=== PATIENT | male | born 1975 | race Caucasian/White ===

== ENCOUNTER 2020-12-28 06:34 | Outpatient (REF) | payer OTHER, SELFPAY ==
[2020-12-28 07:36] LABS: Estimated Average Glucose 148 mg/dL; Hemoglobin A1c % 6.8 %
[2020-12-28 07:51] LABS: Alanine Aminotransferase 43 U/L (0-40); Albumin Level 4.7 g/dL (3.5-5.0); Alkaline Phosphatase 85 U/L (39-117); Anion Gap 14 (12-20); Aspartate Amino Transferase 25 U/L (5-37); Bilirubin Total 0.6 mg/dL (0.0-1.0); Blood Urea Nitrogen 17 mg/dL (9-16); Calcium 9.8 mg/dL (8.4-10.2); Carbon Dioxide 25 mmol/L (22-29); Chloride 100 mmol/L (96-108); Cholesterol 200 mg/dL; Estimated Glomerular Filt Rate > 60; Glucose Fasting 210 mg/dL (60-99); HDL Cholesterol 41 mg/dL; LDL Cholesterol Calculated 123 mg/dl; Potassium 4.6 mmol/L (3.3-5.1); Sodium 134 mmol/L (135-145); Total Protein 7.9 g/dL (6.5-8.0); Triglycerides 183 mg/dL
[2020-12-28 07:54] LABS: Creatinine Urine 198.21 mg/dL; Microalbum/Creatinine Ratio Ur 17.1 ug/mg cr
[2020-12-28 08:13] LABS: TSH reflex Free T4 3.64 uIU/mL (0.32-4.0)
== END 2020-12-28 06:35 | disposition home or self-care (01) ==
LOC: HO.LAB 06:34
PROVIDERS: PCP Nurse Practitioner Family; Visit Provider Nurse Practitioner Family
DX: Z00.00 Encounter for general adult medical examination without abnormal findings (principal); E11.9 Type 2 diabetes mellitus without complications
CPT/HCPCS: 36415; 80053; 80061; 82043; 83036; 84443

== ENCOUNTER 2021-02-27 06:04 | Outpatient (REF) | payer OTHER, SELFPAY ==
[2021-02-27 12:08] LABS: Alanine Aminotransferase 63 U/L (0-40); Albumin Level 4.5 g/dL (3.5-5.0); Alkaline Phosphatase 66 U/L (39-117); Anion Gap 15 (12-20); Aspartate Amino Transferase 45 U/L (5-37); Bilirubin Total 0.7 mg/dL (0.0-1.0); Blood Urea Nitrogen 11 mg/dL (9-16); Calcium 9.7 mg/dL (8.4-10.2); Carbon Dioxide 26 mmol/L (22-29); Chloride 102 mmol/L (96-108); Cholesterol 166 mg/dL; Estimated Glomerular Filt Rate > 60; Glucose Random 118 mg/dL (60-115); HDL Cholesterol 37 mg/dL; LDL Cholesterol Calculated 81 mg/dl; Potassium 4.7 mmol/L (3.3-5.1); Sodium 138 mmol/L (135-145); Total Protein 7.3 g/dL (6.5-8.0); Triglycerides 244 mg/dL
== END 2021-02-27 06:05 | disposition home or self-care (01) ==
LOC: HO.HMGCLDS 06:04
PROVIDERS: PCP Nurse Practitioner Family; Visit Provider Nurse Practitioner Family
DX: Z00.00 Encounter for general adult medical examination without abnormal findings (principal); E78.5 Hyperlipidemia, unspecified; E11.9 Type 2 diabetes mellitus without complications
CPT/HCPCS: 36415; 80053; 80061

== ENCOUNTER 2021-07-03 06:01 | Outpatient (REF) | payer OTHER, SELFPAY ==
[2021-07-03 11:45] LABS: Appearance Urine CLOUDY; Color Urine YELLOW; Glucose Urine UA 100 MG/DL (NEG); Leukocyte Esterase Urine NEG (NEG); Nitrite Urine NEG (NEG); Specific Gravity - Urine 1.025 (1.005-1.025); Urine Blood NEG (NEG); Urine Ketones NEG (NEG); Urine Protein NEG (NEG-TRACE)
[2021-07-03 11:56] LABS: TSH reflex Free T4 3.52 uIU/mL (0.32-4.0)
[2021-07-03 12:04] LABS: Alanine Aminotransferase 39 U/L (0-40); Albumin Level 4.2 g/dL (3.5-5.0); Alkaline Phosphatase 72 U/L (39-117); Anion Gap 12 (12-20); Aspartate Amino Transferase 27 U/L (5-37); Bilirubin Total 0.5 mg/dL (0.0-1.0); Blood Urea Nitrogen 7 mg/dL (9-16); Calcium 9.5 mg/dL (8.4-10.2); Carbon Dioxide 27 mmol/L (22-29); Chloride 104 mmol/L (96-108); Cholesterol 145 mg/dL; Estimated Glomerular Filt Rate > 60; Glucose Fasting 141 mg/dL (60-99); HDL Cholesterol 32 mg/dL; LDL Cholesterol Calculated 68 mg/dl; Potassium 4.3 mmol/L (3.3-5.1); Sodium 139 mmol/L (135-145); Total Protein 6.9 g/dL (6.5-8.0); Triglycerides 225 mg/dL
[2021-07-03 12:06] LABS: Estimated Average Glucose 143 mg/dL; Hemoglobin A1c % 6.6 %
== END 2021-07-03 06:02 | disposition home or self-care (01) ==
LOC: HO.HMGCLDS 06:01
PROVIDERS: PCP Nurse Practitioner Family; Visit Provider Nurse Practitioner Family
DX: I10 Essential (primary) hypertension (principal); E11.9 Type 2 diabetes mellitus without complications
CPT/HCPCS: 36415; 80053; 80061; 81003; 83036; 84443

== ENCOUNTER 2021-12-04 06:01 | Outpatient (REF) | payer OTHER, SELFPAY ==
[2021-12-04 11:33] LABS: Appearance Urine TURBID; Color Urine YELLOW; Glucose Urine UA 500 MG/DL (NEG); Leukocyte Esterase Urine NEG (NEG); Nitrite Urine NEG (NEG); PH 5.5 (5.0-8.0); Specific Gravity - Urine >= 1.030 (1.005-1.025); Urine Blood NEG (NEG); Urine Ketones 15 MG/DL (NEG); Urine Protein TRACE MG/DL (NEG-TRACE)
[2021-12-04 11:39] LABS: Estimated Average Glucose 189 mg/dL; Hemoglobin A1c % 8.2 %
[2021-12-04 12:06] LABS: Alanine Aminotransferase 41 U/L (0-40); Albumin Level 4.2 g/dL (3.5-5.0); Alkaline Phosphatase 79 U/L (39-117); Anion Gap 12 (12-20); Aspartate Amino Transferase 31 U/L (5-37); Bilirubin Total 0.5 mg/dL (0.0-1.0); Blood Urea Nitrogen 9 mg/dL (9-16); Calcium 9.4 mg/dL (8.4-10.2); Carbon Dioxide 26 mmol/L (22-29); Chloride 103 mmol/L (96-108); Cholesterol 153 mg/dL; Estimated Glomerular Filt Rate > 60; Glucose Fasting 185 mg/dL (60-99); HDL Cholesterol 32 mg/dL; LDL Cholesterol Calculated 79 mg/dl; Potassium 4.3 mmol/L (3.3-5.1); Sodium 137 mmol/L (135-145); Triglycerides 212 mg/dL
[2021-12-04 12:30] LABS: TSH reflex Free T4 4.01 uIU/mL (0.32-4.0)
[2021-12-04 13:59] LABS: Free T4 (Free Thyroxine) 0.96 ng/dL (0.71-1.85)
[2021-12-07 19:56] LABS: TS Negative Control Passed; TS Panel A 0; TS Panel B 0; TS Positive Control Passed; TSpotTB Negative (Negative)
== END 2021-12-04 06:02 | disposition home or self-care (01) ==
LOC: HO.HMGCLDS 06:01
PROVIDERS: Visit Provider Nurse Practitioner Family
DX: E11.9 Type 2 diabetes mellitus without complications (principal); Z11.1 Encounter for screening for respiratory tuberculosis
CPT/HCPCS: 36415; 80053; 80061; 81003; 83036; 84439; 84443; 86481

== ENCOUNTER → 2022-01-20 10:19 | Outpatient (BNVA) | payer OTHER, SELFPAY | PROVIDERS: PCP Nurse Practitioner Family; Visit Provider Nurse Practitioner Family | DX: K21.9 Gastro-esophageal reflux disease without esophagitis (principal); Z12.11 Encounter for screening for malignant neoplasm of colon ==

== ENCOUNTER 2022-04-14 07:26 | Day surgery (SDC) | payer OTHER, SELFPAY ==
[2022-04-07 17:32] VITALS: BMI 39.9
--- NOTE | 2022-04-11 08:37 | HO.ANESPROP2 ---
Documented by User: Rosa Salazar NP 04/11/22 08:39 HPI - Anesthesia Eval Consult details Narrative: 46yo M for Colonoscopy PMFSH Active Problems Active Problems: All Active Problems (Updated 03/12/22 @ 17:23 by TIMA ClaytonCARTER) COVID (Acute) Screening for colon cancer (Acute) Screening-pulmonary TB (Acute) HTN (hypertension) (Acute) Dyslipidemia (Acute) Diabetes (Acute) Physical exam (Acute) Gout attack (Acute) Past Medical History Medical History (Updated 04/11/22 @ 08:37 by Rosa Salazar NP) Diabetes Dyslipidemia HTN (hypertension) Family History Family History Father No problems noted. Mother No problems noted. Brother No problems noted. Sister No problems noted. Son No problems noted. Son No problems noted. Surgical History Surgical History History of hip replacement, total Hx of cholecystectomy Social History Social History Housing: House Alcohol intake: current Alcohol intake frequency: 3 or more drinks per day Alcohol type: beer Patient Tobacco Use Status: Current everyday Tobacco user Tobacco use type: Cigarette Cigarette Packs Per Day: 1.5 Years Smoked: 45 years e-Cigarette/Vaping Use: Never Used Use of substances other than those prescribed or required for medical reasons: No Are you DNR?: No Advance Directives: No Advance Directives Information Provided: Yes service: Yes Current occupational status: employed Current occupation: [employer] Current occupational exposures/hazards: No Meds Allergies Allergy/AdvReac Type Severity Reaction Status Date / Time amoxicillin [AMOXICILLIN] Allergy Mild HIVES Verified 03/12/22 17:20 Onzrxvk-GWA-PvD Reductase Allergy Mild severe leg Verified 03/12/22 17:20 Inhibitor cramps Home Medications Medication Instructions Recorded Confirmed Last Taken Type lancets 28 gauge (FreeStyle #100 ea 12/25/20 10/01/21 Unknown History Lancets) Exam Exam Date and Time: April 11, 2022 0837 Height,Weight and Vital Signs: Height 5 ft 11 in Weight 129.727 kg Pertinent Lab Results Pertinent Lab Results: Laboratory Tests 11/25/18 12/04/21 17:25 06:07 WBC 11.3 H Hgb 16.1 Hct 45.4 Plt Count 233 Sodium 137 Potassium 4.3 Chloride 103 Carbon Dioxide 26 BUN 9 Creatinine 1.10 Assessment and Plan Assessment Anesthesia Assessment: Chart Reviewed Documented by User: Maira Yen MD 04/14/22 08:27 [facility] Past Medical History Medical History (Updated 04/11/22 @ 08:37 by Rosa Salazar NP) Diabetes Dyslipidemia HTN (hypertension) Family History Family History Father No problems noted. Mother No problems noted. Brother No problems noted. Sister No problems noted. Son No problems noted. Son No problems noted. Family history of problems with anesthesia: No Surgical History Surgical History History of hip replacement, total Hx of cholecystectomy History of Problems with Anesthesia: No Social History Social History Housing: House Alcohol intake: current Alcohol intake frequency: 3 or more drinks per day Alcohol type: beer Patient Tobacco Use Status: Current everyday Tobacco user Tobacco use type: Cigarette Cigarette Packs Per Day: 1.5 Years Smoked: 45 years e-Cigarette/Vaping Use: Never Used Use of substances other than those prescribed or required for medical reasons: No Are you DNR?: No Advance Directives: No Advance Directives Information Provided: Yes service: Yes Current occupational status: employed Current occupation: [employer] Current occupational exposures/hazards: No Meds Allergies Allergy/AdvReac Type Severity Reaction Status Date / Time amoxicillin [AMOXICILLIN] Allergy Mild HIVES Verified 03/12/22 17:20 Rhqhoov-PAZ-VmF Reductase Allergy Mild severe leg Verified 03/12/22 17:20 Inhibitor cramps Home Medications Medication Instructions Recorded Confirmed Last Taken Type lancets 28 gauge (FreeStyle #100 ea 12/25/20 10/01/21 Unknown History Lancets) Exam Airway Mallampati Class: II TM Dist: >3cm Neck ROM: Full Heart: rrr Lungs: cta Assessment and Plan Assessment Anesthesia Assessment: Anesthesia Plan Discussed and Chart Reviewed Final Anesthetic Review Family History of Problems with Anesthesia: No History of Problems with Anesthesia: No NPO: Yes ASA Class: II Final Preanesthetic Review: No Changes in Pt Med Stat, Meds/Allgs Chart Reviewed and Consent Obtained/Reviewed Patient Risk: Intermediate Procedure Risk: Intermediate Anesthetic Plan Anesthetic Plan: MAC: Disposition: Standard PACU
[2022-04-14 07:29] VITALS: BMI 39.7
[2022-04-14 07:44] VITALS: BP 140/84; PULSE 75; RESP 18; TEMP 36.7; O2SAT 97
[2022-04-14 07:46] LABS: Glucose, Whole Blood 142 mg/dL (60-115)
--- NOTE | 2022-04-14 07:54 | MHC.SHP ---
Pre-Procedural Eval Section A Date of Service: 04/14/22 The patient is an INPATIENT: No The History & Physical has been completed within 30 days and I have reviewed it.: No Section B Chief Complaint: screening Details of Present Illness: Colon cancer screening Relevant Family History (Specify if Yes): No Relevant Social History: Tobacco Use Present Medications: see Short Stay Collaborative assessment Medical History: Significant History (Diabetes mellitus, hypertension, dyslipidemia) History of Previous Operations: Relevant previous surgery/procedure and date(s) (History of hip replacement, total Hx of cholecystectomy) Allergies: Allergies Allergy/AdvReac Type Severity Reaction Status Date / Time amoxicillin [AMOXICILLIN] Allergy Mild HIVES Verified 03/12/22 17:20 Jxparre-TVE-XcN Reductase Allergy Mild severe leg Verified 03/12/22 17:20 Inhibitor cramps Review of Systems Sugical H&P ROS: Negative: Constitution, Cardiovascular, Respiratory and Gastrointestinal Exam Surgical H&P Exam: Normal: Heart, Normal: Lungs, Normal: Extremities and Normal: Abdomen Plan Diagnosis/Plan: Unchanged I have reviewed the history and physical and performed a pertinent physical examination on my patient. No changes have occurred unless specified.
--- NOTE | 2022-04-14 07:55 | P.OP_ITS ---
Operative Note Operative Note Date of Service: 04/14/22 Narrative: Pre-op diagnosis: Colon cancer screening (1st colonoscopy) Post-op diagnosis:?other (Colon polyps, diverticulosis, hemorrhoids) Procedure: COLONOSCOPY TILL CECUM WITH BIOPSIES, SNARE POLYPECTOMY AND SUBMUCOSAL INJECTION Consent: Indications for the procedure and potential complications of bleeding, perforation, reaction to medications and missed diagnosis were discussed with the patient and informed consent was obtained. Instrument: Olympus PCF H 190 L variable stiffness pediatric colonoscope Monitoring: Vital signs and clinical assessment, intermittent blood pressure monitoring, continuous EKG monitoring, Pulse oximetry and Carbon Dioxide monitoring were done throughout the procedure. Colon withdrawl time was 27 minutes. Procedure: The patient was placed in the left lateral decubitis position and pre-procedure medications were administered. After a digital rectal examination of the ano-rectum, the video colonoscope was inserted into the rectum and advanced through the colon to the cecum. The colonoscope was slowly withdrawn in a retrograde panoramic fashion and the colon mucosa was carefully examined including a retroflexed view of the rectum. Findings and interventions are described below. Procedure Difficulty: Without difficulty Findings: Terminal Ileum: Not evaluated Cecum:? Normal Ascending Colon:? Normal Transverse Colon:? Normal Descending Colon:? Moderate diverticulosis Sigmoid Colon:? A 6-7 mm sessile polyp at 30 cms - biopsied. Edematous folds with patchy erythema from 25 to 40 cms - biopsies were obtained to rule out colitis.? Moderate diverticulosis Rectum:? A 3 x 2 cms sessile polyp from 5 to 8 cms - raised with 8 cc of Orise solution and removed with a hot snare Ano-rectum:? Moderate internal hemorrhoids Colon preparation:? Good? Impression and Post Procedure Diagnosis: Colonoscopy Findings: One large and one small polyps removed Edematous folds with patchy erythema from 25 to 40 cms in an area of diverticulosis - ? chronic segmental diverticulitis - biopsies were obtained to rule out colitis. Moderate diverticulosis seen in the left colon Moderate hemorrhoids on retroflexed exam. Plan: Await pathology results Patient has an appointment on 04/21/22 in the GI Clinic with Myah Larios FNP- BC . Repeat Colonoscopy interval based on path results - flex sig in 3-6 months if rectal polyp polyp is adenomatous and 10 years if polyps are hyperplastic. Above findings were reviewed with the patient and colon polyps and diverticulosis handouts were given in the discharge area Surgeon: Joellen Jaquez MD Anesthesia:?MAC (Dr Sutherland) Was an Dam Tender Assistant used for this Procedure?:?Yes Dam Tender Assistant:?Zoe Phelps Estimated blood loss (mL):?0 Pathology:?other (A. sigmoid colon bxs, R/O colitis? B. sigmoid colon polyp? C. rectal polyp with Orise) Condition:?stable Disposition:?PACU
[2022-04-14 09:15] VITALS: BP 118/72; PULSE 73; RESP 16; TEMP 36.7; O2SAT 94
[2022-04-14 09:30] VITALS: BP 127/85; PULSE 65; RESP 16; TEMP 36.7; O2SAT 97
== END 2022-04-14 09:49 | disposition home or self-care (01) ==
PROVIDERS: PCP Nurse Practitioner Family; Visit Provider Internal Medicine Gastroenterology
PROC: 0DJD8ZZ Inspection of Lower Intestinal Tract, Via Natural or Artificial Opening Endoscopic (ICD-10-PCS; CPT 45378; principal; 2022-04-14 08:30)
DX: Z12.11 Encounter for screening for malignant neoplasm of colon (principal); D12.8 Benign neoplasm of rectum; K63.5 Polyp of colon; K57.30 Diverticulosis of large intestine without perforation or abscess without bleeding; K64.8 Other hemorrhoids; K21.9 Gastro-esophageal reflux disease without esophagitis; I10 Essential (primary) hypertension; E11.9 Type 2 diabetes mellitus without complications; Z79.84 Long term (current) use of oral hypoglycemic drugs; Z79.899 Other long term (current) drug therapy; Z88.1 Allergy status to other antibiotic agents; Z88.8 Allergy status to other drugs, medicaments and biological substances; Z90.49 Acquired absence of other specified parts of digestive tract; Z96.641 Presence of right artificial hip joint; F17.210 Nicotine dependence, cigarettes, uncomplicated
CPT/HCPCS: 45385; 45380; 45381; 82947; 88305

== ENCOUNTER 2022-05-21 06:00 | Outpatient (REF) | payer OTHER, SELFPAY ==
[2022-05-21 11:22] LABS: Appearance Urine HAZY; Color Urine YELLOW; Glucose Urine UA 100 MG/DL (NEG); Leukocyte Esterase Urine NEG (NEG); Nitrite Urine NEG (NEG); Urine Blood NEG (NEG); Urine Ketones NEG (NEG); Urine Protein NEG (NEG-TRACE)
[2022-05-21 11:43] LABS: Estimated Average Glucose 148 mg/dL; Hemoglobin A1c % 6.8 %
[2022-05-21 12:02] LABS: Creatinine Urine 135.86 mg/dL; Microalbum/Creatinine Ratio Ur 16.9 ug/mg cr
[2022-05-21 12:10] LABS: Alanine Aminotransferase 41 U/L (0-40); Albumin Level 4.4 g/dL (3.5-5.0); Alkaline Phosphatase 69 U/L (39-117); Anion Gap 10 (12-20); Aspartate Amino Transferase 27 U/L (5-37); Bilirubin Total 0.6 mg/dL (0.0-1.0); Blood Urea Nitrogen 9 mg/dL (9-16); Calcium 9.5 mg/dL (8.4-10.2); Carbon Dioxide 27 mmol/L (22-29); Chloride 103 mmol/L (96-108); Cholesterol 161 mg/dL; Estimated Glomerular Filt Rate > 60; Glucose Fasting 158 mg/dL (60-99); HDL Cholesterol 37 mg/dL; LDL Cholesterol Calculated 90 mg/dl; Potassium 4.3 mmol/L (3.3-5.1); Sodium 136 mmol/L (135-145); Total Protein 7.2 g/dL (6.5-8.0); Triglycerides 172 mg/dL
== END 2022-05-21 06:01 | disposition home or self-care (01) ==
LOC: HO.HMGCLDS 06:00
PROVIDERS: Visit Provider Nurse Practitioner Family
DX: E11.9 Type 2 diabetes mellitus without complications (principal)
CPT/HCPCS: 36415; 80053; 80061; 81003; 82043; 83036; 84443

== ENCOUNTER 2022-08-29 12:33 | Day surgery (SDC) | payer BC, SELFPAY ==
[2022-08-26 13:50] VITALS: BMI 39.7
--- NOTE | 2022-08-28 12:11 | HO.ANESPROP2 ---
Documented by User: Rosa Salazar NP 08/28/22 12:11 HPI - Anesthesia Eval Consult details Narrative: 47yo M for Sigmoidoscopy Flexible ETOH daily PMFSH Active Problems Active Problems: All Active Problems (Updated 06/16/22 @ 17:07 by William Forbes, [facility]) Gout attack (Acute) Physical exam (Acute) Screening-pulmonary TB (Acute) Screening for colon cancer (Acute) COVID (Acute) Diabetes (Acute) Past Medical History Medical History Diabetes Diverticulosis Dyslipidemia HTN (hypertension) Tubular adenoma Family History Family History Father Substance use disorder Mother No problems noted. Brother No problems noted. Sister No problems noted. Son No problems noted. Son No problems noted. Family history of problems with anesthesia: No Surgical History Surgical History History of esophagogastroduodenoscopy (EGD) History of hip replacement, total History of surgery Hx of cholecystectomy Hx of colonoscopy History of Problems with Anesthesia: No Social History Social History (Updated 08/29/22 @ 13:51 by Sherri Wasserman MD) Housing: House Alcohol intake: current Alcohol intake frequency: 3 or more drinks per day Alcohol type: beer Patient Tobacco Use Status: Current everyday Tobacco user Tobacco use type: Cigarette Cigarette Packs Per Day: 1.5 Cigarettes Per Day: 30.0 Years Smoked: 32years Smoked in Last 30 Days: Yes e-Cigarette/Vaping Use: Never Used Second Hand Smoke Exposure: Yes Use of substances other than those prescribed or required for medical reasons: No Are you DNR?: No Advance Directives: No Advance Directives Information Provided: Yes service: Yes Current occupational status: employed Current occupation: [employer] Current occupational exposures/hazards: Yes Cognitive needs: No Hearing needs: No Vision needs: No Meds Allergies Allergy/AdvReac Type Severity Reaction Status Date / Time amoxicillin [AMOXICILLIN] Allergy Mild HIVES Verified 06/16/22 15:35 Yjgruxr-ZEK-MrO Reductase Allergy Mild severe leg Verified 06/16/22 15:35 Inhibitor cramps Home Medications Medication Instructions Recorded Confirmed Last Taken Type lancets 28 gauge (FreeStyle #100 ea 12/25/20 10/01/21 Unknown History Lancets) colchicine 0.6 mg tablet 0.6 mg PO DAILY PRN gout flare up 08/29/22 08/29/22 Unknown History Exam Exam Date and Time: August 28, 2022 1211 Height,Weight and Vital Signs: Height 5 ft 11 in Weight 129.274 kg Pertinent Lab Results Pertinent Lab Results: Laboratory Tests 05/21/22 06:05 Sodium 136 Potassium 4.3 Chloride 103 Carbon Dioxide 27 BUN 9 Creatinine 1.03 Assessment and Plan Assessment Anesthesia Assessment: Chart Reviewed Final Anesthetic Review Family History of Problems with Anesthesia: No History of Problems with Anesthesia: No Documented by User: Sherri Wasserman MD 08/29/22 13:51 [facility] Active Problems Active Problems: All Active Problems (Updated 06/16/22 @ 17:07 by William Forbes, [facility]) Gout attack (Acute) Physical exam (Acute) Screening-pulmonary TB (Acute) Screening for colon cancer (Acute) COVID (Acute) Diabetes (Acute) Daily ETOH Smoker Denies GRECIA Past Medical History Medical History Diabetes Diverticulosis Dyslipidemia HTN (hypertension) Tubular adenoma Family History Family History Father Substance use disorder Mother No problems noted. Brother No problems noted. Sister No problems noted. Son No problems noted. Son No problems noted. Surgical History Surgical History History of esophagogastroduodenoscopy (EGD) History of hip replacement, total History of surgery Hx of cholecystectomy Hx of colonoscopy Social History Social History (Updated 08/29/22 @ 13:51 by Sherri Wasserman MD) Housing: House Alcohol intake: current Alcohol intake frequency: 3 or more drinks per day Alcohol type: beer Patient Tobacco Use Status: Current everyday Tobacco user Tobacco use type: Cigarette Cigarette Packs Per Day: 1.5 Cigarettes Per Day: 30.0 Years Smoked: 32years Smoked in Last 30 Days: Yes e-Cigarette/Vaping Use: Never Used Second Hand Smoke Exposure: Yes Use of substances other than those prescribed or required for medical reasons: No Are you DNR?: No Advance Directives: No Advance Directives Information Provided: Yes service: Yes Current occupational status: employed Current occupation: [employer] Current occupational exposures/hazards: Yes Cognitive needs: No Hearing needs: No Vision needs: No Meds Allergies Allergy/AdvReac Type Severity Reaction Status Date / Time amoxicillin [AMOXICILLIN] Allergy Mild HIVES Verified 06/16/22 15:35 Heiuyzp-JWQ-PfQ Reductase Allergy Mild severe leg Verified 06/16/22 15:35 Inhibitor cramps Home Medications Medication Instructions Recorded Confirmed Last Taken Type lancets 28 gauge (FreeStyle #100 ea 12/25/20 10/01/21 Unknown History Lancets) colchicine 0.6 mg tablet 0.6 mg PO DAILY PRN gout flare up 08/29/22 08/29/22 Unknown History Exam Height,Weight and Vital Signs: Height 5 ft 11 in Weight 129.274 kg Vital Signs Temp Pulse Resp BP Pulse Ox O2 Del Method 08/29/22 12:57 97.3 F 77 16 136/84 97 Room Air Narrative Narrative: Lab Results 08/29/22 Range/Units 13:32 POC Glucose 129 H (60-115) mg/dL Airway Mallampati Class: II TM Dist: >3cm Neck ROM: Full Loose/Missing/Broken Teeth: Yes (Extraction bottom right) Heart: RRR Lungs: CTAB Assessment and Plan Final Anesthetic Review NPO: Yes ASA Class: III Final Preanesthetic Review: No Changes in Pt Med Stat, Meds/Allgs Chart Reviewed, Consent Obtained/Reviewed and Anes Risks/Benef Reviewed Patient Risk: Intermediate Procedure Risk: Low Assessment/Block/Sedation in SS: Assess/Block/Sedation-SS Anesthetic Plan Anesthetic Plan: MAC: Disposition: Standard PACU
[2022-08-29 12:45] VITALS: BMI 35.9
[2022-08-29 12:57] VITALS: BP 136/84; PULSE 77; RESP 16; TEMP 36.3; O2SAT 97
[2022-08-29] MEDS: Sodium Phosphate,Mono-Dibasic 133 ML ENEMA PR ×2 (13:10→13:17)
--- NOTE | 2022-08-29 13:13 | PC.NURSE ---
patient would prefer for self admin. bedside teaching performed. patient in bathroom admin fleet number one
[2022-08-29 13:36] LABS: Glucose, Whole Blood 129 mg/dL (60-115)
[2022-08-29] MEDS: Lactated Ringers 1,000 ML 100 ML IVCONT (13:43)
--- NOTE | 2022-08-29 14:10 | MHC.SHP ---
Pre-Procedural Eval Section A Date of Service: 08/29/22 The patient is an INPATIENT: No Section B Chief Complaint: Benign neoplasm,Diverticulosis of intestine, Details of Present Illness: colon cancer screening, follow-up of a large rectal polyp Relevant Family History (Specify if Yes): No Relevant Social History: Tobacco Use Present Medications: see Short Stay Collaborative assessment Medical History: Significant History (Diabetes Diverticulosis Dyslipidemia HTN (hypertension) Tubular adenoma) History of Previous Operations: Relevant previous surgery/procedure and date(s) (History of hip replacement, total Hx of cholecystectomy Hx of colonoscopy) Allergies: Allergies Allergy/AdvReac Type Severity Reaction Status Date / Time amoxicillin [AMOXICILLIN] Allergy Mild HIVES Verified 06/16/22 15:35 Bkluzbz-DMX-ZtP Reductase Allergy Mild severe leg Verified 06/16/22 15:35 Inhibitor cramps Review of Systems Sugical H&P ROS: Negative: Constitution, Cardiovascular, Respiratory and Gastrointestinal Exam Surgical H&P Exam: Normal: Heart, Normal: Lungs, Normal: Extremities and Normal: Abdomen Plan Diagnosis/Plan: Unchanged I have reviewed the history and physical and performed a pertinent physical examination on my patient. No changes have occurred unless specified.
--- NOTE | 2022-08-29 14:51 | P.BOP_ITS ---
Brief Operative Note Date of Service: 08/29/22 Pre-op diagnosis: colon cancer screen, follow-up of a large rectal polyp Post-op diagnosis: other ( colon polyps, diverticulosis, hemorrhoid) Procedure: FLEXIBLE SIGMOIDOSCOPY TO 40 CM WITH BIOPSIES AND SNARE POLYPECTOMY Surgeon: Joellen Jaquez MD Anesthesia: MAC Was an Mold Making [employer] Sheets Supervisor used for this Procedure?: No [employer] Sheets Supervisor: Man Nolasco Estimated blood loss (mL): 0 Pathology: other (A) Polyp Rectum at Polypectomy Site B) Polyp Rectal C) BXS Polypectomy site in Rectum) Condition: stable Disposition: PACU
--- NOTE | 2022-08-29 14:52 | P.OP_ITS ---
Operative Note Operative Note Date of Service: 08/29/22 Narrative: Pre-op diagnosis: colon cancer screen, follow-up of a large rectal polyp Post-op diagnosis:?other ( colon polyps, diverticulosis, hemorrhoid) Surgeon: Joellen Jaquez MD Anesthesia:?MAC FLEXIBLE SIGMOIDOSCOPY TILL 40 CMS WITH BIOPSIES AND SNARE POLYPECTOMY Consent: Indications for the procedure and potential complications of bleeding, perforation, reaction to medications and missed diagnosis were discussed with the patient and informed consent was obtained. Instrument: Olympus PCF H 190 L variable stiffness pediatric colonoscope Monitoring: Vital signs and clinical assessment, intermittent blood pressure monitoring, continuous EKG monitoring, Pulse oximetry and Carbon Dioxide monitoring were done throughout the procedure. Procedure: The patient was placed in the left lateral decubitis position and pre-procedure medications were administered. After a digital rectal examination of the ano-rectum, the video colonoscope was inserted into the rectum and advanced through the colon to the sigmoid colon at 40 cms. The colonoscope was slowly withdrawn in a retrograde panoramic fashion and the colon mucosa was carefully examined including a retroflexed view of the rectum. Findings and interventions are described below. Procedure Difficulty: Without difficulty Findings: Sigmoid Colon: Moderate diverticulosis Rectum: A 10-12 mm sessile polyp at 10 cms (at previous polypectomy site) - removed with a hot snare. Biopsies obtained from past polypectomy site. A 4-5 mm sessile polyp removed with a cold bx. Ano-rectum: Moderate internal hemorrhoids Colon preparation: Good Impression and Post Procedure Diagnosis: Colonoscopy Findings: Two small to medium sized polyps removed Moderate diverticulosis seen in the sigmoid colon Moderate hemorrhoids on retroflexed exam. Plan: Await pathology results Patient has an appointment on 09/11/22 in the GI Clinic with Myah Larios FNP-BC. Repeat Colonoscopy interval based on path results - in 3 years if polyps are a denomatous and due to a hx of colon polyps. Above findings were reviewed with the patient and colon polyps and diverticulosis handouts were given in the discharge area
[2022-08-29 14:56] VITALS: BP 106/53; PULSE 75; RESP 16; TEMP 37.1; O2SAT 94
[2022-08-29 15:11] VITALS: BP 118/67; PULSE 75; RESP 16; TEMP 37.1; O2SAT 94
== END 2022-08-29 15:20 | disposition home or self-care (01) ==
PROVIDERS: PCP Nurse Practitioner Family; Visit Provider Internal Medicine Gastroenterology
PROC: 0DJD8ZZ Inspection of Lower Intestinal Tract, Via Natural or Artificial Opening Endoscopic (ICD-10-PCS; CPT 45330; principal; 2022-08-29 13:50)
DX: Z12.11 Encounter for screening for malignant neoplasm of colon (principal); Z86.010 Personal history of colon polyps; K62.1 Rectal polyp; K57.30 Diverticulosis of large intestine without perforation or abscess without bleeding; K64.8 Other hemorrhoids; K21.9 Gastro-esophageal reflux disease without esophagitis; E78.5 Hyperlipidemia, unspecified; I10 Essential (primary) hypertension; E11.9 Type 2 diabetes mellitus without complications; Z79.84 Long term (current) use of oral hypoglycemic drugs; Z79.899 Other long term (current) drug therapy; Z88.1 Allergy status to other antibiotic agents; Z90.49 Acquired absence of other specified parts of digestive tract; F17.210 Nicotine dependence, cigarettes, uncomplicated
CPT/HCPCS: 45338; 45331; 82947; 88305; J2250

== ENCOUNTER 2023-06-06 13:01 | Outpatient (AMB) | payer BC, SELFPAY ==
--- NOTE | 2023-06-06 13:14 | AM.OFFWIN_ITS ---
Intake Vital Signs 06/06/23 13:18 BP 110/68 Blood Pressure Location Lt brachial Position Sitting Pulse 71 Pulse Source Pulse Oximeter Temp 98.8 F Temp Source Oral Pulse Oximetry (%) 98 Oxygen Delivery Method Room Air Intake Visit Reasons: Rt eye Metal? Intake Note: Pt is here today c/o Rt eye metal: Pt was working on his car Patient Tobacco Use Status: Current everyday Tobacco user Allergies amoxicillin [AMOXICILLIN] Allergy (Mild, Verified 06/06/23 13:22) HIVES Drdezxo-TJH-XgG Reductase Inhibitor Allergy (Mild, Verified 06/06/23 13:22) severe leg cramps Medication List - Last Reconciled 06/06/23 by Patrizia Monreal CNP blood sugar diagnostic As directed blood sugar diagnostic (FreeStyle Lite Strips) check glucose twice a day blood-glucose meter (FreeStyle Lite Meter kit) check glucose twice a day cholecalciferol (vitamin D3) 50 mcg PO DAILY 90 days colchicine (gout) 0.6 mg PO DAILY PRN diltiazem HCl ER 60 mg PO BID ezetimibe 10 mg PO DAILY 90 days lancets (FreeStyle Lancets) check glucose twice a day lisinopril 20 mg PO DAILY metformin 500 mg PO BID 90 days HPI HPI Comments History of Present Illness Details 48-year-old male presents today for metal in right eye after working on his car, he reports grinding metal with a thread grinder tool and a piece of metal got under his protective eye glasses in left inner corner. He reports was able to remove a small piece of metal w/ a q-tip, but he feels remaining fragment. He denies loss of vision, or visual changes, denies fever, chills, CP, SOB, headaches, abdominal pain, nausea, vomiting, changes in bowels or bladder. [facility] Medical History Diabetes Diverticulosis Dyslipidemia HTN (hypertension) Tubular adenoma Surgical History History of esophagogastroduodenoscopy (EGD) History of hip replacement, total History of surgery Hx of cholecystectomy Hx of colonoscopy Family History Father Substance use disorder Mother No problems noted. Brother No problems noted. Sister No problems noted. Son No problems noted. Son No problems noted. Social History Housing: House Alcohol intake: current Alcohol intake frequency: 3 or more drinks per day Alcohol type: beer Patient Tobacco Use Status: Current everyday Tobacco user Tobacco use type: Cigarette Cigarette Packs Per Day: 0.75 Cigarettes Per Day: 15 Years Smoked: 32years e-Cigarette/Vaping Use: Never Used Second Hand Smoke Exposure: Yes service: Yes Current occupational status: employed Current occupation: [employer] Current occupational exposures/hazards: Yes Cognitive needs: No Hearing needs: No Vision needs: No Review of Systems Const All systems reviewed & are unremarkable except as noted in HPI and below Physical Exam Vital Signs: Last Vital Signs Temp 98.8 F 06/06/23 13:18 Pulse 71 06/06/23 13:18 BP 110/68 06/06/23 13:18 Pulse Ox 98 06/06/23 13:18 Oxygen Delivery Method Room Air 06/06/23 13:18 Const General: healthy appearing and no acute distress Nutritional Appearance: well nourished Orientation/consciousness: patient oriented x3 Limitations: no limitations HEENT Head: Yes normocephalic and Yes atraumatic Eyes Visual Macias: normal visual macias by confrontation Periorbital: periorbital findings abnormal right periorbital tenderness and periorbital erythema Eyelids: Yes eyelids normal Corneas: fluorescein used (small pin point corneal abrasion right eye, left side of cornea;) and other (no metal or foreign body viewed ) Neck Neck: Yes normal visual inspection, Yes no lymphadenopathy and Yes supple Resp Effort & Inspection: normal respiratory effort, no cough, no respiratory distress and not tachypneic Auscultation: clear to auscultation bilaterally Cardio Rate: regular rate Rhythm: regular rhythm Heart sounds: S1 normal heart sound present and S2 normal heart sound present Peripheral pulses: Peripheral pulses 2+ throughout Neuro General: patient oriented x3, gait normal and moves all extremities Extrem General: Yes normal to inspection, Yes full ROM, Yes capillary refill normal and Yes no clubbing, cyanosis or edema Psych Appearance: well kempt Mental Status: mental status grossly normal Speech and movement: Normal speech and movement present Affect: normal affect Attitude: cooperative Assessment & Plan Assessment & Plan (1) Intraocular foreign body of right eye: Code(s): S05.51XA - Penetrating wound with foreign body of right eyeball, initial encounter Plan: 48-year-old male seen today for piece of metal in right eye w/ associated welding of metal while remodeling his car. No metal piece viewed or remaining + pin point corneal abrasion viewed with fluorescein Ofloxacin 0.3% 1-2 gtts right eye every 2-4hrs x 2 days, then 1-2 gtts 4 times a day for the remain 5 days. Prednisolone acetate 1% eye drop right eye, 1-2 gtts bid x 5 days Proparacaine 1 gtt right eye q 5 minutes x 5 drops F/U with Retail Sales Representative; referral sent. Orders: Referrals Optometry Referral S05.51XA - Penetrating wound with foreign body of right eyeball, initial encounter Medications: New ofloxacin 0.3% put 1-2 drps into affected eye(s) every 2-4 h x 2 days, then 1-2 drps 4 times/day days 3-7 ophthalmic (eye) 10 mL 0RF S05.51XA - Penetrating wound with foreign body of right eyeball, initial encounter proparacaine 0.5% 1 drp ophthalmic-Right Q5M 15 mL 0RF S05.51XA - Penetrating wound with foreign body of right eyeball, initial encounter prednisolone acetate 1% 1 drp ophthalmic (eye) BID 10 mL 0RF S05.51XA - Penetrating wound with foreign body of right eyeball, initial encounter Coding Level of Care Code Est Pt Level 3 (61700) Diagnoses Intraocular foreign body of right eye S05.51XA
[2023-06-06 13:18] VITALS: BP 110/68; PULSE 71; TEMP 37.1; O2SAT 98
== END 2023-06-06 13:51 | disposition home or self-care (01) ==
PROVIDERS: PCP Nurse Practitioner Family; Visit Provider Nurse Practitioner Acute Care
DX: S05.51XA Penetrating wound with foreign body of right eyeball, initial encounter (principal)
CPT/HCPCS: 99213

== ENCOUNTER 2023-07-08 06:01 | Outpatient (REF) | payer BC, SELFPAY ==
[2023-07-08 11:27] LABS: Appearance Urine Clear; Color Urine Yellow; Glucose Urine UA Negative (Negative); Leukocyte Esterase Urine Negative (Negative); Nitrite Urine Negative (Negative); PH 5.5 (5.0-9.0); Specific Gravity - Urine 1.015 (1.005-1.025); Urine Blood Negative (Negative); Urine Ketones Negative (Negative); Urine Protein Negative (Neg-Trace)
[2023-07-08 11:47] LABS: MANUAL DIFF FLAG NO
[2023-07-08 12:02] LABS: Basophils Absolute Auto 0.1 X10*3/uL (0.0-0.2); Basophils Percent Auto 0.7 % (0-2); Eosinophils Absolute Auto 0.2 X10*3/uL (0.0-0.4); Eosinophils Percent Auto 1.3 % (0-4); Hematocrit 52.3 % (42.0-52.0); Hemoglobin 18.4 g/dl (14.0-18.0); Imm Gran Abs Auto 0.04 X10*3/uL (0.00-0.03); Imm Gran Pct Auto 0.3 % (0.0-0.4); Lymphocytes Absolute Auto 3.1 X10*3/uL (1.2-4.9); Lymphocytes Percent Auto 22.3 % (20-40); Mean Corpuscular HGB Conc 35.2 g/dl (31.0-36.0); Mean Corpuscular Hemoglobin 33.6 pg (27.0-33.0); Mean Corpuscular Volume 95.4 fL (80.0-98.0); Mean Platelet Volume 10.5 fL (9.4-12.4); Monocytes Percent Auto 6.9 % (2-11); Neutrophils Absolute Auto 9.4 x10*3/uL (2.0-8.3); Neutrophils Percent Auto 68.5 % (45-73); Platelet Count 227 X10*3/uL (160-400); Red Blood Count 5.48 X10*6/uL (4.60-5.80); Red Cell Distribution Width 13.1 % (11.0-16.0); White Blood Count 13.7 X10*3/uL (4.8-10.8)
[2023-07-08 12:33] LABS: Creatinine Urine 110.23 mg/dL; Microalbum/Creatinine Ratio Ur 5.4 ug/mg cr (<30)
[2023-07-08 12:43] LABS: Alanine Aminotransferase 27 U/L (0-40); Albumin Level 4.4 g/dL (3.5-5.0); Alkaline Phosphatase 63 U/L (39-117); Anion Gap 13 (12-20); Aspartate Amino Transferase 29 U/L (5-37); Bilirubin Total 0.8 mg/dL (0.0-1.0); Blood Urea Nitrogen 10 mg/dL (9-16); Calcium 10.1 mg/dL (8.4-10.2); Carbon Dioxide 28 mmol/L (22-29); Chloride 103 mmol/L (96-108); Cholesterol 153 mg/dL (<200); Estimated Glomerular Filt Rate > 60; Glucose Fasting 88 mg/dL (60-99); HDL Cholesterol 40 mg/dL (>40); LDL Cholesterol Calculated 93 mg/dL (<100); Potassium 4.1 mmol/L (3.3-5.1); Sodium 140 mmol/L (135-145); TSH reflex Free T4 2.37 uIU/mL (0.32-4.0); Total Protein 7.5 g/dL (6.5-8.0); Triglycerides 104 mg/dL (<150)
== END 2023-07-08 06:02 | disposition home or self-care (01) ==
LOC: HO.HMGCLDS 06:01
PROVIDERS: PCP Nurse Practitioner Family; Visit Provider Nurse Practitioner Family
DX: E11.9 Type 2 diabetes mellitus without complications (principal)
CPT/HCPCS: 36415; 80053; 80061; 81003; 82043; 82570; 84443; 85025

== ENCOUNTER 2023-07-13 15:29 | Outpatient (AMB) | payer BC, SELFPAY ==
[2023-07-13 15:39] VITALS: BP 124/78; PULSE 80; O2SAT 97; BMI 34.7
--- NOTE | 2023-07-13 15:39 | A.OFFPC_ITS ---
Vital Signs 07/13/23 15:39 Height 5 ft 11 in Weight 249 lb BMI 34.7 BP 124/78 Blood Pressure Location Lt brachial Position Sitting Pulse 80 Pulse Source Pulse Oximeter Pulse Oximetry (%) 97 Oxygen Delivery Method Room Air Intake Visit Reasons: 6 month follow up DM Allergies amoxicillin [AMOXICILLIN] Allergy (Mild, Verified 07/13/23 15:41) HIVES Ltikcie-BAU-ZtY Reductase Inhibitor Allergy (Mild, Verified 07/13/23 15:41) severe leg cramps Medication List - Last Reconciled 07/13/23 [facility] blood sugar diagnostic As directed blood sugar diagnostic (FreeStyle Lite Strips) check glucose twice a day blood-glucose meter (FreeStyle Lite Meter kit) check glucose twice a day cholecalciferol (vitamin D3) 50 mcg PO DAILY 90 days colchicine (gout) 0.6 mg PO DAILY PRN diltiazem HCl ER 60 mg PO BID ezetimibe 10 mg PO DAILY 90 days lancets (FreeStyle Lancets) check glucose twice a day lisinopril 20 mg PO DAILY metformin 500 mg PO DAILY 90 days ofloxacin 0.3% put 1-2 drps into affected eye(s) every 2-4 h x 2 days, then 1-2 drps 4 times/day days 3-7 ophthalmic (eye) prednisolone acetate 1% 1 drp ophthalmic (eye) BID proparacaine 0.5% 1 drp ophthalmic-Right Q5M 5 doses Tobacco use date assessed: 07/13/23 Dental Screening Dental Screen Date: 07/13/23 Did you have a dental visit in the last 12 months?: Yes Did you have a dental problem in the last 6 months where you did not have access to dental care?: No Was dental information given to patient?: Patient has dentist HPI 6 month follow up DM HPI Details Pt is a diabetic, on an IRVIN. A1C in office today is 5.0. Microalbumin is up to date. Denies polyuria, polydipsia, and neuropathy. Pt denies any signs and symptoms of hypoglycemia and does know how to correct it. we will decrease his metformin to 500mg daily rather than bid. [facility] Medical History Diverticulosis Tubular adenoma HTN (hypertension) Dyslipidemia Diabetes Surgical History (Reviewed 07/13/23 @ 16:01 by William Forbes [facility]) History of surgery History of esophagogastroduodenoscopy (EGD) Hx of colonoscopy History of hip replacement, total Hx of cholecystectomy Family History (Reviewed 07/13/23 @ 16:11 by William Forbes [facility]) Father Substance use disorder Mother No problems noted. Brother No problems noted. Sister No problems noted. Son No problems noted. Son No problems noted. Social History (Reviewed 07/13/23 @ 16:11 by William Forbes [facility]) Housing: House Alcohol intake: current Alcohol intake frequency: 3 or more drinks per day Alcohol type: beer Patient Tobacco Use Status: Current everyday Tobacco user Tobacco use type: Cigarette Cigarette Packs Per Day: 0.75 Cigarettes Per Day: 15 Years Smoked: 32years e-Cigarette/Vaping Use: Never Used Second Hand Smoke Exposure: Yes service: Yes Current occupational status: employed Current occupation: [employer] Current occupational exposures/hazards: Yes Cognitive needs: No Hearing needs: No Vision needs: No Questionnaire Thrive Questionnaire Date Thrive assessed: 10/01/21 MARY-7 AMB Questionnaire MARY-7 Date MARY - 7 assessed: 10/01/21 Source: Developed by Drs. Man Cormier, Chanelle Gutierrez, Silvio Price and colleagues, with an educational genie from [employer]. Review of Systems Const Reports as per HPI Physical exam (Primary Care) Vital Signs: Last Vital Signs Pulse 80 07/13/23 15:39 BP 124/78 07/13/23 15:39 Pulse Ox 97 07/13/23 15:39 Oxygen Delivery Method Room Air 07/13/23 15:39 BMI result Body Mass Index 34.7 Tobacco/Smoking Status: Tobacco use Status Tobacco use date assessed 07/13/23 07/13/23 15:44 Patient Tobacco Use Status Current everyday Tobacco 07/13/23 15:44 Tobacco use type Cigarette 07/13/23 15:44 e-Cigarette/Vaping Use Never Used 07/13/23 15:44 Thrive Assessment: Date of Thrive Assessment Date Thrive assessed 10/01/21 07/13/23 15:44 Const General: cooperative Nutritional Appearance: obese Orientation/consciousness: patient oriented x3 Resp Effort & Inspection: normal respiratory effort Cardio Rate: regular rate Rhythm: regular rhythm Heart sounds: S1 normal heart sound present, S2 normal heart sound present and Murmur heart sound present Neuro General: patient oriented x3 Extrem Other: bilat feet: + sensation with use of monofilament, large callous to plantar medial aspect of left big toe Psych Appearance: grossly normal Mental Status: mental status grossly normal Speech and movement: Normal speech and movement present Affect: normal affect Attitude: cooperative Thought process: Normal thought process present Thought content: Normal thought content present Insight: Good insight present (Psych) Judgement: Good judgement present (Psych) Results AMB Hemoglobin A1c AMB Hemoglobin A1c 5.0 % Last Edit by Rere Wells CMA on 07/13/23 15: 58 Assessment and Plan Assessment & Plan (1) Diabetes: Code(s): E11.9 - Type 2 diabetes mellitus without complications Plan: Labs ordered. Plan The patient agreed to the use of a medical language specialist for this encounter. Scribed for SYLWIA Goodman by Macey Vega medical language specialist, on 07/13/2023 at 15:55 EST. Orders: Orders Comprehensive [place]. Panel Fast Today E11.9 - Type 2 diabetes mellitus without complications TSH reflex Free T4 Today E11.9 - Type 2 diabetes mellitus without complications AMB Hemoglobin A1c Today E11.9 - Type 2 diabetes mellitus without complications Complete Blood Count Auto Diff Today E11.9 - Type 2 diabetes mellitus without complications UA CC w/rflx Micro + Cult Today E11.9 - Type 2 diabetes mellitus without complications Lipid Panel Today E11.9 - Type 2 diabetes mellitus without complications Microalbumin, Random (w Creat) Today E11.9 - Type 2 diabetes mellitus without complications Medications: Changed From metformin 500 mg PO BID 90 days 180 tabs 2RF To metformin 500 mg PO DAILY 90 days 90 tabs 2RF Refilled lisinopril 20 mg PO DAILY 90 tabs 1RF diltiazem HCl ER 60 mg PO BID 180 caps 1RF ezetimibe 10 mg PO DAILY 90 days 90 tabs 1RF Coding Level of Care Code Est Pt Level 3 (42290) Diagnoses Diabetes E11.9
== END 2023-07-13 17:18 | disposition home or self-care (01) ==
PROVIDERS: Visit Provider Nurse Practitioner Family
DX: E11.9 Type 2 diabetes mellitus without complications (principal)
CPT/HCPCS: 83036; 99213

== ENCOUNTER 2023-12-31 15:34 | Outpatient (AMB) | payer BC, SELFPAY ==
[2023-12-31 15:38] VITALS: BP 144/80; PULSE 70; TEMP 36.9; O2SAT 98; BMI 34.7
--- NOTE | 2023-12-31 15:38 | MHC.OFFWIV ---
Intake Vital Signs 12/31/23 15:38 Height 5 ft 11 in Weight 249 lb BMI 34.7 BP 144/80 H Blood Pressure Location Lt brachial Position Sitting Pulse 70 Pulse Source Pulse Oximeter Temp 98.4 F Temp Source Oral Pulse Oximetry (%) 98 Oxygen Delivery Method Room Air Intake Visit Reasons: EST/head pressure (lobby masked) Intake Note: pt is here for c/o head pressure Patient Tobacco Use Status: Current everyday Tobacco user Allergies amoxicillin [AMOXICILLIN] Allergy (Mild, Verified 12/31/23 15:39) HIVES Qhhaaeq-THS-TmX Reductase Inhibitor Allergy (Mild, Verified 12/31/23 15:39) severe leg cramps Do you need a note to return to daycare/school/sports/work: Yes HPI HPI Comments History of Present Illness Details 48 y/o male patient who presents to walk in clinic with c/o sinus pressure and congestion and headaches. His family at home with similar symptoms. Denies fevers, chills, nausea or vomiting. PFSH Medical History Diverticulosis Tubular adenoma HTN (hypertension) Dyslipidemia Diabetes Surgical History History of surgery History of esophagogastroduodenoscopy (EGD) Hx of colonoscopy History of hip replacement, total Hx of cholecystectomy Family History Father Substance use disorder Mother No problems noted. Brother No problems noted. Sister No problems noted. Son No problems noted. Son No problems noted. Social History Housing: House Alcohol intake: current Alcohol intake frequency: 3 or more drinks per day Alcohol type: beer Patient Tobacco Use Status: Current everyday Tobacco user Tobacco use type: Cigarette Cigarette Packs Per Day: 0.75 Cigarettes Per Day: 15 Years Smoked: 32years e-Cigarette/Vaping Use: Never Used Second Hand Smoke Exposure: Yes service: Yes Current occupational status: employed Current occupation: [employer] Current occupational exposures/hazards: Yes Cognitive needs: No Hearing needs: No Vision needs: No Review of Systems Const All systems reviewed & are unremarkable except as noted in HPI and below Physical Exam Vital Signs: Last Vital Signs Temp 98.4 F 12/31/23 15:38 Pulse 70 12/31/23 15:38 BP 144/80 H 12/31/23 15:38 Pulse Ox 98 12/31/23 15:38 Oxygen Delivery Method Room Air 12/31/23 15:38 BMI result Body Mass Index 34.7 Const General: comfortable and no acute distress HEENT Head: Yes normocephalic Ears: external ears normal and TM's normal bilaterally General nose exam: Abnormal mucous membranes and turbinates present boggy and erythematous Face and sinus: Yes sinus tenderness Mouth: moist mucous membranes and Abnormal oral and palatal mucosa present Throat: Yes posterior oropharynx normal and Yes uvula midline Eyes Pupils: Equal, round and reactive pupils present Resp Effort & Inspection: normal respiratory effort, able to speak in complete sentences and Actively coughing Auscultation: no crackles, no rales, no rhonchi and wheezes expiratory wheezes, left lower and left upper Cardio Rate: regular rate Rhythm: regular rhythm Neuro Cranial nerves: Yes Equal, round and reactive pupils present Assessment & Plan Assessment & Plan (1) Acute rhinosinusitis: Code(s): J01.90 - Acute sinusitis, unspecified Plan: - OTC remedies - Acetaminophen for pain relief - Rest - Warm fluids - Take medicine as directed. (2) Wheezing on auscultation: Code(s): R06.2 - Wheezing Plan: - OTC remedies - Acetaminophen for pain relief - Rest - Warm fluids - Take medicine as directed. Plan - OTC remedies - Acetaminophen for pain relief - Rest - Warm fluids - Take medicine as directed. Orders: Orders SARS-CoV2/FLU/RSV Today J01.90 - Acute sinusitis, unspecified, R06.2 - Wheezing Medications: New azithromycin 500 mg PO DAILY 5 days 5 tabs 0RF J01.90 - Acute sinusitis, unspecified prednisone 50 mg PO DAILY 5 days 5 tabs 0RF R06.2 - Wheezing albuterol sulfate 90 mcg/actuation 2 puffs inhalation Q4-6H PRN 6.7 grams 0RF shortness of breath or wheezing R06.2 - Wheezing Coding Level of Care Code Est Pt Level 3 (69354) Diagnoses Acute rhinosinusitis J01.90 Wheezing on auscultation R06.2 Time Spent (min) 15
== END 2023-12-31 16:09 | disposition home or self-care (01) ==
PROVIDERS: PCP Nurse Practitioner Family; Visit Provider Nurse Practitioner Family
DX: J01.90 Acute sinusitis, unspecified (principal); R06.2 Wheezing
CPT/HCPCS: 99213

== ENCOUNTER 2023-12-31 15:55 | Outpatient (REF) | payer BC, SELFPAY ==
[2024-01-01 14:31] LABS: Influenza A PCR NEGATIVE (Negative); Influenza B PCR NEGATIVE (Negative); Resp Syncy Virus RNA Qual PCR NEGATIVE (Negative); SARS COV2 PCR INHOUSE NEGATIVE (Negative)
== END 2023-12-31 15:56 | disposition home or self-care (01) ==
LOC: HO.LAB 15:55
PROVIDERS: Visit Provider Nurse Practitioner Family
DX: Z11.52 Encounter for screening for COVID-19 (principal); Z20.822 Contact with and (suspected) exposure to COVID-19; J01.90 Acute sinusitis, unspecified; R06.2 Wheezing
CPT/HCPCS: 0241U

== ENCOUNTER 2024-01-20 15:58 | Outpatient (AMB) | payer BC, SELFPAY ==
[2024-01-20 16:01] VITALS: BP 144/80; PULSE 72; O2SAT 96; BMI 34.9
--- NOTE | 2024-01-20 16:01 | MHC.PC.OV ---
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 Allergies amoxicillin [AMOXICILLIN] Allergy (Mild, Verified 01/20/24 17:33) HIVES Eyokfha-FAY-KwD Reductase Inhibitor Allergy (Mild, Verified 01/20/24 17:33) severe leg cramps Medication List - Last Reconciled 01/20/24 by TIMA Clayton-CARTER albuterol sulfate 90 mcg/actuation 2 puffs inhalation Q4-6H PRN blood sugar diagnostic As directed blood sugar diagnostic (FreeStyle Lite Strips) check glucose twice a day blood-glucose meter (FreeStyle Lite Meter kit) check glucose twice a day cholecalciferol (vitamin D3) 50 mcg PO DAILY 90 days colchicine 0.6 mg PO DAILY diltiazem HCl ER 60 mg PO BID ezetimibe 10 mg PO DAILY 90 days lancets (FreeStyle Lancets) check glucose twice a day lisinopril 20 mg PO DAILY metformin 500 mg PO DAILY 90 days Tobacco use date assessed: 01/20/24 Dental Screening Dental Screen Date: 01/20/24 Did you have a dental visit in the last 12 months?: Yes Did you have a dental problem in the last 6 months where you did not have access to dental care?: No Was dental information given to patient?: Patient has dentist HPI Annual PE HPI Details Pt is here for a PE. Will order labs. Colon screen is up to date. Pt is a diabetic, on an IRVIN. A1C in office today is 5.5. Microalbumin is up to date. Denies polyuria, polydipsia, and neuropathy. Pt denies any signs and symptoms of hypoglycemia and does know how to correct it. Will stop metformin. Pt is a smoker, encouraged to quit. [facility] Medical History Diverticulosis Tubular adenoma HTN (hypertension) Dyslipidemia Diabetes Surgical History History of surgery History of esophagogastroduodenoscopy (EGD) Hx of colonoscopy History of hip replacement, total Hx of cholecystectomy Family History Father Substance use disorder Mother No problems noted. Brother No problems noted. Sister No problems noted. Son No problems noted. Son No problems noted. Social History Housing: House Alcohol intake: current Alcohol intake frequency: 3 or more drinks per day Alcohol type: beer Patient Tobacco Use Status: Current everyday Tobacco user Tobacco use type: Cigarette Cigarette Packs Per Day: 0.75 Cigarettes Per Day: 15 Years Smoked: 32years e-Cigarette/Vaping Use: Never Used Second Hand Smoke Exposure: Yes service: Yes Current occupational status: employed Current occupation: [employer] Current occupational exposures/hazards: Yes Cognitive needs: No Hearing needs: No Vision needs: No Questionnaire PHQ-9 Over the last 2 weeks, how often have you been bothered by any of the following problems? 1. Little interest or pleasure in doing things: not at all 2. Feeling down, depressed, or hopeless: not at all 3. Trouble falling or staying asleep, or sleeping too much: not at all 4. Feeling tired or having little energy: not at all 5. Poor appetite or overeating: not at all 6. Feeling bad about yourself - or that you are a failure or have let yourself or your family down: not at all 7. Trouble concentrating on things, such as reading the newspaper or watching television: not at all 8. Moving or speaking so slowly that other people could have noticed. Or the opposite - being so fidgety or restless that you have been moving around a lot more than usual: not at all 9. Thoughts that you would be better off or of hurting yourself in some way: not at all Total score: 0 Depression Screening Interpretation: Negative Depression Screening Done: Yes 64662 - PHQ-9 Billing: Yes Source: Developed by Drs. Man Cormier, Chanelle Gutierrez, Silvio Price and colleagues, with an educational genie from [employer]. Thrive Questionnaire Date Thrive assessed: 01/20/24 I am a: Patient What is your living situation today?: I have a steady place to live Within the past 12 months, did the food you bought not last and you didn't have the money to get more?: Never true Within the past 12 months, did you worry whether your food would run out before you got money to buy more?: Never true Do you have trouble paying for medicines?: No Do you have trouble getting transportation to medical appointments?: No Do you have trouble paying your heating and electricity bill?: No Do you have trouble taking care of your child, family member or friend?: No Do you have trouble with day-to-day activities such as bathing, preparing meals, shopping, managing finances, etc.?: No Are you currently unemployed and looking for a job?: No Are you interested in more education?: No Please select the resources that you would like help with: None Currently or been in a relationship where the following occur: no concerns reported THRIVE Score: 0 AUDIT C Alcohol Use Questionnaire (AUDIT-C) 1. How often do you have a drink containing alcohol?: 4 or more times a week 2. How many drinks containing alcohol do you have on a typical day when you are drinking?: 5 or 6 3. How often do you have six or more drinks on one occasion?: Weekly Total Score: 9 Score Reviewed/Action Taken: Yes MARY-7 AMB Questionnaire MARY-7 Date MARY - 7 assessed: 01/20/24 Feeling nervous, anxious, or on edge: 0 = Not at all Not being able to stop or control worryin = Not at all Worrying too much about different things: 0 = Not at all Trouble relaxin = Not at all Being so restless that it is hard to sit still: 0 = Not at all Becoming easily annoyed or irritable: 0 = Not at all Feeling afraid as if something awful might happen: 0 = Not at all Total MARY-7 score (0-4 normal; 5-9 mild; 10-14 moderate; 15-21 severe): 0 Source: Developed by Drs. Man Cormier, Chanelle Gutierrez, Silvio Price and colleagues, with an educational genie from [employer] MARY-7 Assessment Billing MARY-7 Assessment Tool: MARY-7 Assessment 82691 Review of Systems Const Denies chills and Denies fever(s) Eyes Denies blurry vision ENT Denies vertigo, Denies dizziness and Denies sore throat Card Denies chest pain at rest, Denies chest pain with activity, Denies diaphoresis, Denies dyspnea and Denies dyspnea on exertion Resp Denies cough, Denies dyspnea, Denies dyspnea on exertion and Denies wheezing GI Denies abdominal pain, Denies melena, Denies hematochezia, Denies constipation, Denies diarrhea and Denies loose stools Denies hematuria Musc Denies numbness and Denies tingling Skin/Breast Denies lesions Neuro Denies vertigo, Denies dizziness, Denies numbness and Denies tingling Psych Denies anxiety, Denies depression, Denies homicidal ideation, Denies suicidal ideation and Denies other (substance abuse) Aller/Immun Denies wheezing Physical exam (Primary Care) Vital Signs: Last Vital Signs Pulse 72 01/20/24 16:01 BP 132/86 01/20/24 16:52 Pulse Ox 96 01/20/24 16:01 BMI result Body Mass Index 34.9 Tobacco/Smoking Status: Tobacco use Status Tobacco use date assessed 01/20/24 01/20/24 16:08 Patient Tobacco Use Status Current everyday Tobacco 01/20/24 16:08 Tobacco use type Cigarette 01/20/24 16:08 e-Cigarette/Vaping Use Never Used 01/20/24 16:08 PHQ-9: PHQ-9 Score PHQ-9: Total score 0 01/20/24 16:52 Depression Screening Interpretation: Negative Thrive Assessment: Date of Thrive Assessment Date Thrive assessed 01/20/24 01/20/24 16:08 Currently or been in a relationship where the following occur: no concerns reported Const General: cooperative Nutritional Appearance: well nourished Orientation/consciousness: patient oriented x3 HENMT Head: Yes normal to inspection, Yes normocephalic and Yes atraumatic Ears: TM's normal bilaterally Eyes General: appearance normal, both eyes and all related structures Alignment and Position: alignment normal and position normal Neck Neck: Yes normal visual inspection and Yes no lymphadenopathy Thyroid: Thyroid normal Resp Effort & Inspection: normal respiratory effort Auscultation: clear to auscultation bilaterally Cardio Rate: regular rate Rhythm: regular rhythm Heart sounds: S1 normal heart sound present, S2 normal heart sound present and no murmurs GI Palpation (GI): Soft to palpation and nontender Auscultation: normal bowel sounds Male General Exam: Yes normal external exam Penis: normal penis Scrotum: scrotum normal, testes descended bilaterally and no inguinal hernias Testes: no testicular mass Skin Rashes: no rashes Neuro General: patient oriented x3, moves all extremities, no focal motor deficits and deep tendon reflexes 2+ bilaterally Romberg Test: Negative Extrem Other: refused foot exam Psych Appearance: grossly normal Mental Status: mental status grossly normal Speech and movement: Normal speech and movement present Affect: normal affect Attitude: cooperative Thought process: Normal thought process present Thought content: Normal thought content present Insight: Good insight present (Psych) Judgement: Good judgement present (Psych) Results AMB Hemoglobin A1c AMB Hemoglobin A1c 5.5 % Last Edit by Yasmin Rahman CMA on 01/20/24 16:17 Results Reviewed Results Reviewed: Laboratory Last Values Hgb A1c (Clinic) 5.5 % (4.0-6.0) 01/20/24 16:00 Assessment and Plan Assessment & Plan (1) Diabetes: Code(s): E11.9 - Type 2 diabetes mellitus without complications Plan: fairly well controlled (2) Physical exam: Code(s): Z00.00 - Encounter for general adult medical examination without abnormal findings Plan: labs (3) Screening-pulmonary TB: Code(s): Z11.1 - Encounter for screening for respiratory tuberculosis (4) Smoker: Code(s): F17.200 - Nicotine dependence, unspecified, uncomplicated Plan: encouraged to quit Plan The patient agreed to the use of a medical education specialist for this encounter. Scribed for TIMA Goodman-BC by Macey Vega medical education specialist, on 01/20/2024 at 16:35 EST. Orders: Orders Comprehensive [place]. Panel Fast Today E11.9 - Type 2 diabetes mellitus without complications, Z00.00 - Encounter for general adult medical examination without abnormal findings UA CC w/rflx Micro + Cult Today E11.9 - Type 2 diabetes mellitus without complications, Z00.00 - Encounter for general adult medical examination without abnormal findings Lipid Panel Today E11.9 - Type 2 diabetes mellitus without complications, Z00.00 - Encounter for general adult medical examination without abnormal findings T Spot TB Today Z11.1 - Encounter for screening for respiratory tuberculosis AMB Hemoglobin A1c Today E11.9 - Type 2 diabetes mellitus without complications Complete Blood Count Auto Diff Today E11.9 - Type 2 diabetes mellitus without complications, Z00.00 - Encounter for general adult medical examination without abnormal findings TSH reflex Free T4 Today E11.9 - Type 2 diabetes mellitus without complications, Z00.00 - Encounter for general adult medical examination without abnormal findings Microalbumin, Random (w Creat) Today E11.9 - Type 2 diabetes mellitus without complications, Z00.00 - Encounter for general adult medical examination without abnormal findings Medications: Discontinued metformin Discontinued Reason: Duplicate 500 mg PO DAILY 90 days 90 tabs 1RF Coding Level of Care Code Est Pt Prev Care 40-64y(26518) Diagnoses Diabetes E11.9 Physical exam Z00.00 Screening-pulmonary TB Z11.1 Smoker F17.200 Additional Codes MARY-7 Assessment Billing - MARY-7 Assessment Tool: MARY-7 Assessment 17396 ([id number])
[2024-01-20 16:52] VITALS: BP 132/86
== END 2024-01-20 17:01 | disposition home or self-care (01) ==
PROVIDERS: Visit Provider Nurse Practitioner Family
DX: Z00.00 Encounter for general adult medical examination without abnormal findings (principal); E11.9 Type 2 diabetes mellitus without complications; Z11.1 Encounter for screening for respiratory tuberculosis; F17.210 Nicotine dependence, cigarettes, uncomplicated
CPT/HCPCS: 83036; 99396

== ENCOUNTER 2024-02-09 06:02 | Outpatient (REF) | payer BC, SELFPAY ==
[2024-02-09 10:20] LABS: MANUAL DIFF FLAG NO
[2024-02-09 10:28] LABS: Appearance Urine Clear; Color Urine Yellow; Glucose Urine UA Negative (Negative); Leukocyte Esterase Urine Negative (Negative); Nitrite Urine Negative (Negative); PH 5.5 (5.0-9.0); Specific Gravity - Urine 1.015 (1.005-1.025); Urine Blood Negative (Negative); Urine Ketones Negative (Negative); Urine Protein Negative (Neg-Trace)
[2024-02-09 10:37] LABS: Basophils Absolute Auto 0.1 X10*3/uL (0.0-0.2); Basophils Percent Auto 0.9 % (0-2); Eosinophils Absolute Auto 0.2 X10*3/uL (0.0-0.4); Hematocrit 46.2 % (42.0-52.0); Hemoglobin 16.7 g/dl (14.0-18.0); Imm Gran Abs Auto 0.06 X10*3/uL (0.00-0.03); Imm Gran Pct Auto 0.7 % (0.0-0.4); Lymphocytes Absolute Auto 2.8 X10*3/uL (1.2-4.9); Lymphocytes Percent Auto 30.8 % (20-40); Mean Corpuscular HGB Conc 36.1 g/dl (31.0-36.0); Mean Corpuscular Hemoglobin 33.1 pg (27.0-33.0); Mean Corpuscular Volume 91.5 fL (80.0-98.0); Mean Platelet Volume 10.7 fL (9.4-12.4); Monocytes Absolute Auto 0.6 X10*3/uL (0.1-1.2); Monocytes Percent Auto 7.2 % (2-11); Neutrophils Absolute Auto 5.2 x10*3/uL (2.0-8.3); Neutrophils Percent Auto 58.4 % (45-73); Platelet Count 208 X10*3/uL (160-400); Red Blood Count 5.05 X10*6/uL (4.60-5.80); Red Cell Distribution Width 12.1 % (11.0-16.0); White Blood Count 8.9 X10*3/uL (4.8-10.8)
[2024-02-09 11:25] LABS: Alanine Aminotransferase 26 U/L (0-40); Albumin Level 4.2 g/dL (3.5-5.0); Alkaline Phosphatase 55 U/L (39-117); Anion Gap 14 (12-20); Aspartate Amino Transferase 24 U/L (5-37); Bilirubin Total 0.7 mg/dL (0.0-1.0); Blood Urea Nitrogen 9 mg/dL (9-16); Calcium 9.4 mg/dL (8.4-10.2); Carbon Dioxide 25 mmol/L (22-29); Chloride 104 mmol/L (96-108); Cholesterol 139 mg/dL (<200); Estimated Glomerular Filt Rate > 60; Glucose Fasting 102 mg/dL (60-99); HDL Cholesterol 38 mg/dL (>40); LDL Cholesterol Calculated 82 mg/dL (<100); Potassium 3.8 mmol/L (3.3-5.1); Sodium 139 mmol/L (135-145); TSH reflex Free T4 2.53 uIU/mL (0.32-4.0); Triglycerides 97 mg/dL (<150)
[2024-02-09 11:47] LABS: Creatinine Urine 96.72 mg/dL; Microalbum/Creatinine Ratio Ur 7.2 ug/mg cr (<30)
[2024-02-11 21:59] LABS: TS Negative Control Passed; TS Panel A 0; TS Panel B 0; TS Positive Control Passed; TSpotTB Negative (Negative)
== END 2024-02-09 06:03 | disposition home or self-care (01) ==
LOC: HO.HMGCLDS 06:02
PROVIDERS: PCP Nurse Practitioner Family; Visit Provider Nurse Practitioner Family
DX: Z00.00 Encounter for general adult medical examination without abnormal findings (principal); Z11.1 Encounter for screening for respiratory tuberculosis; E11.9 Type 2 diabetes mellitus without complications
CPT/HCPCS: 36415; 80053; 80061; 81003; 82043; 82570; 84443; 85025; 86481

== ENCOUNTER 2024-09-13 12:40 | Outpatient (AMB) | payer BC, SELFPAY ==
--- NOTE | 2024-09-13 12:45 | MHC.PC.OV ---
Vital Signs 09/13/24 12:46 Height 5 ft 11 in Weight 247 lb BMI 34.4 BP 130/78 Blood Pressure Location Lt brachial Position Sitting Pulse 74 Pulse Source Pulse Oximeter Pulse Oximetry (%) 97 Oxygen Delivery Method Room Air Intake Visit Reasons: f/u Intake Note: Pt is here today for a follow up visit to have paper work fill out. Allergies amoxicillin [AMOXICILLIN] Allergy (Mild, Verified 09/13/24 17:18) HIVES Rjtvzsd-APQ-IzB Reductase Inhibitor Allergy (Mild, Verified 09/13/24 17:18) severe leg cramps Medication List - Last Reconciled 09/13/24 by SYLWIA Clayton albuterol sulfate 90 mcg/actuation 2 puffs inhalation Q4-6H PRN blood sugar diagnostic As directed blood sugar diagnostic (FreeStyle Lite Strips) check glucose twice a day blood-glucose meter (FreeStyle Lite Meter kit) check glucose twice a day cholecalciferol (vitamin D3) 50 mcg PO DAILY 90 days colchicine 0.6 mg PO DAILY diltiazem HCl ER 60 mg PO BID ezetimibe 10 mg PO DAILY 90 days lancets (FreeStyle Lancets) check glucose twice a day lisinopril 20 mg PO DAILY Tobacco use date assessed: 09/13/24 Dental Screening Dental Screen Date: 01/20/24 HPI f/u HPI Details Pt had a right total hip replacement in 2019. A lot of pt's symptoms stem from his service from [id number]. Pt's orthopedic provider has agreed with this. 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 Again, this most likely did contribute to his severe osteoarthritis of the right hip (found in April of 2018) as well as his back injuries. Will write pt a note regarding his right total hip replacement and service. [facility] Medical History Diverticulosis Tubular adenoma HTN (hypertension) Dyslipidemia Diabetes Surgical History History of surgery History of esophagogastroduodenoscopy (EGD) Hx of colonoscopy History of hip replacement, total Hx of cholecystectomy Family History Father Substance use disorder Mother No problems noted. Brother No problems noted. Sister No problems noted. Son No problems noted. Son No problems noted. Social History Housing: House Alcohol intake: current Alcohol intake frequency: 3 or more drinks per day Alcohol type: beer Patient Tobacco Use Status: Current everyday Tobacco user Tobacco use type: Cigarette Cigarette Packs Per Day: 0.75 Cigarettes Per Day: 15 Years Smoked: 32years Packs Per Year: 0 Packs per year/per ci.00 e-Cigarette/Vaping Use: Never Used Second Hand Smoke Exposure: Yes service: Yes Current occupational status: employed Current occupation: [employer] Current occupational exposures/hazards: Yes Cognitive needs: No Hearing needs: No Vision needs: No Questionnaire PHQ-9 Over the last 2 weeks, how often have you been bothered by any of the following problems? 1. Little interest or pleasure in doing things: not at all 2. Feeling down, depressed, or hopeless: not at all 3. Trouble falling or staying asleep, or sleeping too much: not at all 4. Feeling tired or having little energy: not at all 5. Poor appetite or overeating: not at all 6. Feeling bad about yourself - or that you are a failure or have let yourself or your family down: not at all 7. Trouble concentrating on things, such as reading the newspaper or watching television: not at all 8. Moving or speaking so slowly that other people could have noticed. Or the opposite - being so fidgety or restless that you have been moving around a lot more than usual: not at all 9. Thoughts that you would be better off or of hurting yourself in some way: not at all Total score: 0 Depression Screening Interpretation: Negative Depression Screening Done: Yes 11850 - PHQ-9 Billing: Yes Source: Developed by Drs. Man Cormeir, Chanelle Gutierrez, Silvio Price and colleagues, with an educational genie from [employer]. Thrive Questionnaire Date Thrive assessed: 07/19/24 Within the past 12 months, did the food you bought not last and you didn't have the money to get more?: Never true Within the past 12 months, did you worry whether your food would run out before you got money to buy more?: Often true Do you have trouble paying for medicines?: No Do you have trouble getting transportation to medical appointments?: No Do you have trouble paying your heating and electricity bill?: No Do you have trouble taking care of your child, family member or friend?: No Do you have trouble with day-to-day activities such as bathing, preparing meals, shopping, managing finances, etc.?: No Are you currently unemployed and looking for a job?: No Are you interested in more education?: No Please select the resources that you would like help with: None Currently or been in a relationship where the following occur: No concerns reported THRIVE Score: 1 AUDIT C Alcohol Use Questionnaire (AUDIT-C) 3. How often do you have six or more drinks on one occasion?: Weekly Total Score: 3 Score Reviewed/Action Taken: Yes MARY-7 AMB Questionnaire MARY-7 Date MARY - 7 assessed: 09/13/24 Source: Developed by Drs. Man Cormier, Chanelle Gutierrez, Silvio Price and colleagues, with an educational genie from [employer]. Review of Systems Const Reports as per HPI Physical exam (Primary Care) Vital Signs: Last Vital Signs Pulse 74 09/13/24 12:46 BP 130/78 09/13/24 12:46 Pulse Ox 97 09/13/24 12:46 Oxygen Delivery Method Room Air 09/13/24 12:46 BMI result Body Mass Index 34.4 Tobacco/Smoking Status: Tobacco use Status Tobacco use date assessed 09/13/24 09/13/24 12:51 Patient Tobacco Use Status Current everyday Tobacco 09/13/24 12:51 Tobacco use type Cigarette 09/13/24 12:51 e-Cigarette/Vaping Use Never Used 09/13/24 12:51 PHQ-9: PHQ-9 Score PHQ-9: Total score 0 09/13/24 13:38 Depression Screening Interpretation: Negative Thrive Assessment: Date of Thrive Assessment Date Thrive assessed 07/19/24 09/13/24 12:51 Currently or been in a relationship where the following occur: No concerns reported Const General: cooperative Nutritional Appearance: obese Orientation/consciousness: patient oriented x3 Resp Effort & Inspection: normal respiratory effort Auscultation: clear to auscultation bilaterally Cardio Rate: regular rate Rhythm: regular rhythm Heart sounds: S1 normal heart sound present, S2 normal heart sound present and no murmurs Neuro General: patient oriented x3 Psych Appearance: grossly normal Mental Status: mental status grossly normal Speech and movement: Normal speech and movement present Affect: normal affect Attitude: cooperative Thought process: Normal thought process present Thought content: Normal thought content present Insight: Good insight present (Psych) Judgement: Good judgement present (Psych) Coding Level of Care Code Est Pt Level 3 (58572) Diagnoses Osteoarthritis M19.90 Additional Codes PHQ-9 - 15263 - PHQ-9 Billing: Yes ([id number]) Assessment & Plan Assessment & Plan (1) Osteoarthritis: Code(s): M19.90 - Unspecified osteoarthritis, unspecified site Category: Medical Plan: seeing ortho at [facility] Plan The patient agreed to the use of a administrative medical director for this encounter. Scribed for SYLWIA Goodman by Macey Vega administrative medical director, on 09/13/2024 at 13:00 EST.
[2024-09-13 12:46] VITALS: BP 130/78; PULSE 74; O2SAT 97; BMI 34.4
== END 2024-09-13 16:11 | disposition home or self-care (01) ==
PROVIDERS: PCP Nurse Practitioner Family; Visit Provider Nurse Practitioner Family
DX: M19.90 Unspecified osteoarthritis, unspecified site (principal)

== ENCOUNTER → 2024-09-13 12:40 | Outpatient (BNVA) | payer BC, SELFPAY | PROVIDERS: PCP Nurse Practitioner Family; Visit Provider Nurse Practitioner Family | DX: M19.90 Unspecified osteoarthritis, unspecified site (principal) | CPT/HCPCS: 96127 ==

== ENCOUNTER 2025-02-28 14:52 | Outpatient (AMB) | payer BC, SELFPAY ==
--- NOTE | 2025-02-28 14:56 | MHC.PC.OV ---
Vital Signs 02/28/25 14:57 Height 5 ft 11 in Weight 250 lb BMI 34.9 BP 132/80 Blood Pressure Location Lt brachial Position Sitting Pulse 72 Pulse Source Pulse Oximeter Pulse Oximetry (%) 98 Intake Visit Reasons: Annual PE- NEEDS A1C Accompanied by: Self / Same As Patient Allergies amoxicillin [AMOXICILLIN] Allergy (Mild, Verified 02/28/25 14:58) HIVES [id number] Reductase Inhibitor Allergy (Mild, Verified 02/28/25 14:58) severe leg cramps Medication List - Last Reconciled 02/28/25 by William Forbes [facility]- albuterol sulfate 90 mcg/actuation 2 puffs inhalation Q4-6H PRN blood sugar diagnostic As directed blood sugar diagnostic (FreeStyle Lite Strips) check glucose twice a day blood-glucose meter (FreeStyle Lite Meter kit) check glucose twice a day cholecalciferol (vitamin D3) 50 mcg PO DAILY 90 days colchicine 0.6 mg PO DAILY diltiazem HCl ER 60 mg PO BID ezetimibe 10 mg PO DAILY 90 days lancets (FreeStyle Lancets) check glucose twice a day lisinopril 20 mg PO DAILY Tobacco use date assessed: 02/28/25 Dental Screening Dental Screen Date: 02/28/25 Did you have a dental visit in the last 12 months?: Yes Did you have a dental problem in the last 6 months where you did not have access to dental care?: No Was dental information given to patient?: Patient has dentist HPI Annual PE- NEEDS A1C HPI Details History of Present Illness The patient is a 49-year-old male presenting for a physical examination and review of chronic health conditions, including Diabetes Mellitus and 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 He denies chest pain or shortness of breath but reports occasional use of albuterol for relief. He is frequently exposed to smoke and heavy metals at work, leading to plans for heavy metal screening. His Diabetes Mellitus appears well-managed with an A1c of 6.0 through diet. He denies symptoms of neuropathy and has an up-to-date eye examination. Erectile dysfunction is noted without associated urinary or gastrointestinal symptoms. Smoking history and UV exposure due to occupational outdoor work were discussed, and the importance of smoking cessation and sun protection were emphasized. Colonoscopy is due in the upcoming fall. Needs a referral back to urology for condyloma. 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 - Encouragement of laboratory evaluations soon to review health status. - Colon cancer screening deferred to the fall. - Discussed tobacco cessation and associated risks. - Plans to see a field marketing team leader to assess skin health. - Emphasized the importance of sunscreen as part of sun protection. 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 - Substance Use: Currently smokes; risks of smoking discussed. - Lifestyle: Works outside on some days with potential UV exposure. Review of Systems - Respiratory: Denies chest pain or shortness of breath. Reports relief with albuterol when needed. - Neurological: Denies neuropathy. - Gastrointestinal: Denies blood in stool, constipation, diarrhea. - Genitourinary: Denies urinary issues. - Constitutional: Denies fevers, chills. - Reports erectile dysfunction. Physical Exam General: Cooperative, healthy appearing, comfortable, no acute distress and well developed, obese Orientation: Patient oriented x3 Limitations: No limitations Head: Normal to inspection Ears: Hearing grossly normal bilaterally Nose: Normal external nose present Face and sinus: Normal facial exam Eyes: Appearance normal, both eyes and all related structures Neck: Normal visual inspection and Yes full ROM Respiratory: Normal respiratory effort and able to speak in complete sentences. Clear to auscultation bilaterally Cardiovascular: Regular rate and rhythm. Normal S1 and S2 GI: Normal to inspection. Soft to palpation and nontender gu: condyloma lesion noted to distal left shaft Skin: No rashes or lesions noted Neuro: Patient oriented x3 Extremities: Normal to inspection Results - Labs: Hemoglobin A1c at 6.0. Plan 1. 0. I have discussed the need for further lab evaluations shortly, including a testosterone level for reported erectile dysfunction. We are organizing a colonoscopy for the fall. Due to occupational exposure, I recommended heavy metal screening. Smoking cessation was outlined as a mathur focus, and I encouraged dermatological consultation for UV exposure risks related to his welding work.: Discussion Notes During the visit, I informed the patient about the importance of maintaining his current diabetes management regimen, considering his Hemoglobin A1c level is in good control at 6.0. We reviewed the necessity of regular laboratory investigations to monitor his health, including metals screening due to his occupation as a welder fabricator, which includes exposure to potential occupational hazards. I also advised the patient about the risks of smoking and the benefits of cessation, emphasizing that it could improve overall health including erectile dysfunction symptoms. A referral to dermatology for skin assessments was also discussed due to his occupational sun exposure. The patient was encouraged to undergo a colonoscopy in the forthcoming fall. Patient Instructions - Follow a balanced diet to maintain blood sugar levels. - Schedule laboratory evaluations to verify health status soon. - Plan for a colonoscopy in the fall. - Consider smoking cessation options. - Use sunscreen regularly to protect against UV rays. - Attend a field marketing team leader appointment as a safety measure. - Monitor any changes in health status and seek medical assistance if symptoms arise. [facility] Medical History Diverticulosis Tubular adenoma HTN (hypertension) Dyslipidemia Diabetes Surgical History History of surgery History of esophagogastroduodenoscopy (EGD) Hx of colonoscopy History of hip replacement, total Hx of cholecystectomy Family History Father Substance use disorder Mother No problems noted. Brother No problems noted. Sister No problems noted. Son No problems noted. Son No problems noted. Social History Housing: House Alcohol intake: current Alcohol intake frequency: 3 or more drinks per day Alcohol type: beer Patient Tobacco Use Status: Current everyday Tobacco user Tobacco use type: Cigarette Cigarette Packs Per Day: 0.75 Cigarettes Per Day: 15 Years Smoked: 32years e-Cigarette/Vaping Use: Never Used Second Hand Smoke Exposure: Yes service: Yes Current occupational status: employed Current occupation: [employer] Current occupational exposures/hazards: Yes Cognitive needs: No Hearing needs: No Vision needs: No Questionnaire PHQ-9 Over the last 2 weeks, how often have you been bothered by any of the following problems? 1. Little interest or pleasure in doing things: not at all 2. Feeling down, depressed, or hopeless: not at all 3. Trouble falling or staying asleep, or sleeping too much: not at all 4. Feeling tired or having little energy: not at all 5. Poor appetite or overeating: not at all 6. Feeling bad about yourself - or that you are a failure or have let yourself or your family down: not at all 7. Trouble concentrating on things, such as reading the newspaper or watching television: not at all 8. Moving or speaking so slowly that other people could have noticed. Or the opposite - being so fidgety or restless that you have been moving around a lot more than usual: not at all 9. Thoughts that you would be better off or of hurting yourself in some way: not at all Total score: 0 Depression Screening Interpretation: Negative Depression Screening Done: Yes 12597 - PHQ-9 Billing: Yes Source: Developed by Drs. Man Cormier, Chanelle Gutierrez, Silvio Price and colleagues, with an educational genie from [employer]. Thrive Questionnaire Date Thrive assessed: 02/28/25 I am a: Patient What is your living situation today?: I have a steady place to live Within the past 12 months, did the food you bought not last and you didn't have the money to get more?: Never true Within the past 12 months, did you worry whether your food would run out before you got money to buy more?: Never true Do you have trouble paying for medicines?: No Do you have trouble getting transportation to medical appointments?: No Do you have trouble paying your heating and electricity bill?: No Do you have trouble taking care of your child, family member or friend?: I choose not to answer this question Do you have trouble with day-to-day activities such as bathing, preparing meals, shopping, managing finances, etc.?: I choose not to answer this question Are you currently unemployed and looking for a job?: I choose not to answer this question Are you interested in more education?: I choose not to answer this question Please select the resources that you would like help with: None Currently or been in a relationship where the following occur: I choose not to answer THRIVE Score: 0 AUDIT C Alcohol Use Questionnaire (AUDIT-C) 1. How often do you have a drink containing alcohol?: 2-3 times a week 2. How many drinks containing alcohol do you have on a typical day when you are drinking?: 5 or 6 3. How often do you have six or more drinks on one occasion?: Daily or almost daily Total Score: 9 Score Reviewed/Action Taken: Yes MARY-7 AMB Questionnaire MARY-7 Date MARY - 7 assessed: 02/28/25 Feeling nervous, anxious, or on edge: 0 = Not at all Not being able to stop or control worryin = Not at all Worrying too much about different things: 0 = Not at all Trouble relaxin = Not at all Being so restless that it is hard to sit still: 0 = Not at all Becoming easily annoyed or irritable: 0 = Not at all Feeling afraid as if something awful might happen: 0 = Not at all Total MARY-7 score (0-4 normal; 5-9 mild; 10-14 moderate; 15-21 severe): 0 Source: Developed by Drs. Man Cormier, Chanelle Gutierrez, Silvio Price and colleagues, with an educational genie from [employer]. MARY-7 Assessment Billing MARY-7 Assessment Tool: MARY-7 Assessment 19986 Physical exam (Primary Care) Vital Signs: Last Vital Signs Pulse 72 02/28/25 14:57 BP 132/80 02/28/25 14:57 Pulse Ox 98 02/28/25 14:57 BMI result Body Mass Index 34.9 Tobacco/Smoking Status: Tobacco use Status Tobacco use date assessed 02/28/25 02/28/25 14:59 Patient Tobacco Use Status Current everyday Tobacco 02/28/25 14:59 Tobacco use type Cigarette 02/28/25 14:59 e-Cigarette/Vaping Use Never Used 02/28/25 14:59 PHQ-9: PHQ-9 Score PHQ-9: Total score 0 02/28/25 14:59 Depression Screening Interpretation: Negative Thrive Assessment: Date of Thrive Assessment Date Thrive assessed 02/28/25 02/28/25 14:59 Currently or been in a relationship where the following occur: I choose not to answer Results AMB Hemoglobin A1c AMB Hemoglobin A1c 6.0 % Last Edit by Flex Newberry CMA on 02/28/25 15:25 Results Reviewed Results Reviewed: Laboratory Last Values Hgb A1c (Clinic) 6.0 % (4.0-6.0) 02/28/25 15:24 Coding Level of Care Code Est Pt Prev Care 40-64y(89542) Diagnoses Diabetes E11.9 Physical exam Z00.00 Screening for prostate cancer Z12.5 Condyloma A63.0 Erectile dysfunction N52.9 Heavy metal exposure Z77.018 Screening for colon cancer Z12.11 Additional Codes MARY-7 Assessment Billing - MARY-7 Assessment Tool: MARY-7 Assessment 29381 ([id number]) PHQ-9 - 78508 - PHQ-9 Billing: Yes ([id number]) Assessment & Plan Assessment & Plan (1) Diabetes: Code(s): E11.9 - Type 2 diabetes mellitus without complications Category: Medical (2) Physical exam: Code(s): Z00.00 - Encounter for general adult medical examination without abnormal findings Category: Medical (3) Screening for prostate cancer: Code(s): Z12.5 - Encounter for screening for malignant neoplasm of prostate Category: Medical (4) Condyloma: Code(s): A63.0 - Anogenital (venereal) warts Category: Medical (5) Erectile dysfunction: Code(s): N52.9 - Male erectile dysfunction, unspecified Category: Medical (6) Heavy metal exposure: Code(s): Z77.018 - Contact with and (suspected) exposure to other hazardous metals Category: Medical (7) Screening for colon cancer: Code(s): Z12.11 - Encounter for screening for malignant neoplasm of colon Category: Medical Plan . Orders: Orders Comprehensive [place]. Panel Fast Today E11.9 - Type 2 diabetes mellitus without complications, Z00.00 - Encounter for general adult medical examination without abnormal findings Microalbumin, Random (w Creat) Today E11.9 - Type 2 diabetes mellitus without complications Prostate Specific Antigen Scr Today Z12.5 - Encounter for screening for malignant neoplasm of prostate Complete Blood Count Auto Diff Today E11.9 - Type 2 diabetes mellitus without complications, Z00.00 - Encounter for general adult medical examination without abnormal findings TSH reflex Free T4 Today E11.9 - Type 2 diabetes mellitus without complications, Z00.00 - Encounter for general adult medical examination without abnormal findings UA CC w/rflx Micro + Cult Today E11.9 - Type 2 diabetes mellitus without complications, Z00.00 - Encounter for general adult medical examination without abnormal findings Lipid Panel Today E11.9 - Type 2 diabetes mellitus without complications, Z00.00 - Encounter for general adult medical examination without abnormal findings AMB Hemoglobin A1c Today Z13.9 - Encounter for screening, unspecified Testosterone, Free/Total Today N52.9 - Male erectile dysfunction, unspecified Heavy Metals Screen Blood Today Z77.018 - Contact with and (suspected) exposure to other hazardous metals Referrals Urology Referral A63.0 - Anogenital (venereal) warts Gastroenterology Referral Z12.11 - Encounter for screening for malignant neoplasm of colon Medications: Refilled albuterol sulfate 90 mcg/actuation 2 puffs inhalation Q4-6H PRN 6.7 grams 0RF shortness of breath or wheezing R06.2 - Wheezing colchicine 0.6 mg PO DAILY 30 tabs 1RF for gout pain
[2025-02-28 14:57] VITALS: BP 132/80; PULSE 72; O2SAT 98; BMI 34.9
--- OUTSIDE RECORDS SUMMARY | 2025-02-28 18:08 | XMS_ITS | Continuity of Care Document ---
Author Name [facility] Organization [facility] Care Team Providers Care [employer] Installer Name Role Phone [facility] Unavailable Unavailable Allergies, Adverse Reactions, Alerts Combined list of allergies from Department of Defense and Veterans Affairs facilities. It does not include entries that were removed or entered in error. Substance Category Reaction Severity Reaction type Status Date Reported Comments Source AMOXICILLIN (AMOXICILLIN TRIHYDRATE) Drug allergy (disorder) Unknown active 01/19/2008 [facility] Social History Combined list of available smoking, tobacco, and other social history from Department of Defense and Veterans Affairs facilities. Social History Type Response Date Comment Sourc e This section is an empty social history section. [facility]
--- OUTSIDE RECORDS SUMMARY | 2025-02-28 18:08 | XMS_ITS | Data Portability ---
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 Plan of Treatment Reminders Order Date Submit Date Provider Last Modified By Organization Details Last Modified Time Details Appointments None recorded. Lab None recorded. Referral None recorded. Procedures None recorded. Surgeries None recorded. Imaging XR, knee, 3 view - R knee 3 view rm 116 2023 [email or web address] [facility], [address] [facility], [address], [place], [address], 4 09:33:46 MRI, knee, w/o contrast - Right knee mri w/o contrast ? MMT 2023 [email or web address] [facility] ([facility]), [address] [facility], [place], [address], 4 09:33:46 Medication Orders None recorded. Patient TargetsNo targets recorded. Patient InstructionsNo instructions recorded. Reason for Referral None Reported. Results Created Date Observation Date Name Description Value Unit Range Abnormal Flag Note LastModifiedBy Organization Detail LastModifiedTime 08/30/20 24 08/30/2024 XR, knee, 3 view [email or web address] ?Encry pted=s hAaTro YD8dLq bEUv6g %2BXZw aYqtaq 0bqfl% 2Fg9IQ a4ajBk vP9nXo QUaueC m3YtLR FvZlgJ JJ8mAn HZtai3 6f6243 AC0Kqa H6FWaa kKiQtr MwF INTERFACE [facility] [address], [place], [address], 08/30/2024 17:11:25 08/30/20 24 08/30/2024 XR, knee, 3 view [email or web address] ?Encry pted=s hAaTro YD8dLq bEUv6g %2BXZw aYqtaq 0bqfl% 2Fg9IQ a4ajBk vP9nXo QUaueC m3YtLR FvZlgJ JJ8mAn HZtai3 7k3212 AC0Kqa H6FWaa kKiQtr MwF INTERFACE [facility] [address], [place], [address], 08/30/2024 17:11:27 09/13/20 24 09/10/2024 MRI, knee, w/o contr ast [facility] Access ion Number : [id number] Patichristiano t Name: Jassi Argueta Medica l Record Number : [id number] Date of : 1974 Date of Exam: 2023 Referr ing Physic ric: [facility] ([facility] [address], [address] [place] [address] Exam: MR Knee (C-) CPT 77324 - Right Room Descri ption: [facility] Pion 3T MRI right knee Histor y: Pain Findin gs: Comple x tear involv ing the body and architect manager ior horn of the medial menisc us. The tear has horizo ntal and radial compon ents. A menisc al fragme nt is flippe d into the inferi or recess of the medial gutter on image 19 of series 6. Myxoid degene ration in the anteri or horn of the medial menisc us. Mild thinni ng and irregu larity within weight bearin g surfac e cartil age of the medial compar tment Mild myxoid degene ration of the latera l menisc us The ACL and PCL are intact The MCL is intact The LCL comple x includ ing the biceps femori s, poplit eus and fibula r collat eral ligame nts are intact The medial and latera l patell ar retina cula are intact Small medial patell ar plica. Thinni ng and irregu larity within latera l patell ar facet and patell ar apex cartil age. The extens or mechan ism is intact . Impres dany: Comple x tear involv ing the body and architect manager ior horn of the medial menisc us. Menisc al fragme nt is flippe d into the inferi or recess of the medial gutter on the image outlin ed above. Myxoid degene ration in the anteri or horn of the medial menisc us. Mild myxoid degene ration within the latera l menisc us. Medial and patell ofemor al compar tment chondr omalac ia is outlin ed above Electr onical ly Signed By: Jassi Gerardo MD dsaa [facility] ([facility]) [address], [place], [address], 10/06/2024 17:05:32 Result Notes None recorded. Problems Name Problem SNOMED Code Status Onset Date Resolution Date Notes Provider Name and Address Organization Details Recorded Time No complaint s 141342940 Active Status: 'I'; Not Available [facility] 4 09:21:11 Acute meniscal tear, medial 607688142 Active 2023 Chucho Wong PA-C [address], [facility] [place], [address] , [facility] - [facility] 4 12:26:20 Follow-up orthopedi c assessmen t 575279723 Active 2018 Problem Code: Z47.89; Problem Code Type: ICD-10; Status: 'A'; Not Available [facility] 4 11:42:50 Lumbosacr al radiculop athy 0367964 Active 2018 Problem Code: M54.16; Problem Code Type: ICD-10; Status: 'A'; Not Available [facility] 4 11:42:50 Degenerat ion of lumbar intervert ebral disc 05497259 Active 2018 Problem Code: M51.36; Problem Code Type: ICD-10; Status: 'A'; Not Available [facility], [facility]–1983 11:42:51 Radiculop athy due to lumbar intervert ebral disc disorder 119607006794 105 Active 2018 Problem Code: M51.16; Problem Code Type: ICD-10; Status: 'A'; Not Available [facility], [facility]–1983 11:42:51 Idiopathi c osteoarth ritis 137326967 Active 2018 Problem Code: M16.11; Problem Code Type: ICD-10; Status: 'A'; Not Available [facility], [facility]1983 11:42:51 Problem Notes None recorded. Procedures Surgical History None recorded. Imaging Results Imaging Date Name Status LastModified by Organiz ation Details LastModified Time 08/30/2024 XR, knee, 3 view completed INTERFACE [facility] [address] [place] [address], [address], 08/30/2024 17:11:25 08/30/2024 XR, knee, 3 view completed INTERFACE [facility] [address], [place], [address], 08/30/2024 17:11:27 09/10/2024 MRI, knee, w/o contrast completed dsalva [facility] ([facility]) [address], [place], [address], 10/06/2024 17:05:32 Procedure Notes None recorded. Medical Equipment None Reported. Allergies Allergen ID Allergen Name Allergen Category Reaction Reaction Severity Criticality Documentation Date Start Date Code Code System Note Provider Name and Address Organization Details Recorded Time 37435 amoxicill in trihydrat e medicatio n Not available Not available Not available 01/04/20242016 71272 8 RxNorm Not Available [facility], [facility]–1983 12:08:52 Medications Name Sig Start Date Stop Date Status Note LastModified by Organization Details LastModified Time metformin 500 mg tablet TAKE 1 TABLET BY MOUTH DAILY active Not Available Not Available No t Available lisinopril 20 mg tablet TAKE 1 TABLET BY MOUTH EVERY DAY active Not Available Not Available No t Available clindamycin HCl 150 mg capsule TAKE 4 CAPSULES BY MOUTH 1 HOUR PRIOR TO APPOINTME NT active Not Available Not Available No t Available prednisone 50 mg tablet TAKE 1 TABLET BY MOUTH EVERY DAY FOR 5 DAYS active Not Available Not Available No t Available diltiazem ER 60 mg capsule,ext ended release 12 hr TAKE 1 CAPSULE BY MOUTH TWICE A DAY active Not Available Not Available No t Available albuterol sulfate HFA 90 mcg/actuati on aerosol inhaler INHALE 2 PUFFS EVERY 4 TO 6 HOURS NEEDED FOR SHORTNESS OF BREATH OR FOR WHEEZE active Not Available Not Available No t Available colchicine 0.6 mg tablet TAKE 1 TAB (0.6 MG) ORALLY DAILY FOR FOR GOUT PAIN active Not Available Not Available No t Available naproxen 500 mg tablet TAKE 1 TABLET BY MOUTH TWICE A DAY active Not Available Not Available No t Available oxycodone 5 mg tablet TAKE 1-2 TABLETS BY MOUTH EVERY 6 HOURS NEEDED FOR 3 DAYS active Not Available Not Available No t Available azithromyci n 500 mg tablet TAKE 1 TABLET BY MOUTH ONCE DAILY FOR 5 DAYS active Not Available Not Available No t Available ezetimibe 10 mg tablet TAKE 1 TABLET BY MOUTH EVERY DAY FOR 90 DAYS active Not Available Not Available No t Available diltiazem HCl dilTIAZem HCl 30MG Tablet 2019 active Statu s: 'Curr ent'; Not Available Not Available Not Available Vitamin D3 50 mcg (2,000 unit) tablet TAKE 1 TABLET BY MOUTH EVERY DAY active Not Available Not Available No t Available oxycodone HCl-oxycodo ne-ASA oxyCODONE HCl 5MG Tablet 08/06 completed Statu s: 'Disc ontin ued'; Not Available Not Available Not Available Vitals Date Recorded Body height Body mass index (BMI) Body weight Provider Name and Address Organization Details Last Updated DateTime 08/30/2024 180.34 cm 34.3 kg/m2 364891.72 g DUONG NELSON [place] - [facility] 08/30/2024 16:59:39 Date Recorded Body height Body mass index (BMI) Body weight Provider Name and Address Organization Details Last Updated DateTime 09/20/2024 180.34 cm 34.3 kg/m2 929507.72 g Chucho Wong PA-C [address], [place], [address], [place] - [facility] 09/20/2024 14:45:35 Date Recorded Body height Body mass index (BMI) Body weight Body temperature Provider Name and Address Organization Details Last Updated DateTime 11/07/2024 180.34 cm 34.3 kg/m2 437942.72 g 98.1 [degF] Chucho Wong PA-C [address], [place], [address] , [place] - [facility] 11/07/2024 13:28:09 Social History None recorded. Functional Status None recorded. Mental Status None recorded. Family History Nothing Reported. Medical History Condition Response Diabetes Y Hypertension Y Asthma Y Cholesterol Y Past Encounters Encounter ID Performer Location Encounter Start Date Encounter Closed Date Diagnosis/Indication Diagnosis SNOMED-CT Code Diagnosis ICD10 Code Diagnosis Note [id number] Bola Diaz PA-C [facility] [address] [place] [address] 08/30/2024 16:52:29 09/23/2024 09:33:46 Pain of right knee region 2192444879 24445 M25.561 Tear of me dial meniscus of knee 302380349 S83.231A [id number] Chucho Wong PA-C [facility] [address] [place] [address] 09/20/2024 14:34:01 10/10/2024 09:19:35 Acute meniscal tear, medial 509014972 S83.231D [id number] Chucho Wong PA-C [facility] [address] [place] [address] 11/07/2024 13:15:21 11/22/2024 11:04:22 History of arthroscopy of knee joint 527822823 Z98.890 Health Concerns Section Related Observation LastModified by Organization Detai ls LastModified Time None Recorded Concern Status LastModified by Organization Details LastModified Time None Recorded Advance Directives Directive None Recorded Payers Encounter Date Sequence Insurance Name Policy Number Policy Soto Covered Member ID Soto Member ID Guarantor Name 08/30/2024 1 [place] [id number] Chucho Argueta [id number] Chucho Argueta 09/20/2024 1 [place] [id number] Chucho Grangerh [id number] Chucho Argueta 11/07/2024 1 [place] [id number] Chucho Grangerh [id number] Chucho Argueta Notes Date Note Type Note Provider Name and Address Organization Details Recorded Time 4 text/html I am seeing the patient today under the supervision of Dr. Suazo who was available but who did not see the patient.History: This pleasant gentleman presents today for new problem of right knee pain. Pain is located about the medial aspect of his knee. Does have multiple joint problems did have it total hip arthroplasty at 46 years old prior to this had a lumbar disc removed. Presents today with pain about the medial aspect of his knee. Pain is present with all activity specifically with twisting. He gets episodes of catching and locking. Has had no treatment for this as of yet other than rest, ice, Tylenol and anti-inflammatories.PMH/P SH/MEDS/ALL/FMH/SOC HX/ROS are reviewed in detail per my medical intake sheet.General Exam: Vital signs are as noted belowMental status: Alert and lucid. 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 No spasticity or clonus noted.Extremities:Calves are soft non tender, skin intact.Orthopedic Examination:Patient has a negative straight leg raise bilaterally.Right Hip: No tenderness to palpation full range of motion without referred pain to the kneeRight Knee: Tenderness to palpation medially. Markedly positive Melanie's test with recreation of symptoms that he feels when he gets catching and locking. No gross laxity. Minimal effusion. No erythema or warmth.Left Knee: No tenderness to palpation. No joint line tenderness. Negative Melanie's test. Full range of motion. Full muscle strength. No laxity.Antalgic gait pattern favoring the right side. Full strength and sensation distally.X-rays: Radiographs 4 views ordered obtained and reviewed today in the office of the right knee show decent preservation of joint space about the medial and lateral femoral compartments there is some slight spurring off the lateral border of the patella but still maintains good joint space.Assessment: Right knee medial meniscal tearPLAN: Given the catching locking and physical exam findings he has would recommend an MRI. Should the MRI be positive I have already discussed with him the role of arthroscopy with medial meniscal debridement. He understands this. All questions been answered. Follow-up with me to review the MRI in 2 weeks.[facility] speech recognition gang vibrator operator software was used to create portions of this document. An attempt at proofreading has been made to minimize errors. Please call for corrections. Bola Diaz PA-C [address] [facility] [address], [place], [address], [facility] 08/31/2024 07:27:17 4 text/html I am seeing the patient today under the supervision of Dr. Hugo who was available but who did not see the patient.History: This pleasant gentleman presents today for new problem of right knee pain. Pain is located about the medial aspect of his knee. Does have multiple joint problems did have it total hip arthroplasty at 46 years old prior to this had a lumbar disc removed. Presents today with pain about the medial aspect of his knee. Pain is present with all activity specifically with twisting. He gets episodes of catching and locking. Has had no treatment for this as of yet other than rest, ice, Tylenol and anti-inflammatories.Inter alyson History: Patient returns today for follow-up evaluation to review MRI findings regarding the right knee continues to complain of mechanical locking and catching symptoms. MRI Report: Independently reviewed today of the right knee findings include complex tear posterior horn medial meniscus with meniscal fragment flipped within the medial gutter, intact cruciate and collateral ligaments, mild chondromalacia of the patella. PMH: Asthma, hypertension, type 2 diabetes, gout, hypercholesterolemia Family Hx: Negative Meds: Lisinopril, ezetimibe, diltiazem, colchicine Allergies: NKDA ROS: Negative Social Hx: Negative PHYSICAL EXAMINATION: The patient is well appearing and in no apparent distress. Alert and oriented x3. Gait is symmetric. EXAM:HEENT is unremarkableHeart regular rate and rhythm without murmurs rubs gallopsAbdomen soft nontender nondistended positive bowel sounds.Lungs are clear bilaterally without rales rhonchi or wheezesPeripheral, vascular, lymphatic examination, skin, neurological, coordination, reflexes, sensation are within normal limits. Orthopedic Examination:Patient has a negative straight leg raise bilaterally.Right Hip: No tenderness to palpation full range of motion without referred pain to the kneeRight Knee: Tenderness to palpation medially. Markedly positive Melanie's test with recreation of symptoms that he feels when he gets catching and locking. No gross laxity. Minimal effusion. No erythema or warmth.Left Knee: No tenderness to palpation. No joint line tenderness. Negative Melanie's test. Full range of motion. Full muscle strength. No laxity.Antalgic gait pattern favoring the right side. Full strength and sensation distally.X-rays: Radiographs 4 views ordered obtained and independently reviewed today in the office of the right knee show decent preservation of joint space about the medial and lateral femoral compartments there is some slight spurring off the lateral border of the patella but still maintains good joint space.Assessment: Right knee medial meniscal tearPLAN: Considering the MRI findings the otherwise healthy looking knee on x-ray and lack of improvement with conservative measures I recommended patient book for right knee arthroscopy. Expectations timeline recovery all of which discussed today. There is no findings of today's exam that should prevent patient going forward with [facility] speech recognition gang vibrator operator software was used to create portions of this document. An attempt at proofreading has been made to minimize errors. Please call for corrections. Chucho Wong PA-C [address] [facility] [address] [place] [address], [address], [facility] 09/20/2024 15:05:21 5 text/html I am seeing the patient today under the supervision of Dr. Kay who was available but who did not see the patient. HISTORY OF PRESENT ILLNESS The patient returns for initial postop evaluation status post Right Knee Arthroscopy. Patient reports no initial adverse complications during the perioperative/postoperati ve course. They are pleased with their initial progress. Operative findings: Complex tear medial meniscus, mild grade 2 changes patella and medial compartment, intact cruciate ligaments, intact lateral compartment. PHYSICAL FINDINGS The patient ambulates with crutches, mild antalgic gait, 1+ effusion. Incision is healing well. Sutures Removed, steri's applied. No sign of infection or DVT. ASSESSMENT Status post right knee Arthroscopy PLAN Discussed plans for slow return to normal activities over 4-6 weeks. Continue modifications activities utilizing ice, oral NSAIDs as clinically indicated. Benefits of home physical therapy described and outlined in detail for the patient today. Recommendation is made for follow-up care in 6 weeks' time if patient remains symptomatic. Chucho Wong PA-C [address] [facility] [facility] [address], [place], [address], [facility] 11/07/2024 13:36:31
== END 2025-02-28 15:53 | disposition home or self-care (01) ==
LOC: HO.HMCC 14:53
PROVIDERS: PCP Nurse Practitioner Family; Visit Provider Nurse Practitioner Family
DX: E11.9 Type 2 diabetes mellitus without complications (principal); Z00.00 Encounter for general adult medical examination without abnormal findings; Z12.5 Encounter for screening for malignant neoplasm of prostate; A63.0 Anogenital (venereal) warts; N52.9 Male erectile dysfunction, unspecified; Z77.018 Contact with and (suspected) exposure to other hazardous metals; Z12.11 Encounter for screening for malignant neoplasm of colon; Z13.9 Encounter for screening, unspecified

== ENCOUNTER → 2025-02-28 14:52 | Outpatient (BNVA) | payer BC, SELFPAY | PROVIDERS: PCP Nurse Practitioner Family; Visit Provider Nurse Practitioner Family | DX: Z00.00 Encounter for general adult medical examination without abnormal findings (principal); E11.9 Type 2 diabetes mellitus without complications; A63.0 Anogenital (venereal) warts; N52.9 Male erectile dysfunction, unspecified; Z77.018 Contact with and (suspected) exposure to other hazardous metals | CPT/HCPCS: 83036; 96127 ==

== ENCOUNTER 2025-03-31 06:02 | Outpatient (REF) | payer BC, SELFPAY ==
--- OUTSIDE RECORDS SUMMARY | 2025-03-31 06:04 | XMS_ITS | Data Portability ---
Author Organization [facility]geons [facility], [facility] Address [address] [place] [address] Care Team Providers Care Bridge Club Manager Name Role Phone LINDA CARNEY Primary Care Provider Assessment No assessment recorded. Plan of Treatment Reminders Order Date Submit Date Provider Last Modified By Organization Details Last Modified Time Details Appointments None recorded. Lab None recorded. Referral None recorded. Procedures None recorded. Surgeries None recorded. Imaging XR, knee, 3 view - R knee 3 view rm 116 2023 [email or web address] [facility] Office, [address] [facility], [address], [place], [address], 4 09:33:46 MRI, knee, w/o contrast - Right knee mri w/o contrast ? MMT 2023 [email or web address] [facility] ([facility]), [address] [facility], [place], [address], 4 09:33:46 Medication Orders None recorded. Patient TargetsNo targets recorded. Patient InstructionsNo instructions recorded. Reason for Referral None Reported. Results Created Date Observation Date Name Description Value Unit Range Abnormal Flag Note LastModifiedBy Organization Detail LastModifiedTime 08/30/20 24 08/30/2024 XR, knee, 3 view [email or web address]:/ [email or web address] ?Encry pted=s hAaTro YD8dLq bEUv6g %2BXZw aYqtaq 0bqfl% 2Fg9IQ a4ajBk vP9nXo QUaueC m3YtLR FvZlgJ JJ8mAn HZtai3 8z0257 AC0Kqa H6FWaa kKiQtr MwF INTERFACE [facility] [address], [place], [address], 08/30/2024 17:11:25 08/30/20 24 08/30/2024 XR, knee, 3 view http:/ [email or web address] ?Encry pted=s hAaTro YD8dLq bEUv6g %2BXZw aYqtaq 0bqfl% 2Fg9IQ a4ajBk vP9nXo QUaueC m3YtLR FvZlgJ JJ8mAn HZtai3 8l2963 AC0Kqa H6FWaa kKiQtr MwF INTERFACE [facility] [address], [place], [address], 08/30/2024 17:11:27 09/13/20 24 09/10/2024 MRI, knee, w/o contr ast [facility] Access ion Number : [id number] Patichristiano t Name: Jassi Argueta Medica l Record Number : [id number] Date of : 1974 Date of Exam: 2023 Referr ing Physic ric: [facility]) [address], [address] [place] [address] Exam: MR Knee (C-) CPT 39068 - Right Room Descri ption: [facility] Pion 3T MRI right knee Histor y: Pain Findin gs: Comple x tear involv ing the body and analytical lab analyst ior horn of the medial menisc us. [...] x tear involv ing the body and analytical lab analyst ior horn of the medial menisc us. [...] ly Signed By: Jassi Gerardo MD dsaa [facility] ([facility]) [address], [place], [address], 10/06/2024 17:05:32 Result Notes None recorded. Problems Name Problem SNOMED Code Status Onset Date Resolution Date Notes Provider Name and Address Organization Details Recorded Time No complaint s 410439026 Active Status: 'I'; Not Available [facility] 4 09:21:11 Acute meniscal tear, medial 234492539 Active 2023 Chucho Wong PA-C [address], [facility] [place], [address] , [facility] 4 12:26:20 Follow-up orthopedi c assessmen t 570353584 Active 2018 Problem Code: Z47.89; Problem Code Type: ICD-10; Status: 'A'; Not Available [facility] 4 11:42:50 Lumbosacr al radiculop athy 0702924 Active 2018 Problem Code: M54.16; Problem Code Type: ICD-10; Status: 'A'; Not Available [facility] 4 11:42:50 Degenerat ion of lumbar intervert ebral disc 40434757 Active 2018 Problem Code: M51.36; Problem Code Type: ICD-10; Status: 'A'; Not Available [facility] 4 11:42:51 Radiculop athy due to lumbar intervert ebral disc disorder 505553646378 105 Active 2018 Problem Code: M51.16; Problem Code Type: ICD-10; Status: 'A'; Not Available [facility] 4 11:42:51 Idiopathi c osteoarth ritis 383109817 Active 2018 Problem Code: M16.11; Problem Code Type: ICD-10; Status: 'A'; Not Available [facility] 4 11:42:51 Problem Notes None recorded. Medical Equipment None Reported. Allergies Allergen ID Allergen Name Allergen Category Reaction Reaction Severity Criticality Documentation Date Start Date Code Code System Note Provider Name and Address Organization Details Recorded Time 07652 amoxicill in trihydrat e medicatio n Not available Not available Not available 01/04/20242016 99818 8 RxNorm Not Available [facility] 4 12:08:52 Medications Name Sig Start Date Stop [...] Updated DateTime 11/07/2024 180.34 cm 34.3 kg/m2 637558.72 g 98.1 [degF] Chucho Wong PA-C [address], [place], [address] , [facility] 11/07/2024 13:28:09 Date Recorded Body height Body mass index (BMI) Body weight Provider Name and Address Organization Details Last Updated DateTime 08/30/2024 180.34 cm 34.3 kg/m2 175243.72 g DUONG NELSON [facility] 08/30/2024 16:59:39 Date Recorded Body height Body mass index (BMI) Body weight Provider Name and Address Organization Details Last Updated DateTime 09/20/2024 180.34 cm 34.3 kg/m2 528542.72 g Chucho Wong PA-C [address], [place], [address], [facility] 09/20/2024 14:45:35 Social History None recorded. Functional Status None recorded. Mental Status None recorded. Family History Nothing Reported. Medical History Condition Response Cholesterol Y Diabetes Y Asthma Y Hypertension Y Past Encounters Encounter ID Performer Location Encounter Start Date Encounter Closed Date Diagnosis/Indication Diagnosis SNOMED-CT Code Diagnosis ICD10 Code Diagnosis Note [id number] Bola Diaz PA-C [address] [place] [address] 08/30/2024 16:52:29 09/23/2024 09:33:46 Pain of right knee region 5320445582 29170 M25.561 Tear of me dial meniscus of knee 054212504 S83.231A [id number] Chucho Wong PA-C [address] [place] [address] 09/20/2024 14:34:01 10/10/2024 09:19:35 Acute meniscal tear, medial 786369756 S83.231D [id number] Chucho Wong PA-C [facility] - [address] [place] [address] 11/07/2024 13:15:21 11/22/2024 11:04:22 History of arthroscopy of knee joint 214989567 Z98.890 Health Concerns Section Related Observation LastModified by Organization Detai ls LastModified Time None Recorded Concern Status LastModified by Organization Details LastModified Time None Recorded Advance Directives Directive None Recorded Payers Encounter Date Sequence Insurance Name Policy Number Policy Soto Covered Member ID Soto Member ID Guarantor Name 08/30/2024 1 [place] [id number] Chucho [place] [id number] Chucho [place] 09/20/2024 1 [place] [id number] Chucho [place] [id number] Chucho [place] 11/07/2024 1 [place] [id number] Chucho [place] [id number] Chucho [place] Notes Date Note Type Note Provider Name [...] Alert and lucid. 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 No spasticity [...] me to review the MRI in 2 weeks.[facility] speech recognition saw boss software was used to create portions of this document. An attempt at proofreading has been made to minimize errors. Please call for corrections. Bola Diaz PA-C [address] [place], [place] [address], [place], [address], [facility] 08/31/2024 07:27:17 4 text/html [...] that should prevent patient going forward with [facility] speech recognition saw boss software was used to create portions of this document. An attempt at proofreading has been made to minimize errors. Please call for corrections. Chucho Wong PA-C [address], [place], [address], [facility] 09/20/2024 15:05:21 5 text/html I am [...] patient remains symptomatic. Chucho Wong PA-C [address], [place], [address], [facility] 11/07/2024 13:36:31
[2025-03-31 10:22] LABS: MANUAL DIFF FLAG NO
[2025-03-31 10:30] LABS: Basophils Absolute Auto 0.1 X10*3/uL (0.0-0.2); Basophils Percent Auto 0.7 % (0-2); Eosinophils Absolute Auto 0.3 X10*3/uL (0.0-0.4); Eosinophils Percent Auto 2.1 % (0-4); Hematocrit 46.2 % (42.0-52.0); Hemoglobin 16.7 g/dl (14.0-18.0); Imm Gran Abs Auto 0.05 X10*3/uL (0.00-0.03); Imm Gran Pct Auto 0.4 % (0.0-0.4); Lymphocytes Absolute Auto 2.5 X10*3/uL (1.2-4.9); Lymphocytes Percent Auto 20.8 % (20-40); Mean Corpuscular HGB Conc 36.1 g/dl (31.0-36.0); Mean Corpuscular Hemoglobin 33.1 pg (27.0-33.0); Mean Corpuscular Volume 91.5 fL (80.0-98.0); Mean Platelet Volume 10.7 fL (9.4-12.4); Monocytes Absolute Auto 0.8 X10*3/uL (0.1-1.2); Monocytes Percent Auto 6.3 % (2-11); Neutrophils Absolute Auto 8.4 x10*3/uL (2.0-8.3); Neutrophils Percent Auto 69.7 % (45-73); Platelet Count 217 X10*3/uL (160-400); Red Blood Count 5.05 X10*6/uL (4.60-5.80); White Blood Count 12.1 X10*3/uL (4.8-10.8)
[2025-03-31 10:59] LABS: Alanine Aminotransferase 35 U/L (0-40); Albumin Level 4.2 g/dL (3.5-5.0); Alkaline Phosphatase 78 U/L (39-117); Anion Gap 14 (12-20); Aspartate Amino Transferase 31 U/L (5-37); Bilirubin Total 0.5 mg/dL (0.0-1.0); Blood Urea Nitrogen 10 mg/dL (9-16); Calcium 9.5 mg/dL (8.4-10.2); Carbon Dioxide 24 mmol/L (22-29); Chloride 105 mmol/L (96-108); Cholesterol 140 mg/dL (<200); Estimated Glomerular Filt Rate > 60; Glucose Fasting 155 mg/dL (60-99); HDL Cholesterol 34 mg/dL (>40); LDL Cholesterol Calculated 72 mg/dL (<100); Potassium 3.8 mmol/L (3.3-5.1); Sodium 139 mmol/L (135-145); Triglycerides 173 mg/dL (<150)
[2025-03-31 11:03] LABS: TSH reflex Free T4 2.01 uIU/mL (0.32-4.0)
[2025-03-31 11:04] LABS: Creatinine Urine 209.84 mg/dL; Microalbum/Creatinine Ratio Ur 4.2 ug/mg cr (<30); Prostate Specific Antigen Scr 0.85 ng/mL (<0.05-4.0)
[2025-03-31 11:16] LABS: Appearance Urine Turbid; Color Urine Yellow; Glucose Urine UA 250 mg/dL (Negative); Leukocyte Esterase Urine Negative (Negative); Nitrite Urine Negative (Negative); PH 5.5 (5.0-9.0); Urine Blood Negative (Negative); Urine Ketones Trace mg/dL (Negative); Urine Protein Negative (Neg-Trace)
[2025-04-04 01:59] LABS: Arsenic, Blood <3 mcg/L (<23); Lead, Blood 1.4 mcg/dL (<3.5); Mercury, Blood <4 mcg/L (<=10)
[2025-04-04 16:53] LABS: Testosterone, Total 275 ng/dL (250-1100)
== END 2025-03-31 06:03 | disposition home or self-care (01) ==
LOC: HO.HMGCLDS 06:02
PROVIDERS: PCP Nurse Practitioner Family; Visit Provider Nurse Practitioner Family
DX: Z00.00 Encounter for general adult medical examination without abnormal findings (principal); E11.9 Type 2 diabetes mellitus without complications; Z12.5 Encounter for screening for malignant neoplasm of prostate; N52.9 Male erectile dysfunction, unspecified; Z77.018 Contact with and (suspected) exposure to other hazardous metals
CPT/HCPCS: 36415; 80053; 80061; 81003; 82043; 82175; 82570; 83655; 83825; 84153; 84402; 84403; 84443; 85025

== ENCOUNTER 2025-04-24 06:05 | Outpatient (REF) | payer BC, SELFPAY ==
--- OUTSIDE RECORDS SUMMARY | 2025-04-24 06:07 | XMS_ITS | Data Portability ---
Author Organization [facility], [facility] Address [address] [place] [address] Care Team Providers Care Programming Instructor Name Role Phone LINDA CARNEY Primary Care Provider Assessment No assessment recorded. Plan of Treatment Reminders Order Date Submit Date Provider Last Modified By Organization Details Last Modified Time Details Appointments None recorded. Lab None recorded. Referral None recorded. Procedures None recorded. Surgeries None recorded. Imaging XR, knee, 3 view - R knee 3 view rm 116 2023 [email or web address] [facility], [address], [address], [place], [address], 4 09:33:46 MRI, knee, w/o contrast - Right knee mri w/o contrast ? MMT 2023 [facility] ([facility]), [address], [place], [address], 4 09:33:46 Medication Orders None recorded. Patient TargetsNo targets recorded. Patient InstructionsNo instructions recorded. Reason for Referral None Reported. Results Created Date Observation Date Name Description Value Unit Range Abnormal Flag Note LastModifiedBy Organization Detail LastModifiedTime 08/30/2008/30/2024 XR, knee, 3 view [email or web address] ?Encry pted=s hAaTro YD8dLq bEUv6g %2BXZw aYqtaq 0bqfl% 2Fg9IQ a4ajBk vP9nXo QUaueC m3YtLR FvZlgJ JJ8mAn HZtai3 7d1848 AC0Kqa H6FWaa kKiQtr MwF INTERFACE [facility] [address], [place], [address], 08/30/2024 17:11:25 08/30/20 24 08/30/2024 XR, knee, 3 view http:/ [email or web address] ?Encry pted=s hAaTro YD8dLq bEUv6g %2BXZw aYqtaq 0bqfl% 2Fg9IQ a4ajBk vP9nXo QUaueC m3YtLR FvZlgJ JJ8mAn HZtai3 1w1086 AC0Kqa H6FWaa kKiQtr MwF INTERFACE [facility] [address], [place], [address], 08/30/2024 17:11:27 09/13/20 24 09/10/2024 MRI, knee, w/o contr ast [facility] Access ion Number : [id number] Sm[address] elaine Name: Jassi Argueta Medica l Record Number : [id number] Date of : 1974 Date of Exam: 2023 Referr ing Physic ric: [facility] ([facility]) [address], [address] [place] [address] Exam: MR Knee (C-) CPT 72251 - Right Room Descri ption: [facility] Pion 3T MRI right knee Histor y: Pain Findin gs: Comple x tear involv ing the body and rehabilitation caseworker ior horn of the medial menisc us. [...] x tear involv ing the body and rehabilitation caseworker ior horn of the medial menisc us. [...] onical ly Signed By: Jassi Gerardo MD [facility] ([facility]) [address] [facility], [place], [address], 10/06/2024 17:05:32 Result Notes Documentation Provider Name and Address Organization Details Recorded Time Xr, Knee, 3 View : [email or web address] Encrypted=cuRjOizUX9zHrgO Uv6g%0KWCxtWlxpa0ddui%2Fg 7BIb5viHqdS1wXaLQuxeAy9Jy NUEaGanIYC3gJlZHnfh21w032 2KV0RkeP4YMhnmFlPhmPvT Not Available [facility] 08/30/2024 17:11:26 Xr, Knee, 3 View : [email or web address] Encrypted=zdJhWuyGV3aLtcS Uv6g%9HGIzuKhiao8qnix%2Fg 0TMy5tnFzuM7mDgLQoihXi9Ep TFKwBarDZR3hHaXUfnq51a531 5YH3ZntZ5YCugbNwFppCyU Not Available [facility] 08/30/2024 17:11:28 Mri, Knee, W/o Contrast : [facility] Accession Number: [id number] Patient Name: Chucho Argueta Date of : 1975 Date of Exam: 09-10-2024 Referring Physician: Bola Diaz [facility] ([place]) [address] [place] [address] Exam: MR Knee (C-) CPT 93822 - Right Room Description: [facility] 3T MRI right knee History: Pain Findings: Complex tear involving the body and posterior horn of the medial meniscus. The tear has horizontal and radial components. A meniscal fragment is flipped into the inferior recess of the medial gutter on image 19 of series 6. Myxoid degeneration in the anterior horn of the medial meniscus. Mild thinning and irregularity within weightbearing surface cartilage of the medial compartment Mild myxoid degeneration of the lateral meniscus The ACL and PCL are intact The MCL is intact The LCL complex including the biceps femoris, popliteus and fibular collateral ligaments are intact The medial and lateral patellar retinacula are intact Small medial patellar plica. Thinning and irregularity within lateral patellar facet and patellar apex cartilage. The extensor mechanism is intact. Impression: Complex tear involving the body and posterior horn of the medial meniscus. Meniscal fragment is flipped into the inferior recess of the medial gutter on the image outlined above. Myxoid degeneration in the anterior horn of the medial meniscus. Mild myxoid degeneration within the lateral meniscus. Medial and patellofemoral compartment chondromalacia is outlined above Electronically Signed By: Chucho Diaz PA-C [address], [place], [address], [facility] 10/06/2024 17:05:32 Problems Name Problem SNOMED Code Status Onset Date Resolution Date Notes Provider Name and Address Organization Details Recorded Time No complaint s 822116215 Active Status: 'I'; Not Available [facility] 4 09:21:11 Acute meniscal tear, medial 959205859 Active 2023 Chucho Wong PA-C [address], [place], [address] , [facility] 4 12:26:20 Follow-up orthopedi c assessmen t 143920283 Active 2018 Problem Code: Z47.89; Problem Code Type: ICD-10; Status: 'A'; Not Available [facility] 4 11:42:50 Lumbosacr al radiculop athy 5777885 Active 2018 Problem Code: M54.16; Problem Code Type: ICD-10; Status: 'A'; Not Available [facility] 4 11:42:50 Degenerat ion of lumbar intervert ebral disc 86712105 Active 2018 Problem Code: M51.36; Problem Code Type: ICD-10; Status: 'A'; Not Available [facility] 4 11:42:51 Radiculop athy due to lumbar intervert ebral disc disorder 927306839860 105 Active 2018 Problem Code: M51.16; Problem Code Type: ICD-10; Status: 'A'; Not Available [facility] 4 11:42:51 Idiopathi c osteoarth ritis 819486374 Active 2018 Problem Code: M16.11; Problem Code Type: ICD-10; Status: 'A'; Not Available [facility] 4 11:42:51 Problem Notes None recorded. Medical Equipment None Reported. Allergies Allergen ID Allergen Name Allergen Category Reaction Reaction Severity Criticality Documentation Date Start Date Code Code System Note Provider Name and Address Organization Details Recorded Time 33617 amoxicill in trihydrat e medicatio n Not available Not available Not available 01/04/20242016 58731 8 RxNorm Not Available [facility] 4 12:08:52 Medications Name Sig Start [...] Updated DateTime 11/07/2024 180.34 cm 34.3 kg/m2 285982.72 g 98.1 [degF] Chucho Wong PA-C [address] [facility], [place], [address] , [place] - [facility] 11/07/2024 13:28:09 Date Recorded Body height Body mass index (BMI) Body weight Provider Name and Address Organization Details Last Updated DateTime 08/30/2024 180.34 cm 34.3 kg/m2 046614.72 g DUONG NELSON [place] - [facility] 08/30/2024 16:59:39 Date Recorded Body height Body mass index (BMI) Body weight Provider Name and Address Organization Details Last Updated DateTime 09/20/2024 180.34 cm 34.3 kg/m2 565307.72 g Chucho Wong PA-C [address], [place], [address], [place] - [facility] 09/20/2024 14:45:35 Social History None recorded. Functional Status None recorded. Mental Status None recorded. Family History Nothing Reported. Medical History Condition Response Cholesterol Y Diabetes Y Asthma Y Hypertension Y Past Encounters Encounter ID Performer Location Encounter Start Date Encounter Closed Date Diagnosis/Indication Diagnosis SNOMED-CT Code Diagnosis ICD10 Code Diagnosis Note [id number] Bola Diaz PA-C [place] [address] [place] [address] 08/30/2024 16:52:29 09/23/2024 09:33:46 Pain of right knee region 4871489571 79332 M25.561 Tear of me dial meniscus of knee 163579727 S83.231A [id number] Chucho Wong PA-C [address] [place] [address] 09/20/2024 14:34:01 10/10/2024 09:19:35 Acute meniscal tear, medial 375566068 S83.231D [id number] Chucho Wong PA-C [facility] - [address] [place] [address] 11/07/2024 13:15:21 11/22/2024 11:04:22 History of arthroscopy of knee joint 843607474 Z98.890 Health Concerns Section Related Observation LastModified by Organization Detai ls LastModified Time None Recorded Concern Status LastModified by Organization Details LastModified Time None Recorded Advance Directives Directive None Recorded Payers Insurance Date Sequence Insurance Name Policy Number Policy Soto Covered Member ID Soto Member ID Guarantor Name 11/22/2024 1 [employer] (PPO) [id number] Chucho Argueta [id number] Chucho Argueta Notes Date Note Type [...] Alert and lucid. Normal insight, affect and grooming.STRATEGIC INSIGHTS LEAD: Gross motor coordination is intact. No spasticity [...] me to review the MRI in 2 weeks.[employer] speech recognition arterial embalmer software was used to create portions of this document. An attempt at proofreading has been made to minimize errors. Please call for corrections. Bola Diaz PA-C [address] [place] [address] [address], [place], [address], [facility] - [facility] 08/31/2024 07:27:17 4 text/html [...] that should prevent patient going forward with [facility] speech recognition arterial embalmer software was used to create portions of this document. An attempt at proofreading has been made to minimize errors. Please call for corrections. Chucho Wong PA-C [address], [place], [address], [facility] 09/20/2024 15:05:21 5 text/html I am [...] patient remains symptomatic. Chucho Wong PA-C [address], [place], [address], [facility] 11/07/2024 13:36:31
[2025-04-24 10:22] LABS: MANUAL DIFF FLAG NO
[2025-04-24 10:26] LABS: Basophils Absolute Auto 0.1 X10*3/uL (0.0-0.2); Eosinophils Absolute Auto 0.2 X10*3/uL (0.0-0.4); Eosinophils Percent Auto 2.3 % (0-4); Hematocrit 47.9 % (42.0-52.0); Hemoglobin 16.7 g/dl (14.0-18.0); Imm Gran Abs Auto 0.05 X10*3/uL (0.00-0.03); Imm Gran Pct Auto 0.5 % (0.0-0.4); Lymphocytes Absolute Auto 2.9 X10*3/uL (1.2-4.9); Lymphocytes Percent Auto 31.2 % (20-40); Mean Corpuscular HGB Conc 34.9 g/dl (31.0-36.0); Mean Corpuscular Hemoglobin 32.5 pg (27.0-33.0); Mean Corpuscular Volume 93.2 fL (80.0-98.0); Mean Platelet Volume 10.6 fL (9.4-12.4); Monocytes Absolute Auto 0.9 X10*3/uL (0.1-1.2); Monocytes Percent Auto 9.5 % (2-11); Neutrophils Absolute Auto 5.2 x10*3/uL (2.0-8.3); Neutrophils Percent Auto 55.5 % (45-73); Platelet Count 244 X10*3/uL (160-400); Red Blood Count 5.14 X10*6/uL (4.60-5.80); Red Cell Distribution Width 12.3 % (11.0-16.0); White Blood Count 9.4 X10*3/uL (4.8-10.8)
== END 2025-04-24 06:06 | disposition home or self-care (01) ==
LOC: HO.HMGCLDS 06:05
PROVIDERS: PCP Nurse Practitioner Family; Visit Provider Nurse Practitioner Family
DX: D72.829 Elevated white blood cell count, unspecified (principal)
CPT/HCPCS: 36415; 85025

== ENCOUNTER 2025-04-26 15:16 | Outpatient (AMB) | payer BC, SELFPAY ==
--- NOTE | 2025-04-26 15:17 | A.OFFVIS_ITS ---
Intake Visit Reasons: ED/venereal warts Intake Note: New Patient is present for erectile disfunction , venereal warts Urology Rx:none Blood Thinners:none labs 03/31/25 : PSA 0.85 , Total testosterone 275, Free testosterone 50.0 Pelt Inspector Required: No Accompanied by: Self / Same As Patient Allergies amoxicillin (AMOXICILLIN) Allergy (Mild, Verified 04/26/25 15:19) HIVES Digxqax-YEW-FyD Reductase Inhibitor Allergy (Mild, Verified 04/26/25 15:19) severe leg cramps HPI Comments Details: Chucho is a pleasant male. He is a patient of Dr. Tomlin. He is seen for the following urologic conditions - condyloma Previously treated in 2018 10 mm lesion on distal portion of left shaft Lesion too large to perform cryotherapy in office Recommend CO2 ablation [facility] Medical History Diverticulosis Tubular adenoma HTN (hypertension) Dyslipidemia Diabetes Surgical History History of surgery History of esophagogastroduodenoscopy (EGD) Hx of colonoscopy History of hip replacement, total Hx of cholecystectomy Family History Father Substance use disorder Mother No problems noted. Brother No problems noted. Sister No problems noted. Son No problems noted. Son No problems noted. Social History Housing: House Alcohol intake: current Alcohol intake frequency: 3 or more drinks per day Alcohol type: beer Patient Tobacco Use Status: Current everyday Tobacco user Tobacco use type: Cigarette Cigarette Packs Per Day: 0.75 Cigarettes Per Day: 15 Years Smoked: 32years e-Cigarette/Vaping Use: Never Used Second Hand Smoke Exposure: Yes service: Yes Current occupational status: employed Current occupation: [employer] Current occupational exposures/hazards: Yes Cognitive needs: No Hearing needs: No Vision needs: No Review of Systems Const Denies chills and Denies fever(s) Card Reports no additional complaints and Denies syncope Resp Denies cough GI Denies abdominal pain and Denies heartburn Reports as per HPI and Denies change in libido Neuro Denies syncope Psych Denies change in libido Endo Denies change in libido Physical Exam Const General: cooperative, healthy appearing, comfortable and no acute distress Orientation/consciousness: patient oriented x3 HEENT Face and sinus: Yes normal facial exam Mouth: moist mucous membranes Neck Neck: Yes normal visual inspection, Yes full ROM and Yes trachea midline Chest Chest palpation & inspection: normal inspection of the chest Resp Effort & Inspection: normal respiratory effort, able to speak in complete sentences and no respiratory distress GI Inspection: Yes normal to inspection Back/Spine/Pelvis Cervical Spine: normal cervical lordosis Thoracic/Lumbar Spine: thoracic and lumbar spine normal to inspection Skin General skin exam: no rashes or lesions noted Neuro General: patient oriented x3, gait normal, tone normal and moves all extremities Extrem General: Yes normal to inspection and Yes capillary refill normal Results AMB Urinalysis, Automated 2 UA Leukoctes 0 Dwight/uL Last Edit by Junie Boyd MA on 04/26/25 16:07 UA Nitrite Negative Last Edit by Junie Boyd ID on 04/26/25 16:07 UA Urobilinogen 3.5 mg/dL Last Edit by Junie Boyd ID on 04/26/25 16:07 UA Protein 0 mg/dL Last Edit by Junie Boyd ID on 04/26/25 16:07 UA pH 6.0 Last Edit by Junie Boyd ID on 04/26/25 16:07 UA Blood 0 Reese/uL Last Edit by Junie Boyd ID on 04/26/25 16:07 UA Specific [place] 1.020 Last Edit by Junie Boyd ID on 04/26/25 16:07 UA Ketone Negative Last Edit by Junie Boyd ID on 04/26/25 16:07 UA Bilirubin 0 mg/dL Last Edit by Junie Boyd ID on 04/26/25 16:07 UA Glucose 0 mg/dL Last Edit by Junie Boyd ID on 04/26/25 16:07 Assessment & Plan Assessment & Plan (1) Condyloma: Code(s): A63.0 - Anogenital (venereal) warts Category: Medical Plan Risks, benefits and alternatives to therapy were discussed. These include but are not limited to infection, bleeding, damage to local organs and tissues, need for further interventions. Anesthetic risks regarding cardiac arrhythmia, blood clots, and potential mortality were discussed. The patient understands the typical recovery time and the outpatient nature of the procedure. After consideration of these risks the patient gives full informed consent and they wish to move ahead with the procedure. CO2 laser ablation condyloma Orders: Orders AMB Urinalysis Automated Today Z13.9 - Encounter for screening, unspecified Patient Instructions: This note is constructed using voice recognition software. While every effort has been made to ensure accuracy interactive media marketing specialist errors may have been included. Imaging studies, laboratory and physical exam results were discussed and reviewed in detail. No major barriers to patient understanding were identified. An opportunity to ask questions regarding the treatment plan was provided. All questions were answered. The patient expressed understanding and agreement with the above treatment plan. The patient is aware they should contact our office by phone for worsening of their current condition or the appearance of new urologic symptoms. Compliance is encouraged with any medications and followup testing that is ordered. It is a privilege to participate in the urologic care of your patient. If you have any questions or concerns regarding treatment for the above conditions, or other urologic issues, please do not hesitate to contact me. The office telephone contact is [phone]. Sincerely, Dr Ulysses Alcaraz MD, [facility] - Urology Compassionate Specialist Care for the Genitourinary System Coding Level of Care Code New Pt Level 4 (18200) Diagnoses Condyloma A63.0
--- OUTSIDE RECORDS SUMMARY | 2025-04-26 18:09 | XMS_ITS | Data Portability ---
Author Organization [facility], [facility] Address [address] [place] [address] Care Team Providers Care Medical Technologist Chief Name Role Phone LINDA CARNEY Primary Care Provider Assessment No assessment recorded. Plan of Treatment Reminders Order Date Submit Date Provider Last Modified By Organization Details Last Modified Time Details Appointments None recorded. Lab None recorded. Referral None recorded. Procedures None recorded. Surgeries None recorded. Imaging XR, knee, 3 view - R knee 3 view rm 116 2023 [email or web address] [facility], [address], [address], [place], [address], 4 09:33:46 MRI, knee, w/o contrast - Right knee mri w/o contrast ? MMT 2023 [email or web address] [facility] ([facility]), [address], [place], [address], 4 09:33:46 Medication Orders None recorded. Patient TargetsNo targets recorded. Patient InstructionsNo instructions recorded. Reason for Referral None Reported. Results Created Date Observation Date Name Description Value Unit Range Abnormal Flag Note LastModifiedBy Organization Detail LastModifiedTime 08/30/2008/30/2024 XR, knee, 3 view http:/ [email or web address] ?Encry pted=s hAaTro YD8dLq bEUv6g %2BXZw aYqtaq 0bqfl% 2Fg9IQ a4ajBk vP9nXo QUaueC m3YtLR FvZlgJ JJ8mAn HZtai3 3x1264 AC0Kqa H6FWaa kKiQtr MwF INTERFACE [facility] [address], [place], [address], 08/30/2024 17:11:25 08/30/20 24 08/30/2024 XR, knee, 3 view [email or web address] ?Encry pted=s hAaTro YD8dLq bEUv6g %2BXZw aYqtaq 0bqfl% 2Fg9IQ a4ajBk vP9nXo QUaueC m3YtLR FvZlgJ JJ8mAn HZtai3 0r8074 AC0Kqa H6FWaa kKiQtr MwF INTERFACE [facility] [address], [place], [address], 08/30/2024 17:11:27 09/13/20 24 09/10/2024 MRI, knee, w/o contr ast [facility] Access ion Number : [id number] Name: Jassi Argueta Medica l Record Number : [id number] Date of : 1974 Date of Exam: 2023 Referr ing Physic ric: [facility] [address] [place] [address] Exam: MR Knee (C-) CPT 51491 - Right Room Descri ption: [facility] Pion 3T MRI right knee Histor y: Pain Findin gs: Comple x tear involv ing the body and biofuels operations manager ior horn of the medial menisc [...] x tear involv ing the body and biofuels operations manager ior horn of the medial menisc [...] onical ly Signed By: Jassi Gerardo MD [facility] ([facility]) [address] [facility], [place], [address], 10/06/2024 17:05:32 Result Notes Documentation Provider Name and Address Organization Details Recorded Time Xr, Knee, 3 View : [email or web address] Encrypted=gxJbVlxDO7eZbzP Uv6g%8ZCLoxCuudk9fxsp%2Fg 0MOg0reFjgM4qZkZQrviXb6Wf KOFhRdyZEX3jTuIAjmc54a070 6JX9IeyP4JBmwlIdScfRjX Not Available [facility] 08/30/2024 17:11:26 Xr, Knee, 3 View : [email or web address] Encrypted=mfMbGqeCA2cCydI Uv6g%1DXEndVlzrq1ckxc%2Fg 7GNl7fgSymT0kLuHWizlCu2Zl SBWkWdiRXE9pVnWMakb07c352 4UT7QuhM5JFefxDyApuMuQ Not Available [facility] 08/30/2024 17:11:28 Mri, Knee, W/o Contrast : [facility] Accession Number: [id number] Patient Name: Chucho Argueta Date of : 1975 Date of Exam: 09-10-2024 Referring Physician: Bola Diaz [facility] ([facility]) [address], [address] [place] [address] Exam: MR Knee (C-) CPT 60630 - Right Room Description: [facility] 3T MRI right knee History: Pain Findings: [...] Electronically Signed By: Chucho Diaz PA-C [address], [place], [address], [facility] 10/06/2024 17:05:32 Problems Name Problem SNOMED Code Status Onset Date Resolution Date Notes Provider Name and Address Organization Details Recorded Time No complaint s 829082870 Active Status: 'I'; Not Available [facility] 4 09:21:11 Acute meniscal tear, medial 764275675 Active 2023 Chucho Wong PA-C [address], [place], [address] , [facility] 4 12:26:20 Follow-up orthopedi c assessmen t 387221559 Active 2018 Problem Code: Z47.89; Problem Code Type: ICD-10; Status: 'A'; Not Available [facility] 4 11:42:50 Lumbosacr al radiculop athy 4582859 Active 2018 Problem Code: M54.16; Problem Code Type: ICD-10; Status: 'A'; Not Available [facility] 4 11:42:50 Degenerat ion of lumbar intervert ebral disc 85337066 Active 2018 Problem Code: M51.36; Problem Code Type: ICD-10; Status: 'A'; Not Available [facility] 4 11:42:51 Radiculop 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 Medical Equipment None Reported. Allergies Allergen ID Allergen Name Allergen Category Reaction Reaction Severity Criticality Documentation Date Start Date Code Code System Note Provider Name and Address Organization Details Recorded Time 91689 amoxicill in trihydrat e medicatio n Not available Not available Not available 01/04/20242016 88809 8 RxNorm Not Available [facility] 4 12:08:52 Medications Name Sig Start Date [...] Updated DateTime 11/07/2024 180.34 cm 34.3 kg/m2 275205.72 g 98.1 [degF] Chucho Wong PA-C [address], [facility] [place], [address] , [place] - [facility] 11/07/2024 13:28:09 Date Recorded Body height Body mass index (BMI) Body weight Provider Name and Address Organization Details Last Updated DateTime 08/30/2024 180.34 cm 34.3 kg/m2 551622.72 g DUONG NELSON [place] - [facility] 08/30/2024 16:59:39 Date Recorded Body height Body mass index (BMI) Body weight Provider Name and Address Organization Details Last Updated DateTime 09/20/2024 180.34 cm 34.3 kg/m2 880758.72 g Chucho Wong PA-C [address], [place], [address], [place] - [facility] 09/20/2024 14:45:35 Social History None recorded. Functional Status None recorded. Mental Status None recorded. Family History Nothing Reported. Medical History Condition Response Cholesterol Y Diabetes Y Asthma Y Hypertension Y Past Encounters Encounter ID Performer Location Encounter Start Date Encounter Closed Date Diagnosis/Indication Diagnosis SNOMED-CT Code Diagnosis ICD10 Code Diagnosis Note [id number] Bola Diaz PA-C [facility] [address] [place] [address] 08/30/2024 16:52:29 09/23/2024 09:33:46 Pain of right knee region 2853832197 02941 M25.561 Tear of me dial meniscus of knee 102322055 S83.231A [id number] Chucho Wong PA-C [facility] [address] [place] [address] 09/20/2024 14:34:01 10/10/2024 09:19:35 Acute meniscal tear, medial 311393437 S83.231D [id number] Chucho Wong PA-C [facility] [address] [place] [address] 11/07/2024 13:15:21 11/22/2024 11:04:22 History of arthroscopy of knee joint 189085667 Z98.890 Health Concerns Section Related Observation LastModified by Organization Detai ls LastModified Time None Recorded Concern Status LastModified by Organization Details LastModified Time None Recorded Advance Directives Directive None Recorded Payers Insurance Date Sequence Insurance Name Policy Number Policy Soto Covered Member ID Soto Member ID Guarantor Name 11/22/2024 1 JOSIE-SHANNON (PPO) [id number] Chucho Argueta [id number] Chucho Argueta Notes Date Note Type [...] Alert and lucid. 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 No spasticity [...] me to review the MRI in 2 weeks.[place] speech recognition special services supervisor software was used to create portions of this document. An attempt at proofreading has been made to minimize errors. Please call for corrections. Bola Diaz PA-C [address] [place] [address] [address], [place], [address], [facility] - [facility] 08/31/2024 07:27:17 4 text/html [...] that should prevent patient going forward with [facility] speech recognition special services supervisor software was used to create portions of this document. An attempt at proofreading has been made to minimize errors. Please call for corrections. Chucho Wong PA-C [address], [place], [address], [facility] 09/20/2024 15:05:21 [...] patient remains symptomatic. Chucho Wong PA-C [address], [place], [address], [facility] 11/07/2024 13:36:31
== END 2025-04-26 15:58 | disposition home or self-care (01) ==
LOC: HO.HUSH 15:17
PROVIDERS: PCP Nurse Practitioner Family; Visit Provider Urology
DX: Z13.9 Encounter for screening, unspecified (principal); A63.0 Anogenital (venereal) warts
CPT/HCPCS: 99204

== ENCOUNTER → 2025-04-26 15:16 | Outpatient (BNVA) | payer BC, SELFPAY | PROVIDERS: PCP Nurse Practitioner Family; Visit Provider Urology | DX: A63.0 Anogenital (venereal) warts (principal) | CPT/HCPCS: 81003 ==

== ENCOUNTER 2025-07-21 14:54 | Outpatient (AMB) | payer BC, SELFPAY ==
--- NOTE | 2025-07-21 14:57 | A.OFFVIS_ITS ---
Vital Signs 07/21/25 15:01 Height 5 ft 11 in Weight 244 lb 11.41 oz BMI 34.1 BP 144/75 H Blood Pressure Location Lt brachial Position Sitting Pulse 84 Intake Visit Reasons: Recall colo screening Intake Note: Chucho presents in the office as a recall colonoscopy screening. CC: No concerns at this time. Electromechanical Equipment Tester Required: No Allergies amoxicillin (AMOXICILLIN) Allergy (Mild, Verified 07/21/25 15:02) HIVES Bvezeja-MSH-DyF Reductase Inhibitor Allergy (Mild, Verified 07/21/25 15:02) severe leg cramps Medication List - Last Reconciled 07/21/25 by Myah Larios, AWS ARCHITECT-BC albuterol sulfate 90 mcg/actuation 2 puffs inhalation Q4-6H PRN blood sugar diagnostic As directed blood sugar diagnostic (FreeStyle Lite Strips) check glucose twice a day blood-glucose meter (FreeStyle Lite Meter kit) check glucose twice a day cholecalciferol (vitamin D3) 50 mcg PO DAILY 90 days colchicine 0.6 mg PO DAILY diltiazem HCl ER 60 mg PO BID esomeprazole magnesium (Nexium) 20 mg PO DAILY ezetimibe 10 mg PO DAILY 90 days lancets (FreeStyle Lancets) check glucose twice a day lisinopril 20 mg PO DAILY HPI HPI Recall colo screening: Details: LAST VISIT: Diverticulosis Moderate diverticulosis found. Patient was encouraged to increase fiber in his diet. He can take ryqz-dlo-vimupdu MiraLax if he likes. Patient denies any GI concerning symptoms today. Sigmoidoscopy showed hyperplastic changes without any carcinoma or high-grade dysplasia. Due to history of tubular adenoma on colonoscopy in April of 2022 patient was recommended to repeat colonoscopy in 3 years. Patient will call our office if he will have any GI concerning symptoms. He is agreeable to this plan and verbalizes understanding of instructions. He was given the opportunity to ask questions all questions answered. TODAY'S VISIT: Patient is here today to discuss going for colonoscopy. Patient denies any GI concerning symptoms. Tubular adenoma on colonoscopy in April of 2022 and recommendation was made for patient to return in 3 years. Family history of CRC. Patient denies any melena, hematochezia, unintentional weight loss or ribbon like stools. Patient denies any dyspepsia, dysphagia or odynophagia. Patient denies any issues with anesthesia in the past. No longer has sleep apnea. Patient lost weight, around 40 lb. Patient is not on any anticoagulation medication. [facility] Medical History (Updated 07/21/25 @ 19:59 by Myah Larios, [facility]) Diverticulosis Tubular adenoma HTN (hypertension) Dyslipidemia Diabetes Surgical History History of surgery History of esophagogastroduodenoscopy (EGD) Hx of colonoscopy History of hip replacement, total Hx of cholecystectomy Family History (Updated 07/21/25 @ 15:02 by EMERSON Fair) Father Substance use disorder Mother No problems noted. Brother No problems noted. Sister No problems noted. Son No problems noted. Son No problems noted. Maternal Grandfather Colon cancer Social History Housing: House Alcohol intake: current Alcohol intake frequency: 3 or more drinks per day Alcohol type: beer Patient Tobacco Use Status: Current everyday Tobacco user Tobacco use type: Cigarette Cigarette Packs Per Day: 0.75 Cigarettes Per Day: 15 Years Smoked: 32years e-Cigarette/Vaping Use: Never Used Second Hand Smoke Exposure: Yes service: Yes Current occupational status: employed Current occupation: [employer] Current occupational exposures/hazards: Yes Cognitive needs: No Hearing needs: No Vision needs: No Review of Systems Const Denies weight gain and Denies weight loss ENT Reports no additional complaints, Denies dysphagia and Denies odynophagia Card Reports no additional complaints Resp Reports no additional complaints GI Denies abdominal pain, Denies belching, Denies melena, Denies bloating, Denies change in bowel habits, Denies dysphagia, Denies excessive flatus, Denies dyspepsia, Denies heartburn, Denies diarrhea, Denies loose stools, Denies nausea, Denies odynophagia and Denies vomiting Reports no additional complaints Musc Reports no additional complaints Neuro Reports no additional complaints Psych Reports no additional complaints Endo Reports no additional complaints Physical Exam Vital Signs: Last Vital Signs Pulse 84 07/21/25 15:01 BP 144/75 H 07/21/25 15:01 BMI result Body Mass Index 34.1 Const General: healthy appearing, no acute distress and well developed Nutritional Appearance: well nourished Orientation/consciousness: patient oriented x3 Resp Effort & Inspection: normal respiratory effort, able to speak in complete sentences, no tracheal deviation and symmetric chest movement Auscultation: clear to auscultation bilaterally Cardio Rate: regular rate GI Inspection: Yes normal to inspection and No distended Palpation (GI): Soft to palpation, not firm, nontender and No hepatosplenomegaly present Auscultation: normal bowel sounds General: Yes no CVA tenderness Back/Spine/Pelvis Back: no CVA tenderness Skin General skin exam: elasticity normal, turgor normal and dry skin Neuro General: patient oriented x3 Psych Appearance: grossly normal Mental Status: mental status grossly normal Assessment & Plan Assessment & Plan (1) Screening for colon cancer: Code(s): Z12.11 - Encounter for screening for malignant neoplasm of colon Category: Medical (2) Diverticulosis: Code(s): K57.90 - Diverticulosis of intestine, part unspecified, without perforation or abscess without bleeding Category: Medical Plan What to expect before during and after procedure discussed with patient. Stressed the importance of good bowel prep and clear liquid diet day before procedure. Patient will be seen after the procedure. Message sent to surgical schedulers to call patient and book appointment. Patient would like to have his procedure end of September. Patient's daughter has a surgery beginning of September. Patient is agreeable to current plan of care and verbalizes understanding of instructions. He was given the opportunity to ask questions and all questions answered. Thank you for allowing me to participate in his care Orders: Referrals GI Procedure Notification Z12.11 - Encounter for screening for malignant neoplasm of colon Medications: New polyethylene glycol 3350 (Miralax) As directed by gastroenterology department at [facility] 238 grams PO ONCE 238 grams 0RF Z12.11 - Encounter for screening for malignant neoplasm of colon bisacodyl (Dulcolax (bisacodyl)) take 4 tabs at noon the day before your colonoscopy 20 mg (4 x 5 mg) PO ONCE 4 tabs 0RF constipation 1 day Z12.11 - Encounter for screening for malignant neoplasm of colon Coding Level of Care Code Est Pt Level 3 (55107) Diagnoses Screening for colon cancer Z12.11 Diverticulosis K57.90 Time Spent (min) 30 Comment 20 minutes spent with patient and additional 10 minutes spent reviewing her records
[2025-07-21 15:01] VITALS: BP 144/75; PULSE 84; BMI 34.1
== END 2025-07-21 18:28 | disposition home or self-care (01) ==
LOC: HO.HGI 14:55
PROVIDERS: PCP Nurse Practitioner Family; Visit Provider Nurse Practitioner Family
DX: Z01.818 Encounter for other preprocedural examination (principal); Z12.11 Encounter for screening for malignant neoplasm of colon; K57.90 Diverticulosis of intestine, part unspecified, without perforation or abscess without bleeding
CPT/HCPCS: S0285

== ENCOUNTER 2025-08-21 10:57 | Day surgery (SDC) | payer BC, SELFPAY ==
--- OUTSIDE RECORDS SUMMARY | 2025-07-26 15:39 | XMS_ITS | Data Portability ---
Author Organization [facility], [facility] Address [address] [place] [address] Care Team Providers Care Training And Development Coordinator Name Role Phone LINDA CARNEY Primary Care Provider Assessment No assessment recorded. Plan of Treatment Reminders Order Date Submit Date Provider Last Modified By Organization Details Last Modified Time Details Appointments None recorded. Lab None recorded. Referral None recorded. Procedures None recorded. Surgeries None recorded. Imaging XR, knee, 3 view - R knee 3 view rm 116 2023 [facility], [address], [address], [place], [address], 4 09:33:46 MRI, knee, w/o contrast - Right knee mri w/o contrast ? MMT 2023 [facility] ([facility]), [address], [place], [address], 4 09:33:46 Medication Orders None recorded. Patient TargetsNo targets recorded. Patient InstructionsNo instructions recorded. Reason for Referral None Reported. Results Created Date Observation Date Name Description Value Unit Range Abnormal Flag Note LastModifiedBy Organization Detail LastModifiedTime 08/30/2008/30/2024 XR, knee, 3 view http:/ [email or web address] ?Encry pted=s hAaTro YD8dLq bEUv6g %2BXZw aYqtaq 0bqfl% 2Fg9IQ a4ajBk vP9nXo QUaueC m3YtLR FvZlgJ JJ8mAn HZtai3 0d6125 AC0Kqa H6FWaa kKiQtr MwF INTERFACE [facility] [address], [place], [address], 08/30/2024 17:11:25 08/30/20 24 08/30/2024 XR, knee, 3 view [email or web address] ?Encry pted=s hAaTro YD8dLq bEUv6g %2BXZw aYqtaq 0bqfl% 2Fg9IQ a4ajBk vP9nXo QUaueC m3YtLR FvZlgJ JJ8mAn HZtai3 6a7419 AC0Kqa H6FWaa kKiQtr MwF INTERFACE [facility] [address], [place], [address], 08/30/2024 17:11:27 09/13/20 24 09/10/2024 MRI, knee, w/o contr ast [facility] Access ion Number : [id number] Name: Jassi Argueta Medica l Record Number : [id number] Date of : 1974 Date of Exam: 2023 Referr ing Physic ric: [facility] [address], [address] [place] [address] Exam: MR Knee (C-) CPT 53726 - Right Room Descri ption: [facility] Pion 3T MRI right knee Histor y: Pain Findin gs: Comple x tear involv ing the body and records associate ior horn of the medial menisc us. [...] x tear involv ing the body and records associate ior horn of the medial menisc us. [...] onical ly Signed By: Jassi Gerardo MD [facility] ([facility]) [address], [place], [address], 10/06/2024 17:05:32 Result Notes Documentation Provider Name and Address Organization Details Recorded Time Xr, Knee, 3 View : [email or web address] Encrypted=xdNpTvgKF4cVboE Uv6g%1WUAnyHikkt0herv%2Fg 9LTa4fpSmfO3aXtFBispNb6Ss WYGdVxhIIN7qOgZBibr19t521 0YS4LvpC6VOevvRvFsvIoF Not Available [facility] 08/30/2024 17:11:26 Xr, Knee, 3 View : [email or web address] Encrypted=viFaXgcEL7pCrmP Uv6g%5FTJwgLghgu6tjwr%2Fg 6NRk4vjXzgP0mGeIDszfTy5Id ELPpWdoSAG4yRaFVtyb23d801 3EH4WnpP4CFsctWpMkpBhX Not Available [facility] 08/30/2024 17:11:28 Mri, Knee, W/o Contrast : [facility] Accession Number: [id number] Patient Name: Chucho Argueta Date of : 1975 Date of Exam: 09-10-2024 Referring Physician: Bola Diaz [facility] ([place]) [address], [address] [place] [address] Exam: MR Knee (C-) CPT 23234 - Right Room Description: [facility] 3T MRI right knee History: Pain [...] Electronically Signed By: Chucho Diaz PA-C [address], [place], [address], [facility] - [facility] 10/06/2024 17:05:32 Problems Name Problem SNOMED Code Status Onset Date Resolution Date Notes Provider Name and Address Organization Details Recorded Time No complaint s 742022788 Active Status: 'I'; Not Available [facility] 4 09:21:11 Follow-up orthopedi c assessmen t 521477258 Active 2018 Problem Code: Z47.89; Problem Code Type: ICD-10; Status: 'A'; Not Available [facility] 4 11:42:50 Lumbosacr al radiculop athy 5108653 Active 2018 Problem Code: M54.16; Problem Code Type: ICD-10; Status: 'A'; Not Available [facility] 4 11:42:50 Degenerat ion of lumbar intervert ebral disc 25260064 Active 2018 Problem Code: M51.36; Problem Code Type: ICD-10; Status: 'A'; Not Available [facility] 4 11:42:51 Radiculop athy due to lumbar intervert ebral disc disorder 381622361102 105 Active 2018 Problem Code: M51.16; Problem Code Type: ICD-10; Status: 'A'; Not Available [facility] 4 11:42:51 Idiopathi c osteoarth ritis 717548925 Active 2018 Problem Code: M16.11; Problem Code Type: ICD-10; Status: 'A'; Not Available [facility] 4 11:42:51 Acute meniscal tear, medial 922375673 Active 2023 Chucho Wong PA-C [address] [place] [address] [address], [facility] [place], [address] , [facility] - [facility] 4 12:26:20 Problem Notes None recorded. Medical Equipment None Reported. Allergies Allergen ID Allergen Name Allergen Category Reaction Reaction Severity Criticality Documentation Date Start Date Code Code System Note Provider Name and Address Organization Details Recorded Time 27842 amoxicill in trihydrat e medicatio n Not available Not available Not available 01/04/20242016 32753 8 RxNorm Not Available [facility] 4 12:08:52 Medications Name Sig Start Date [...] Updated DateTime 11/07/2024 180.34 cm 34.3 kg/m2 636334.72 g 98.1 [degF] Chucho Wong PA-C [address], [place], [address] , [place] - [facility] 11/07/2024 13:28:09 Date Recorded Body height Body mass index (BMI) Body weight Provider Name and Address Organization Details Last Updated DateTime 08/30/2024 180.34 cm 34.3 kg/m2 481201.72 g [place]ONG [place] - [facility] 08/30/2024 16:59:39 Date Recorded Body height Body mass index (BMI) Body weight Provider Name and Address Organization Details Last Updated DateTime 09/20/2024 180.34 cm 34.3 kg/m2 579881.72 g Chucho Wong PA-C [address], [place], [address], [place] - [facility] 09/20/2024 14:45:35 Social History None recorded. Functional Status None recorded. Mental Status None recorded. Family History Nothing Reported. Medical History Condition Response Diabetes Y Hypertension Y Cholesterol Y Asthma Y Past Encounters Encounter ID Performer Location Encounter Start Date Encounter Closed Date Diagnosis/Indication Diagnosis SNOMED-CT Code Diagnosis ICD10 Code Diagnosis IMO Codes Diagnosis Note [id number] Bola Diaz PA-C [facility] [address] [place] [address] 08/30/2024 16:52:29 09/23/2024 09:33:46 Pain of right knee region 9826229702 27694 M25.561 81473583 Tear of me dial meniscus of knee 649171850 S83.231A 15724643 [id number] Chucho Wong PA-C [facility] [address] [place] [address] 09/20/2024 14:34:01 10/10/2024 09:19:35 Acute meniscal tear, medial 367260984 S83.231D [id number] Chucho Wong PA-C [facility] [address] [place] [address] 11/07/2024 13:15:21 11/22/2024 11:04:22 History of arthroscopy of knee joint 558071877 Z98.890 888596 Health Concerns Section Related Observation LastModified by Organization Detai ls LastModified Time None Recorded Concern Status LastModified by Organization Details LastModified Time None Recorded Advance Directives Directive None Recorded Payers Insurance Date Sequence Insurance Name Policy Number Policy Soto Covered Member ID Soto Member ID Guarantor Name 11/22/2024 1 [employer] [id number] Chucho Argueta [id number] Chucho Argueta Notes Date Note Type [...] Alert and lucid. 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 No spasticity [...] me to review the MRI in 2 weeks.[employer] [facility] speech recognition mapping specialist software was used to create portions of this document. An attempt at proofreading has been made to minimize errors. Please call for corrections. Bola Diaz PA-C [address], [place], [address], [facility] - [facility] 08/31/2024 07:27:17 4 text/html I am seeing [...] that should prevent patient going forward with [facility] speech recognition mapping specialist software was used to create portions of this document. An attempt at proofreading has been made to minimize errors. Please call for corrections. Chucho Wong PA-C [address], [place], [address], [facility] 09/20/2024 15:05:21 5 text/html I am seeing [...] patient remains symptomatic. Chucho Wong PA-C [address], [place], [address], [facility] 11/07/2024 13:36:31
[2025-08-17 13:30] VITALS: BMI 34.0
--- NOTE | 2025-08-18 09:34 | HO.ANESPROP2 ---
Documented by User: Rosa Salazar NP 08/18/25 09:35 HPI - Anesthesia Eval Consult details Narrative: 50yo M for Colonoscopy PMFSH Active Problems Active Problems: All Active Problems Heavy metal exposure (Acute) Erectile dysfunction (Acute) Condyloma (Acute) Screening for prostate cancer (Acute) Osteoarthritis (Acute) Smoker (Acute) Leukocytosis (Acute) Intraocular foreign body of right eye (Acute) COVID (Acute) Screening for colon cancer (Acute) Screening-pulmonary TB (Acute) Physical exam (Acute) Gout attack (Acute) Diverticulosis (Acute) Diabetes (Acute) Past Medical History Medical History (Updated 08/17/25 @ 13:30 by Melvi Fernando RN) Gout Osteoarthritis Heavy metal exposure Hx of flexible sigmoidoscopy Diverticulosis Tubular adenoma HTN (hypertension) Dyslipidemia Diabetes Family History Family History (Updated 07/21/25 @ 15:02 by EMERSON Fair) Father Substance use disorder Mother No problems noted. Brother No problems noted. Sister No problems noted. Son No problems noted. Son No problems noted. Maternal Grandfather Colon cancer Family history of problems with anesthesia: No Surgical History Surgical History History of surgery History of esophagogastroduodenoscopy (EGD) Hx of colonoscopy History of hip replacement, total Hx of cholecystectomy History of Problems with Anesthesia: No Social History Social History Housing: House Alcohol intake: current Alcohol intake frequency: 3 or more drinks per day Alcohol type: beer Patient Tobacco Use Status: Current everyday Tobacco user Tobacco use type: Cigarette Cigarette Packs Per Day: 0.75 Cigarettes Per Day: 15 Years Smoked: 32years e-Cigarette/Vaping Use: Never Used Second Hand Smoke Exposure: Yes Use of substances other than those prescribed or required for medical reasons: Yes Substance Use Frequency: Occasionally Advance Directives: No Advance Directives Information Provided: Yes service: Yes Current occupational status: employed Current occupation: [employer] Current occupational exposures/hazards: Yes Cognitive needs: No Hearing needs: No Vision needs: No Meds Allergies Allergy/AdvReac Type Severity Reaction Status Date / Time amoxicillin (AMOXICILLIN) Allergy Mild HIVES Verified 07/21/25 15:02 Aarkfex-NBN-KgQ Reductase Allergy Mild severe leg Verified 07/21/25 15:02 Inhibitor cramps Home Medications ?Medication ?Instructions ?Recorded ?Confirmed ?Last Taken ?Type lancets 28 gauge (FreeStyle #100 ea 12/25/20 07/21/25 Unknown History Lancets) esomeprazole magnesium 20 mg 20 mg PO DAILY 07/21/25 08/17/25 Unknown History capsule,delayed release (Nexium) Exam Height,Weight and Vital Signs: Height 5 ft 11 in Weight 110.677 kg Assessment and Plan Assessment Anesthesia Assessment: Chart Reviewed Final Anesthetic Review Family History of Problems with Anesthesia: No History of Problems with Anesthesia: No Documented by User: Felice Cruz MD 08/21/25 13:30 [facility] Past Medical History Medical History (Updated 08/17/25 @ 13:30 by Melvi Fernando RN) Gout Osteoarthritis Heavy metal exposure Hx of flexible sigmoidoscopy Diverticulosis Tubular adenoma HTN (hypertension) Dyslipidemia Diabetes Family History Family History (Updated 07/21/25 @ 15:02 by EMERSON Fair) Father Substance use disorder Mother No problems noted. Brother No problems noted. Sister No problems noted. Son No problems noted. Son No problems noted. Maternal Grandfather Colon cancer Surgical History Surgical History History of surgery History of esophagogastroduodenoscopy (EGD) Hx of colonoscopy History of hip replacement, total Hx of cholecystectomy Social History Social History Housing: House Alcohol intake: current Alcohol intake frequency: 3 or more drinks per day Alcohol type: beer Patient Tobacco Use Status: Current everyday Tobacco user Tobacco use type: Cigarette Cigarette Packs Per Day: 0.75 Cigarettes Per Day: 15 Years Smoked: 32years e-Cigarette/Vaping Use: Never Used Second Hand Smoke Exposure: Yes Use of substances other than those prescribed or required for medical reasons: Yes Substance Use Frequency: Occasionally Advance Directives: No Advance Directives Information Provided: Yes service: Yes Current occupational status: employed Current occupation: [employer] Current occupational exposures/hazards: Yes Cognitive needs: No Hearing needs: No Vision needs: No Meds Allergies Allergy/AdvReac Type Severity Reaction Status Date / Time amoxicillin (AMOXICILLIN) Allergy Mild HIVES Verified 07/21/25 15:02 Wcfnpxe-JDV-VoU Reductase Allergy Mild severe leg Verified 07/21/25 15:02 Inhibitor cramps Home Medications ?Medication ?Instructions ?Recorded ?Confirmed ?Last Taken ?Type lancets 28 gauge (FreeStyle #100 ea 12/25/20 07/21/25 Unknown History Lancets) esomeprazole magnesium 20 mg 20 mg PO DAILY 07/21/25 08/17/25 Unknown History capsule,delayed release (Nexium) Exam Airway Mallampati Class: I TM Dist: >3cm Neck ROM: Full Loose/Missing/Broken Teeth: No Heart: Rrr Lungs: CTA Assessment and Plan Assessment Anesthesia Assessment: Anesthesia Plan Discussed and Smoking Cess. Discussed Final Anesthetic Review NPO: Yes ASA Class: III Patient Risk: Low Procedure Risk: Low Anesthetic Plan Anesthetic Plan: MAC: Disposition: Standard PACU
[2025-08-21 11:58] VITALS: BMI 33.9
[2025-08-21 12:07] VITALS: BP 134/90; PULSE 77; RESP 16; TEMP 36.9; O2SAT 96
[2025-08-21] MEDS: Lactated Ringers 1,000 ML 100 ML IVCONT (12:07)
--- NOTE | 2025-08-21 12:39 | MHC.SHP ---
Pre-Procedural Eval Section A - 24 Hr Update-Section A only Date of Service: 08/21/25 The patient is an INPATIENT: No The patient has been examined within 24 hours of the surgical procedure. The History & Physical has been completed within 30 days and I have reviewed it.: No Section B - Complete if H&P > 30 days Chief Complaint: Surveillance for colon polyps Relevant Family History (Specify if Yes): No Relevant Social History: Tobacco Use Present Medications: see Short Stay Collaborative assessment Medical History: Significant History (Diverticulosis Tubular adenoma HTN (hypertension) Dyslipidemia Diabetes) History of Previous Operations: Relevant previous surgery/procedure and date(s) (History of surgery History of esophagogastroduodenoscopy (EGD) Hx of colonoscopy History of hip replacement, total Hx of cholecystectomy) Allergies: Allergies Allergy/AdvReac Type Severity Reaction Status Date / Time amoxicillin (AMOXICILLIN) Allergy Mild HIVES Verified 07/21/25 15:02 Kjsprye-XUT-BpJ Reductase Allergy Mild severe leg Verified 07/21/25 15:02 Inhibitor cramps Review of Systems Sugical H&P ROS: Negative: Constitution, Cardiovascular, Respiratory and Gastrointestinal Exam Surgical H&P Exam: Normal: Heart, Normal: Lungs, Normal: Extremities and Normal: Abdomen Plan Diagnosis/Plan: Unchanged I have reviewed the history and physical and performed a pertinent physical examination on my patient. No changes have occurred unless specified. Time Spent With Patient Time: Total time managing care of this patient today ____ minutes.
--- NOTE | 2025-08-21 14:18 | HO.OPN-COLON ---
Colonoscopy Operative Note Operative Note Date of Service: 08/21/25 Narrative: COLONOSCOPY TILL CECUM WITH BIOPSIES AND SNARE POLYPECTOMY Pre-op diagnosis: Surveillance for colon polyps. Post-op diagnosis:? Colon polyps, sigmoid colon nodule, Diverticulosis, hemorrhoids Endoscopist:? Joellen Jaquez MD Anesthesia:?MAC Consent: Indications for the procedure and potential complications of bleeding, perforation, reaction to medications and missed diagnosis were discussed with the patient and informed consent was obtained. Instrument: Olympus PCF H 190 L variable stiffness pediatric colonoscope Monitoring: Vital signs and clinical assessment, intermittent blood pressure monitoring, continuous EKG monitoring, Pulse oximetry and Carbon Dioxide monitoring were done throughout the procedure. Please see anesthesia flowsheet. Colon withdrawl time was 28 minutes. Procedure: The patient was placed in the left lateral decubitis position and pre-procedure medications were administered. After a digital rectal examination of the ano-rectum, the video colonoscope was inserted into the rectum and advanced through the colon to the cecum. The colonoscope was slowly withdrawn in a retrograde panoramic fashion and the colon mucosa was carefully examined including a retroflexed view of the rectum. Findings and interventions are described below. Procedure Difficulty: LLQ pressure was applied to intubate the cecum/ascending colon Findings: Terminal Ileum: Not evaluated Cecum: Possible adenomatous change in posterior lip of ICV - biopsies were obtained. Ascending Colon: Normal Transverse Colon: A 7-8 mm sessile polyp -removed with a hot snare Descending Colon: Moderate diverticulosis Sigmoid Colon: A 8-9 mm sessile polyp - removed with a hot snare. A 2.5 cms benign-appearing erythematous nodule in the sigmoid colon at 30 cms - biopsies were obtained. Moderate diverticulosis Rectum: Normal Ano-rectum: Moderate internal hemorrhoids Colon preparation: Good after copious irrigation. [place] Bowel Preparation Scale Right colon; 2 Transverse colon: 2 Left colon; 2 (0 = Unprepared colon segment with mucosa not seen due to solid stool that cannot be cleared. 1 = Portion of mucosa of the colon segment seen, but other areas of the colon segment not well seen due to staining, residual stool and/or opaque liquid. 2 = Minor amount of residual staining, small fragments of stool and/or opaque liquid, but mucosa of colon segment seen well. 3 = Entire mucosa of colon segment seen well with no residual staining, small fragments of stool or opaque liquid) Impression and Post Procedure Diagnosis: Colonoscopy Findings: Two small polyps were removed A 2.5 cms benign-appearing erythematous nodule in the sigmoid colon at 30 cms - biopsies were obtained. Moderate diverticulosis seen in the left colon Moderate hemorrhoids on retroflexed exam. Plan: I will send a letter with biopsy results. Repeat Colonoscopy in 5 years if polyps are adenomatous and 10 year if polyps are hyperplastic. (Dulcolax 10 mg daily starting 5 days prior to next colonoscopy appointment to improve colon prep) Above findings were reviewed with the patient and relevant handouts were given and the discharge area.
[2025-08-21 14:25] VITALS: BP 143/82; PULSE 77; RESP 16; TEMP 36.1; O2SAT 97
[2025-08-21 14:37] VITALS: BP 145/85; PULSE 68; RESP 16; TEMP 36.1; O2SAT 97
== END 2025-08-21 14:56 | disposition home or self-care (01) ==
PROVIDERS: PCP Nurse Practitioner Family; Visit Provider Internal Medicine Gastroenterology
PROC: 0DJD8ZZ Inspection of Lower Intestinal Tract, Via Natural or Artificial Opening Endoscopic (ICD-10-PCS; CPT 45378; principal; 2025-08-21 13:30)
DX: Z12.11 Encounter for screening for malignant neoplasm of colon (principal); Z86.0101 Personal history of adenomatous and serrated colon polyps; K64.8 Other hemorrhoids; K57.30 Diverticulosis of large intestine without perforation or abscess without bleeding; D12.5 Benign neoplasm of sigmoid colon; D12.3 Benign neoplasm of transverse colon
CPT/HCPCS: 45380; 45385; 88305; J2003; J2250; J2704

== ENCOUNTER → 2025-08-21 10:57 | Outpatient (BNV) | payer BC, SELFPAY | PROVIDERS: PCP Nurse Practitioner Family; Visit Provider Internal Medicine Gastroenterology | DX: Z12.11 Encounter for screening for malignant neoplasm of colon (principal); K63.89 Other specified diseases of intestine; K57.90 Diverticulosis of intestine, part unspecified, without perforation or abscess without bleeding; K64.8 Other hemorrhoids; K63.5 Polyp of colon | CPT/HCPCS: 45380; 45385 ==

== ENCOUNTER 2025-09-04 13:04 | Outpatient (AMB) | payer BC, SELFPAY ==
[2025-09-04 13:08] VITALS: BP 128/72; PULSE 69; TEMP 36.9; O2SAT 98; BMI 35.0
--- NOTE | 2025-09-04 13:08 | MHC.PC.OV ---
Vital Signs 09/04/25 13:08 Height 5 ft 11 in Weight 251 lb BMI 35.0 BP 128/72 Blood Pressure Location Lt brachial Position Sitting Pulse 69 Temp 98.5 F Pulse Oximetry (%) 98 Oxygen Delivery Method Room Air Intake Visit Reasons: 6m f/u Manager Information Required: No Accompanied by: Self / Same As Patient Allergies amoxicillin (AMOXICILLIN) Allergy (Mild, Verified 09/04/25 13:16) HIVES Ffzinzo-GDZ-YfO Reductase Inhibitor Allergy (Mild, Verified 09/04/25 13:16) severe leg cramps Tobacco use date assessed: 02/28/25 Dental Screening Dental Screen Date: 02/28/25 HPI 6m f/u HPI Details Chief Complaint The patient presents for a follow-up visit for diabetes management. History of Present Illness The patient is a 50-year-old male presenting for management of his diabetes. He has a history of diabetes, which is reportedly well-controlled, and he manages the condition primarily with diet. He denies any symptoms of neuropathy. His diabetic screenings, including eye exam and microalbumin, are up to date. Social History - Diet: The patient manages his diabetes mostly with diet. Health Maintenance - The patient's A1c is well-controlled, and a new fasting A1c will be ordered for monitoring. - He manages his diabetes with diet. - His eye exam is up to date. - His microalbumin test is up to date. Review of Systems - Neurological: Denies neuropathy. Physical Exam General: Cooperative, healthy appearing, comfortable, no acute distress and well developed Orientation: Patient oriented x3 Limitations: No limitations Head: Normal to inspection Ears: Hearing grossly normal bilaterally Nose: Normal external nose present Face and sinus: Normal facial exam Eyes: Appearance normal, both eyes and all related structures Neck: Normal visual inspection and Yes full ROM Respiratory: Normal respiratory effort and able to speak in complete sentences. Clear to auscultation bilaterally Cardiovascular: Regular rate and rhythm. Normal S1 and S2 GI: Normal to inspection. Soft to palpation and nontender Skin: No rashes or lesions noted Neuro: Patient oriented x3 Extremities: Normal to inspection, positive sensation with use of monofilament of feet, feet were intact Results - Labs: Microalbumin is up to date. - Other Studies: Eye exam is up to date. Plan 1. Diabetes Mellitus The patient's diabetes is well-controlled with diet. A fasting A1c will be ordered for continued monitoring. The physical exam showed intact feet with positive sensation to monofilament. His microalbumin and eye exam are up to date. Discussion Notes I discussed with the patient that his diabetes appears well-controlled with diet. I advised him that I will be ordering a fasting A1c for ongoing monitoring. We confirmed that his other diabetic screenings, such as his eye exam and microalbumin test, are current. Patient Instructions - Please go to the lab to get your blood drawn. I have ordered a fasting A1c test to check your diabetes. - Continue managing your diabetes with your diet as you have been doing. - Make sure to keep up with your regular eye exams. [facility] Medical History Gout Osteoarthritis Heavy metal exposure Hx of flexible sigmoidoscopy Diverticulosis Tubular adenoma HTN (hypertension) Dyslipidemia Diabetes Surgical History History of surgery History of esophagogastroduodenoscopy (EGD) Hx of colonoscopy History of hip replacement, total Hx of cholecystectomy Family History Father Substance use disorder Mother No problems noted. Brother No problems noted. Sister No problems noted. Son No problems noted. Son No problems noted. Maternal Grandfather Colon cancer Social History Housing: House Alcohol intake: current Alcohol intake frequency: 3 or more drinks per day Alcohol type: beer Patient Tobacco Use Status: Current everyday Tobacco user Tobacco use type: Cigarette Cigarette Packs Per Day: 0.75 Cigarettes Per Day: 15 Years Smoked: 32years Packs Per Year: 0 Packs per year/per ci.00 e-Cigarette/Vaping Use: Never Used Second Hand Smoke Exposure: Yes service: Yes Current occupational status: employed Current occupation: [employer] Current occupational exposures/hazards: Yes Cognitive needs: No Hearing needs: No Vision needs: No Questionnaire PHQ-9 Over the last 2 weeks, how often have you been bothered by any of the following problems? 1. Little interest or pleasure in doing things: not at all 2. Feeling down, depressed, or hopeless: not at all 3. Trouble falling or staying asleep, or sleeping too much: not at all 4. Feeling tired or having little energy: not at all 5. Poor appetite or overeating: not at all 6. Feeling bad about yourself - or that you are a failure or have let yourself or your family down: not at all 7. Trouble concentrating on things, such as reading the newspaper or watching television: not at all 8. Moving or speaking so slowly that other people could have noticed. Or the opposite - being so fidgety or restless that you have been moving around a lot more than usual: not at all 9. Thoughts that you would be better off or of hurting yourself in some way: not at all Total score: 0 Depression Screening Interpretation: Negative Depression Screening Done: Yes 13277 - PHQ-9 Billing: Yes Source: Developed by Drs. Man Cormier, Chanelle Gutierrez, Silvio Price and colleagues, with an educational genie from [employer]. Thrive Questionnaire Date Thrive assessed: 02/28/25 I am a: Patient What is your living situation today?: I have a steady place to live Within the past 12 months, did the food you bought not last and you didn't have the money to get more?: Never true Within the past 12 months, did you worry whether your food would run out before you got money to buy more?: Never true Do you have trouble paying for medicines?: No Do you have trouble getting transportation to medical appointments?: No Do you have trouble paying your heating and electricity bill?: No Do you have trouble taking care of your child, family member or friend?: I choose not to answer this question Do you have trouble with day-to-day activities such as bathing, preparing meals, shopping, managing finances, etc.?: I choose not to answer this question Are you currently unemployed and looking for a job?: I choose not to answer this question Are you interested in more education?: I choose not to answer this question Please select the resources that you would like help with: None Currently or been in a relationship where the following occur: I choose not to answer THRIVE Score: 0 MARY-7 AMB Questionnaire MARY-7 Date MARY - 7 assessed: 09/04/25 Feeling nervous, anxious, or on edge: 0 = Not at all Not being able to stop or control worryin = Not at all Worrying too much about different things: 0 = Not at all Trouble relaxin = Not at all Being so restless that it is hard to sit still: 0 = Not at all Becoming easily annoyed or irritable: 0 = Not at all Feeling afraid as if something awful might happen: 0 = Not at all Total MARY-7 score (0-4 normal; 5-9 mild; 10-14 moderate; 15-21 severe): 0 Source: Developed by Drs. Man Cormier, Chanelle Gutierrez, Silvio Price and colleagues, with an educational genie from [employer]. MARY-7 Assessment Billing MARY-7 Assessment Tool: MARY-7 Assessment 46984 Physical exam (Primary Care) Vital Signs: Last Vital Signs Temp 98.5 F 09/04/25 13:08 Pulse 69 09/04/25 13:08 BP 128/72 09/04/25 13:08 Pulse Ox 98 09/04/25 13:08 Oxygen Delivery Method Room Air 09/04/25 13:08 BMI result Body Mass Index 35.0 Tobacco/Smoking Status: Tobacco use Status Tobacco use date assessed 02/28/25 09/04/25 13:11 Patient Tobacco Use Status Current everyday Tobacco 09/04/25 13:11 Tobacco use type Cigarette 09/04/25 13:11 e-Cigarette/Vaping Use Never Used 09/04/25 13:11 PHQ-9: PHQ-9 Score PHQ-9: Total score 0 09/04/25 13:16 Depression Screening Interpretation: Negative Thrive Assessment: Date of Thrive Assessment Date Thrive assessed 02/28/25 09/04/25 13:11 Currently or been in a relationship where the following occur: I choose not to answer Coding Level of Care Code Est Pt Level 3 (51372) Diagnoses Diabetes E11.9 Additional Codes MARY-7 Assessment Billing - MARY-7 Assessment Tool: MARY-7 Assessment 74379 ([id number]) PHQ-9 - 80399 - PHQ-9 Billing: Yes ([id number]) Assessment & Plan Assessment & Plan (1) Diabetes: Comment: diet control Code(s): E11.9 - Type 2 diabetes mellitus without complications Category: Medical Plan . Orders: Orders TSH reflex Free T4 Today E11.9 - Type 2 diabetes mellitus without complications Lipid Panel Today E11.9 - Type 2 diabetes mellitus without complications Hemoglobin A1c Today E11.9 - Type 2 diabetes mellitus without complications Complete Blood Count Auto Diff Today E11.9 - Type 2 diabetes mellitus without complications Comprehensive [place]. Panel Fast Today E11.9 - Type 2 diabetes mellitus without complications UA CC w/rflx Micro + Cult Today E11.9 - Type 2 diabetes mellitus without complications
== END 2025-09-04 14:02 | disposition home or self-care (01) ==
LOC: HO.HMCC 13:05
PROVIDERS: PCP Nurse Practitioner Family; Visit Provider Nurse Practitioner Family
DX: E11.9 Type 2 diabetes mellitus without complications (principal)

== ENCOUNTER → 2025-09-04 13:04 | Outpatient (BNVA) | payer BC, SELFPAY | PROVIDERS: PCP Nurse Practitioner Family; Visit Provider Nurse Practitioner Family | DX: E11.9 Type 2 diabetes mellitus without complications (principal) | CPT/HCPCS: 96127 ==

== ENCOUNTER 2025-09-18 10:48 | Day surgery (SDC) | payer BC, SELFPAY ==
--- NOTE | 2025-09-13 14:35 | P.CONAN_ITS ---
Documented by User: Rosa Salazar NP 09/13/25 14:36 HPI - Anesthesia Eval Consult details Narrative: 50yo M for Penile Condyloma - CO2 laser needed s/p colo 08/2025 with TIVA DM2: Diet control PMFSH Active Problems Active Problems: All Active Problems Heavy metal exposure (Acute) Erectile dysfunction (Acute) Condyloma (Acute) Screening for prostate cancer (Acute) Osteoarthritis (Acute) Smoker (Acute) Leukocytosis (Acute) Intraocular foreign body of right eye (Acute) COVID (Acute) Screening for colon cancer (Acute) Screening-pulmonary TB (Acute) Physical exam (Acute) Gout attack (Acute) Diverticulosis (Acute) Diabetes (Acute) Past Medical History Medical History Gout Osteoarthritis Heavy metal exposure Hx of flexible sigmoidoscopy Diverticulosis Tubular adenoma HTN (hypertension) Dyslipidemia Diabetes Family History Family History Father Substance use disorder Mother No problems noted. Brother No problems noted. Sister No problems noted. Son No problems noted. Son No problems noted. Maternal Grandfather Colon cancer Family history of problems with anesthesia: No Surgical History Surgical History (Updated 09/14/25 @ 14:48 by Melvi Fernando RN) History of surgery History of esophagogastroduodenoscopy (EGD) Hx of colonoscopy History of hip replacement, total Hx of cholecystectomy History of Problems with Anesthesia: No Social History Social History Housing: House Alcohol intake: current Alcohol intake frequency: 3 or more drinks per day Alcohol type: beer Patient Tobacco Use Status: Current everyday Tobacco user Tobacco use type: Cigarette Cigarette Packs Per Day: 1.5 Cigarettes Per Day: 30.0 Years Smoked: 32years e-Cigarette/Vaping Use: Never Used Second Hand Smoke Exposure: Yes Use of substances other than those prescribed or required for medical reasons: Yes Are you DNR?: No Advance Directives: No Advance Directives Information Provided: Yes service: Yes Current occupational status: employed Current occupation: [employer] Current occupational exposures/hazards: Yes Cognitive needs: No Hearing needs: No Vision needs: No Meds Allergies Allergy/AdvReac Type Severity Reaction Status Date / Time amoxicillin (AMOXICILLIN) Allergy Mild HIVES Verified 09/04/25 13:16 Ajugjga-DUL-PqW Reductase Allergy Mild severe leg Verified 09/04/25 13:16 Inhibitor cramps Home Medications ?Medication ?Instructions ?Recorded ?Confirmed ?Last Taken ?Type lancets 28 gauge (FreeStyle #100 ea 12/25/20 07/21/25 Unknown History Lancets) esomeprazole magnesium 20 mg 20 mg PO DAILY 07/21/25 1 11/14/24 Unknown History capsule,delayed release (Nexium) Assessment and Plan Assessment Anesthesia Assessment: Chart Reviewed Final Anesthetic Review Family History of Problems with Anesthesia: No History of Problems with Anesthesia: No Documented by User: Giuseppe Kurtz MD 09/18/25 13:32 [facility] Past Medical History Medical History Gout Osteoarthritis Heavy metal exposure Hx of flexible sigmoidoscopy Diverticulosis Tubular adenoma HTN (hypertension) Dyslipidemia Diabetes Family History Family History Father Substance use disorder Mother No problems noted. Brother No problems noted. Sister No problems noted. Son No problems noted. Son No problems noted. Maternal Grandfather Colon cancer Surgical History Surgical History (Updated 09/14/25 @ 14:48 by Melvi Fernando RN) History of surgery History of esophagogastroduodenoscopy (EGD) Hx of colonoscopy History of hip replacement, total Hx of cholecystectomy Social History Social History Housing: House Alcohol intake: current Alcohol intake frequency: 3 or more drinks per day Alcohol type: beer Patient Tobacco Use Status: Current everyday Tobacco user Tobacco use type: Cigarette Cigarette Packs Per Day: 1.5 Cigarettes Per Day: 30.0 Years Smoked: 32years e-Cigarette/Vaping Use: Never Used Second Hand Smoke Exposure: Yes Use of substances other than those prescribed or required for medical reasons: Yes Are you DNR?: No Advance Directives: No Advance Directives Information Provided: Yes service: Yes Current occupational status: employed Current occupation: [employer] Current occupational exposures/hazards: Yes Cognitive needs: No Hearing needs: No Vision needs: No Meds Allergies Allergy/AdvReac Type Severity Reaction Status Date / Time amoxicillin (AMOXICILLIN) Allergy Mild HIVES Verified 09/04/25 13:16 Aioxbrh-WIA-FyZ Reductase Allergy Mild severe leg Verified 09/04/25 13:16 Inhibitor cramps Home Medications ?Medication ?Instructions ?Recorded ?Confirmed ?Last Taken ?Type lancets 28 gauge (FreeStyle #100 ea 12/25/20 07/21/25 Unknown History Lancets) esomeprazole magnesium 20 mg 20 mg PO DAILY 07/21/25 1 11/14/24 Unknown History capsule,delayed release (Nexium) Exam Airway Mallampati Class: I TM Dist: >3cm Neck ROM: Full Loose/Missing/Broken Teeth: No Heart: ok Lungs: ok Assessment and Plan Assessment Anesthesia Assessment: Anesthesia Plan Discussed Final Anesthetic Review NPO: Yes ASA Class: II Final Preanesthetic Review: No Changes in Pt Med Stat, Meds/Allgs Chart Reviewed, Consent Obtained/Reviewed and Anes Risks/Benef Reviewed Patient Risk: Intermediate Procedure Risk: Low Anesthetic Plan Anesthetic Plan: GA and Agree w/ Assess. and Plan Disposition: Standard PACU
[2025-09-14 14:49] VITALS: BMI 35.0
[2025-09-18 11:07] VITALS: BMI 34.3
[2025-09-18 11:13] VITALS: BP 147/94; PULSE 81; RESP 16; TEMP 36.8; O2SAT 96
--- NOTE | 2025-09-18 11:28 | MHC.SHP ---
Pre-Procedural Eval Section A - 24 Hr Update-Section A only Date of Service: 09/18/25 The patient is an INPATIENT: No Changes since office visit: No Cold of Flu in the past 2 weeks, No New Medical Problems, No Changes in Medication and No Patient answered all questions The patient has been examined within 24 hours of the surgical procedure. The History & Physical has been completed within 30 days and I have reviewed it.: No Section B - Complete if H&P > 30 days Chief Complaint: Condyloma latum Details of Present Illness: Laser of recurrent penile condyloma Relevant Family History (Specify if Yes): No Relevant Social History: None Present Medications: see Short Stay Collaborative assessment Medical History: No relevant PMH History of Previous Operations: No relevant previous surgery Allergies: Allergies Allergy/AdvReac Type Severity Reaction Status Date / Time amoxicillin (AMOXICILLIN) Allergy Mild HIVES Verified 09/04/25 13:16 Nfpeauw-UZX-CeZ Reductase Allergy Mild severe leg Verified 09/04/25 13:16 Inhibitor cramps Review of Systems Sugical H&P ROS: Negative: Constitution, Cardiovascular, Respiratory, Neurological, Psychiatric, Hem-Onc, Allergic/Immunologic, Gastrointestinal, Genitourinary, Musculoskeletal, Integumentary, Endocrine and Eyes/Ears/Nose/Throat Exam Surgical H&P Exam: Normal: HEENT, Normal: Heart, Normal: Lungs, Normal: Extremities, Normal: Abdomen, Normal: Skin and Normal: Neurological Plan Diagnosis/Plan: Unchanged I have reviewed the history and physical and performed a pertinent physical examination on my patient. No changes have occurred unless specified. Time Spent With Patient Time: Total time managing care of this patient today ____ minutes.
[2025-09-18] MEDS: Lactated Ringers 1,000 ML 100 ML IVCONT (11:29)
--- NOTE | 2025-09-18 13:15 | W.PM.OPN ---
Operative Note Operative Note Date of Service: 09/18/25 Narrative: PreOperative Diagnosis: Penile condyloma Post Operative Diagnosis: 1 cm penile condyloma Procedure: Destruction of penile condyloma with CO2 laser Surgeon: Dr Ulysses Alcaraz Anesthesia: Sedation Indications for procedure: 1 cm distal left shaft penis penile condyloma Procedure: After informed consent was verified the patient was brought to the operating room and placed in a supine position. Anesthesia was administered per protocol. The patient was prepped and draped in a sterile fashion. Safety pause time-out was performed. Using a CO2 laser with power of 4 the lesion was elevated and divided on its base. We will be sent for pathology. Three other small areas toward the base of the penis that may represent early condyloma were ablated Dressing of bibuiotic cream was placed He tolerated the procedure well and was transferred in stable condition to recovery area Pathology: Penile condyloma Drains: []
[2025-09-18 13:24] VITALS: BP 111/68; PULSE 76; RESP 14; TEMP 36.4; O2SAT 94
[2025-09-18 13:29] VITALS: BP 107/72; PULSE 74; RESP 12; O2SAT 95
[2025-09-18 13:34] VITALS: BP 123/82; PULSE 78; RESP 16; O2SAT 97
[2025-09-18 13:39] VITALS: BP 109/81; PULSE 72; RESP 16; TEMP 37; O2SAT 96
== END 2025-09-18 13:53 | disposition home or self-care (01) ==
PROVIDERS: PCP Nurse Practitioner Family; Visit Provider Urology
PROC: (CPT 54055; principal; 2025-09-18 13:10)
DX: A51.31 Condyloma latum (principal); Z88.1 Allergy status to other antibiotic agents; Z88.8 Allergy status to other drugs, medicaments and biological substances; I10 Essential (primary) hypertension; E78.5 Hyperlipidemia, unspecified; E11.9 Type 2 diabetes mellitus without complications; Z79.899 Other long term (current) drug therapy; Z90.49 Acquired absence of other specified parts of digestive tract; Z96.641 Presence of right artificial hip joint; F17.210 Nicotine dependence, cigarettes, uncomplicated
CPT/HCPCS: 54057; 88304; J2003; J2704; J3010

== ENCOUNTER → 2025-09-18 10:48 | Outpatient (BNV) | payer BC, SELFPAY | PROVIDERS: PCP Nurse Practitioner Family; Visit Provider Urology | DX: A63.0 Anogenital (venereal) warts (principal) | CPT/HCPCS: 54057 ==

== ENCOUNTER 2025-10-24 14:36 | Outpatient (AMB) | payer BC, SELFPAY ==
--- NOTE | 2025-10-24 14:37 | A.OFFVIS_ITS ---
Intake Visit Reasons: Condyloma penile f/u SET UA Intake Note: Patient is present for Post Op for Condyloma Urology Rx:None Blood Thinners:none Abx Allergy : Amoxil PVR: labs 03/31/25 : PSA 0.85 , Total testosterone 275, Free testosterone 50.0 Band And Cuff Cutter Required: No Accompanied by: Self / Same As Patient Allergies amoxicillin (AMOXICILLIN) Allergy (Mild, Verified 10/24/25 14:38) HIVES Pivfpby-JDO-ClD Reductase Inhibitor Allergy (Mild, Verified 10/24/25 14:38) severe leg cramps HPI Comments Details: Chucho is a pleasant male. He is a patient of Dr. Tomlin. He is seen for the following urologic conditions - condyloma Follow-up from therapy On exam appears to have resolved Discussed use of topical therapy Condyloma - treated on prior occasions 2017, 2024 Previously treated in 2017 10 mm lesion on distal portion of left shaft Lesion too large to perform cryotherapy in office Recommend CO2 ablation PFSH Medical History Gout Osteoarthritis Heavy metal exposure Hx of flexible sigmoidoscopy Diverticulosis Tubular adenoma HTN (hypertension) Dyslipidemia Diabetes Surgical History (Updated 09/14/25 @ 14:48 by Melvi Fernando RN) History of surgery History of esophagogastroduodenoscopy (EGD) Hx of colonoscopy History of hip replacement, total Hx of cholecystectomy Family History Father Substance use disorder Mother No problems noted. Brother No problems noted. Sister No problems noted. Son No problems noted. Son No problems noted. Maternal Grandfather Colon cancer Social History Housing: House Alcohol intake: current Alcohol intake frequency: 3 or more drinks per day Alcohol type: beer Patient Tobacco Use Status: Current everyday Tobacco user Tobacco use type: Cigarette Cigarette Packs Per Day: 1.5 Cigarettes Per Day: 30.0 Years Smoked: 32years e-Cigarette/Vaping Use: Never Used Second Hand Smoke Exposure: Yes service: Yes Current occupational status: employed Current occupation: [employer] Current occupational exposures/hazards: Yes Cognitive needs: No Hearing needs: No Vision needs: No Review of Systems Const Denies chills and Denies fever(s) Card Reports no additional complaints and Denies syncope Resp Denies cough GI Denies abdominal pain and Denies heartburn Reports as per HPI and Denies change in libido Neuro Denies syncope Psych Denies change in libido Endo Denies change in libido Physical Exam Const General: cooperative, healthy appearing, comfortable and no acute distress Orientation/consciousness: patient oriented x3 HEENT Face and sinus: Yes normal facial exam Mouth: moist mucous membranes Neck Neck: Yes normal visual inspection, Yes full ROM and Yes trachea midline Chest Chest palpation & inspection: normal inspection of the chest Resp Effort & Inspection: normal respiratory effort, able to speak in complete sentences and no respiratory distress GI Inspection: Yes normal to inspection Back/Spine/Pelvis Cervical Spine: normal cervical lordosis Thoracic/Lumbar Spine: thoracic and lumbar spine normal to inspection Skin General skin exam: no rashes or lesions noted Neuro General: patient oriented x3, gait normal, tone normal and moves all extremities Extrem General: Yes normal to inspection and Yes capillary refill normal Assessment & Plan Assessment & Plan (1) Erectile dysfunction: Code(s): N52.9 - Male erectile dysfunction, unspecified Category: Medical (2) Condyloma: Code(s): A63.0 - Anogenital (venereal) warts Category: Medical Plan Six-month follow-up Patient Instructions: This note is constructed using voice recognition software. While every effort has been made to ensure accuracy high school assistant principal errors may have been included. Imaging studies, laboratory and physical exam results were discussed and reviewed in detail. No major barriers to patient understanding were identified. An opportunity to ask questions regarding the treatment plan was provided. All questions were answered. The patient expressed understanding and agreement with the above treatment plan. The patient is aware they should contact our office by phone for worsening of their current condition or the appearance of new urologic symptoms. Compliance is encouraged with any medications and followup testing that is ordered. It is a privilege to participate in the urologic care of your patient. If you have any questions or concerns regarding treatment for the above conditions, or other urologic issues, please do not hesitate to contact me. The office telephone contact is [phone]. Sincerely, Dr Ulysses Alcaraz MD, [facility] - Urology Compassionate Specialist Care for the Genitourinary System Coding Level of Care Code Est Pt Level 3 (76046) Diagnoses Erectile dysfunction N52.9 Condyloma A63.0
== END 2025-10-24 15:20 | disposition home or self-care (01) ==
LOC: HO.HUSH 14:37
PROVIDERS: PCP Nurse Practitioner Family; Visit Provider Urology
DX: N52.9 Male erectile dysfunction, unspecified (principal); A63.0 Anogenital (venereal) warts
CPT/HCPCS: 99213